=== PATIENT | female | born 1975 | race Caucasian/White ===

== ENCOUNTER 2019-01-27 15:56 | Emergency (ER) | payer OTHER ==
[2019-01-27] MEDS ORDERED: HYDROMORPHONE HCL 1 MG/ML INJ ONE (17:25)
[2019-01-27] MEDS ORDERED: dexAMETHasone 10 MG/ML VIAL ONE (17:25)
[2019-01-27] MEDS ORDERED: DIAZEPAM 5 MG TABLET ONE ×2 (17:25→18:41)
--- NOTE | 2019-01-27 18:38 | ER ---
Nurse's Notes [facility] Name: Sakina Pino Age: 43 yrs Sex: Female : 1975 Arrival Date: 01/27/2019 Time: 16:09 Bed 26 Private MD: Diagnosis: Pain in hip Presentation: 01/27 16:21 Presenting complaint: Patient states: left hip pain, hx of arachnoiditis that affects iw her left side, pain is chronic but got worse around noon today. Transition of care: patient was not received from another setting of care. Onset of symptoms was January 27, 2019. Risk Assessment: Do you want to hurt yourself or someone else? Patient reports no desire to harm self or others. Initial Sepsis Screen: Does the patient meet any 2 criteria? No. Patient's initial sepsis screen is negative. Does the patient have a suspected source of infection? No. Patient's initial sepsis screen is negative. Care prior to arrival: None. 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 - Social history:: Smoking status: Patient/guardian denies using tobacco. - Ebola Screening: : Patient negative for fever greater than or equal to 101.5 degrees Fahrenheit, and additional compatible Ebola Virus Disease symptoms Patient denies exposure to infectious person Patient denies travel to an Ebola-affected area in the 21 days before illness onset No symptoms or risks identified at this time. Screenin:53 Abuse screen: Denies threats or abuse. Denies injuries from another. Nutritional mg2 screening: No deficits noted. Tuberculosis screening: No symptoms or risk factors identified. Fall Risk Ambulatory Aid- None/Bed Rest/Nurse Assist (0 pts). Assessment: 18:52 General: Appears in no apparent distress. comfortable, Behavior is calm, cooperative. mg2 Pain: Complains of pain in left hip Pain does not radiate. Pain currently is 5 out of 10 on a pain scale. Quality of pain is described as aching, Pain began gradually, Is intermittent, chronic. Neuro: Level of Consciousness is awake, alert, obeys commands, Oriented to person, place, time, situation. Cardiovascular: Capillary refill < 3 seconds Patient's skin is warm and dry. Respiratory: Airway is patent Respiratory effort is even, unlabored, Respiratory pattern is regular, symmetrical. GI: No signs and/or symptoms were reported involving the gastrointestinal system. : No signs and/or symptoms were reported regarding the genitourinary system. EENT: No signs and/or symptoms were reported regarding the EENT system. Derm: Skin is intact, is healthy with good turgor, Skin is pink, warm \T\ dry. normal. Musculoskeletal: Circulation, motion, and sensation intact. Capillary refill < 3 seconds, Reports pain in left hip. Vital Signs: 16:24 BP 156 / 101; Pulse 97; Resp 20 S; Temp 97.4; Pulse Ox 100% on R/A; Weight 83.91 kg; iw Height 5 ft. 4 in. (162.56 cm); Pain 10/10; 18:30 BP 140 / 78; Pulse 90; Resp 18; Temp 98; Pulse Ox 100% on R/A; mg2 16:24 Body Mass Index 31.75 (83.91 kg, 162.56 cm) iw ED Course: 16:09 Patient arrived in ED. iw 16:22 Kenn[facility] Ordaz [facility]C [facility]. snw 16:22 Aliyah Campos MD is Attending Physician. snw 16:22 Triage completed. iw 16:24 Arm band placed on. iw 17:21 Yamil Ramirez, CAYLA is Primary Nurse. mg2 18:53 No provider procedures requiring assistance completed. Patient did not have IV access mg2 during this emergency room visit. 18:54 Patient has correct armband on for positive identification. mg2 Administered Medications: 17:31 Drug: Dilaudid 1 mg Route: IM; Site: right gluteus; mg2 18:51 Follow up: Response: No adverse reaction mg2 18:52 Follow up: Response: RASS: Alert and Calm (0) mg2 17:31 Drug: Valium 5 mg Route: PO; mg2 18:51 Follow up: Response: No adverse reaction mg2 17:32 Drug: Decadron 10 mg Route: IM; Site: left gluteus; mg2 18:52 Follow up: Response: No adverse reaction mg2 18:49 Drug: Valium 5 mg Route: PO; mg2 18:51 Follow up: Response: No adverse reaction; Medication administered at discharge. mg2 Outcome: 18:37 Discharge ordered by . snw 18:54 Discharged to home via wheelchair, with family. mg2 18:54 Condition: stable 18:54 Discharge instructions given to patient, family, Instructed on discharge instructions, follow up and referral plans. Demonstrated understanding of instructions, follow-up care. 18:54 Patient left the ED. mg2 Signatures: Kennedi Ordaz, CARDROOM WORKER-C CARDROOM WORKER-Csnw Alma Delia Flores, CAYLA RN iw Yamil Ramirez RN RN mg2
--- NOTE | 2019-01-27 18:39 | EDPHYS ---
Physician Documentation [facility] Name: Sakina Pino Age: 43 yrs Sex: Female : 1975 Arrival Date: 01/27/2019 Time: 16:09 Bed 26 Private MD: ED Physician Aliyah Campos HPI: 01/27 17:31 This 43 yrs old Female presents to ER via Wheelchair with complaints of Hip snw Pain. 17:31 The patient or guardian reports pain. sustained from a chronic condition, There is no snw obvious deformity, The patient is able to ambulate with assistance. There is no radiation of the patient's discomfort. The complaints affect the left hip. Onset: The symptoms/episode began/occurred at 12:00, and became persistent. Associated signs and symptoms: Loss of consciousness: the patient experienced no loss of consciousness. 17:32 Severity of symptoms: At their worst the symptoms were severe, in the emergency snw department the symptoms are unchanged. patient has chronic pain, managed by Dr. Michaels. Called him today and pt was unable to see him. . [facility]. Pt has two pages of medications that she cannot take 2nd to study med treatment for medullary thyroid ca. Pt has pain pump, oral MS for breakthru pain and takes baclofen . 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 - Social history:: Smoking status: Patient/guardian denies using tobacco. - Ebola Screening: : Patient negative for fever greater than or equal to 101.5 degrees Fahrenheit, and additional compatible Ebola Virus Disease symptoms Patient denies exposure to infectious person Patient denies travel to an Ebola-affected area in the 21 days before illness onset No symptoms or risks identified at this time. ROS: 17:30 Constitutional: Negative for fever, chills, and weight loss, Eyes: Negative for injury, snw pain, redness, and discharge, ENT: Negative for injury, pain, and discharge, Neck: Negative for injury, pain, and swelling, Cardiovascular: Negative for chest pain, palpitations, and edema, Respiratory: Negative for shortness of breath, cough, wheezing, and pleuritic chest pain, Abdomen/GI: Negative for abdominal pain, nausea, vomiting, diarrhea, and constipation, Back: Negative for injury and pain, : Negative for injury, bleeding, discharge, and swelling, Skin: Negative for injury, rash, and discoloration, Neuro: Negative for headache, weakness, numbness, tingling, and seizure, Psych: Negative for depression, anxiety, suicide ideation, homicidal ideation, and hallucinations, Allergy/Immunology: Negative for hives, rash, and allergies. 17:30 MS/extremity: Positive for pain, of the left iliac crest and left hip. Exam: 17:28 Head/Face: Normocephalic, atraumatic. Eyes: Pupils equal round and reactive to light, snw extra-ocular motions intact. Lids and lashes normal. Conjunctiva and sclera are non-icteric and not injected. Cornea within normal limits. Periorbital areas with no swelling, redness, or edema. ENT: Nares patent. No nasal discharge, no septal abnormalities noted. Tympanic membranes are normal and external auditory canals are clear. Oropharynx with no redness, swelling, or masses, exudates, or evidence of obstruction, uvula midline. Mucous membranes moist. Neck: Trachea midline, no thyromegaly or masses palpated, and no cervical lymphadenopathy. Supple, full range of motion without nuchal rigidity, or vertebral point tenderness. No Meningismus. Chest/axilla: Normal chest wall appearance and motion. Nontender with no deformity. No lesions are appreciated. Cardiovascular: Regular rate and rhythm with a normal S1 and S2. No gallops, murmurs, or rubs. Normal PMI, no JVD. No pulse deficits. Respiratory: Lungs have equal breath sounds bilaterally, clear to auscultation and percussion. No rales, rhonchi or wheezes noted. No increased work of breathing, no retractions or nasal flaring. Abdomen/GI: Soft, non-tender, with normal bowel sounds. No distension or tympany. No guarding or rebound. No evidence of tenderness throughout. Back: No spinal tenderness. No costovertebral tenderness. Full range of motion. Skin: Warm, dry with normal turgor. Normal color with no rashes, no lesions, and no evidence of cellulitis. Neuro: Awake and alert, GCS 15, oriented to person, place, time, and situation. Cranial nerves II-XII grossly intact. Motor strength 5/5 in all extremities. Sensory grossly intact. Cerebellar exam normal. Normal gait. Psych: Awake, alert, with orientation to person, place and time. Behavior, mood, and affect are within normal limits. 17:28 Constitutional: The patient appears alert, awake, anxious, pale, flushed 17:28 Musculoskeletal/extremity: Extremities: grossly normal except: noted in the shocking, stabbing pain in left lateral and posterior hip: pain, Circulation is intact in all extremities. Severe pain noted. Vital Signs: 16:24 BP 156 / 101; Pulse 97; Resp 20 S; Temp 97.4; Pulse Ox 100% on R/A; Weight 83.91 kg; iw Height 5 ft. 4 in. (162.56 cm); Pain 10/10; 18:30 BP 140 / 78; Pulse 90; Resp 18; Temp 98; Pulse Ox 100% on R/A; mg2 16:24 Body Mass Index 31.75 (83.91 kg, 162.56 cm) iw MDM: 17:10 Patient medically screened. snw 18:38 Data reviewed: vital signs, nurses notes. Data interpreted: Pulse oximetry: on room air snw is 100 %. Interpretation: normal. Counseling: I had a detailed discussion with the patient and/or guardian regarding: the historical points, exam findings, and any diagnostic results supporting the discharge/admit diagnosis, the need for outpatient follow up, to return to the emergency department if symptoms worsen or persist or if there are any questions or concerns that arise at home. Special discussion: I have referred the patient to see his PCP for further evaluation of high blood pressure. Based on the history and exam findings, there is no indication for further emergent testing or inpatient evaluation. I discussed with the patient/guardian the need to see the scene painter for further evaluation of the symptoms. I discussed with the patient/guardian the need to see the primary care provider for further evaluation of the symptoms. Administered Medications: 17:31 Drug: Dilaudid 1 mg Route: IM; Site: right gluteus; mg2 18:51 Follow up: Response: No adverse reaction mg2 18:52 Follow up: Response: RASS: Alert and Calm (0) mg2 17:31 Drug: Valium 5 mg Route: PO; mg2 18:51 Follow up: Response: No adverse reaction mg2 17:32 Drug: Decadron 10 mg Route: IM; Site: left gluteus; mg2 18:52 Follow up: Response: No adverse reaction mg2 18:49 Drug: Valium 5 mg Route: PO; mg2 18:51 Follow up: Response: No adverse reaction; Medication administered at discharge. mg2 Disposition: 19:00 Co-signature as Attending Physician, Aliyah Campos MD. ma2 Disposition: 01/27/19 18:37 Discharged to Home. Impression: Pain in hip. - Condition is Stable. - Discharge Instructions: Joint Pain, Cryotherapy, Heat Therapy. - Medication Reconciliation Form, Thank You Letter, Antibiotic Education, Prescription Opioid Use form. - Follow up: Private Physician; When: Tomorrow; Reason: Recheck today's complaints, Continuance of care, Re-evaluation by your physician. Follow up: Emergency Department; When: As needed; Reason: Fever > 102 F. Signatures: Kennedi Ordaz, MONCHO-C FIBERGLASS FINISHER-Csnw Alma Delia Flores RN RN Aliyah Campos MD MD vt2 Yamil Ramirez RN RN mg2 Corrections: (The following items were deleted from the chart) 18:54 18:37 01/27/2019 18:37 Discharged to Home. Impression: Pain in hip. Condition is mg2 Stable. Forms are Medication Reconciliation Form, Thank You Letter, Antibiotic Education, Prescription Opioid Use. Follow up: Private Physician; When: Tomorrow; Reason: Recheck today's complaints, Continuance of care, Re-evaluation by your physician. Follow up: Emergency Department; When: As needed; Reason: Fever > 102 F. snw
[2019-01-27 20:10] VITALS: BP 156/101; TEMP 97.4; O2SAT 100
== END 2019-01-27 18:54 | disposition home or self-care (01) ==
LOC: ER 15:56
DX: M25.552 Pain in left hip (principal); Z88.0 Allergy status to penicillin; Z88.1 Allergy status to other antibiotic agents
CPT/HCPCS: 96372; 99283; J1100; J1170

== ENCOUNTER 2019-12-09 10:25 | Emergency (ER) | payer OTHER ==
--- OUTSIDE RECORDS SUMMARY | 2019-12-09 10:28 | XMS REPORT | Summary of Care ---
:1975 Author Organization [facility] - Health Address [address] [place] [address] Care Team Providers Name Role Phone Karlene Sanchez Primary Care Provider Encounter Details Date Type Department Care Team Description 10/11/2019 Orders Only [facility] Doctor Unassigned, No [address] [facility] Name [place] [phone] Allergies Active Allergy Reactions Severity Noted Date Comments Ciprofloxacin Nausea and/or Vomiting 09/09/2018 Hzcpmgxl-Mlaxekshaa-Zkbxfuowf Itching 09/09/2018 Penicillins Unknown - See comments 09/09/2018 Prochlorperazine Edisylate Other - See comments 2018 Sumatriptan Swelling 09/09/2018 documented as of this encounter (statuses as of 10/11/2019) Medications Medication Sig Dispensed Refills Start Date End Date Status cholecalciferol, vitamin Take 500 Units 0 Active D3, 25 mcg (1,000 unit) by mouth. tablet levothyroxine 150 mcg Take 150 mcg by 0 07/01/2019 Active tablet mouth. pioglitazone 30 mg Take 30 mg by 0 08/31/2018 Active tablet mouth. empagliflozin Take 25 mg by 0 09/08/2018 A ctive (JARDIANCE) 25 mg Tab mouth. lamoTRIgine 100 mg Take 100 mg by 0 08/24/2018 Active tablet mouth. amitriptyline 100 mg 0 08/04/2019 Active tablet sevelamer 800 mg tablet Take 800 mg by 0 06/02/2019 Active mouth. furosemide 20 mg tablet Take 20 mg by 0 Active mouth. baclofen 10 mg tablet Take 10 mg by 0 08/16/2018 Active mouth. oxyCODONE 5 mg immediate Take 5 mg by 0 08/08/2019 Active release tablet mouth. ondansetron 8 mg tablet Take 8 mg by 0 07/07/2019 Active mouth. QUEtiapine 300 mg tablet Take 300 mg by 0 11/27/2018 Active mouth. documented as of this encounter (statuses as of 10/11/2019) Active Problems Not on filedocumented as of this encounter (statuses as of 10/11/2019) Social History Tobacco Use Types Packs/Day Years Used Date Never Smoker Smokeless Tobacco: Never Used Alcohol Use Drinks/Week oz/Week Comments Never Alcohol Habits Answer Date Recorded How often do you have a drink containing alcohol? Never 09/21/2019 How many drinks containing alcohol do you have on a typical Not asked day when you are drinking? How often do you have six or more drinks on one occasion? No t asked Sex Assigned at Date Recorded Not on file Job Start Date Occupation Industry Not on file Not on file Not on file Travel History Travel Start Travel End No recent travel history available. COVID-19 Exposure Response Date Recorded In the last month, have you been in contact with No / Unsure 09/21/2019 1:10 PM CDT someone who was confirmed or suspected to have Coronavirus / COVID-19? documented as of this encounter Last Filed Vital Signs Not on filedocumented in this encounter Plan of Treatment Date Type Specialty Care Team Description 10/11/2019 Appointment Radiology Tariq Rae, PAC [address] [place] [phone] Health Maintenance Due Date Last Done Comments DTaP,Tdap,and Td Vaccines (1 - 1988 Tdap) PAP SMEAR 1998 Breast Cancer Screening 2017 (MAMMOGRAM) INFLUENZA VACCINE (Season Ended) 2020 PNEUMOCOCCAL 0-64 YEARS COMBINED Aged Out No longer eligible based on SERIES patient's age to complete this topic documented as of this encounter Procedures Procedure Name Priority Date/Time Associated Diagnosis Comme nts ASSIGNMENT OF BENEFITS Routine 10/11/2019 11:07 AM CDT documented in this encounter Results Not on filedocumented in this encounter Insurance Payer Benefit Plan / Subscriber ID Effective Phone Address T ype Group Dates MEDICARE MEDICARE PART xxxxxxxxxxx 2018-[place] [phone] [address] X Medicare A & B nt 82 [id number] [place] [id number] [place] CIGNA II [id number] 2019-[place] HMO /PPO/POS nt documented as of this encounter
--- OUTSIDE RECORDS SUMMARY | 2019-12-09 10:28 | XMS REPORT | Summary of Care ---
:1975 Author Organization [facility] Address [address] [place] [address] Care Team Providers Name Role Phone Pcp, Patient Does Not Have A Primary Care Provider +[id number] 0-0000 Reason for Visit Reason Comments Hip Pain Encounter Details Date Type Department Care Team Description 09/28/2019 Telephone [facility] Orthopaedic Mildred Rae, PAC Hip Pain Surgery- [place] [address] [facility] [address] [facility], [place] [address] [place] [address] [phone] Allergies Active Allergy Reactions Severity Noted Date Comments Ciprofloxacin Nausea and/or Vomiting 09/09/2018 Eyfikkwu-Mfqwcvcgcw-Hsxuxopsm Itching 09/09/2018 Penicillins Unknown - See comments 09/09/2018 Prochlorperazine Edisylate Other - See comments 2018 Sumatriptan Swelling 09/09/2018 documented as of this encounter (statuses as of 09/28/2019) Medications Medication Sig Dispensed Refills Start Date [...] as of this encounter (statuses as of 09/28/2019) Active Problems Not on filedocumented as of this encounter (statuses as of 09/28/2019) Social History Tobacco Use Types Packs/Day Years [...] filedocumented in this encounter Plan of Treatment Name Type Priority Associated Diagnoses Order S chedule XR KUB IMAGING Routine Right hip pain Expected: , Expires: 09/27/2020 Health Maintenance Due Date Last Done Comments DTaP,Tdap,and Td Vaccines (1 - 1988 Tdap) PAP SMEAR 1998 Breast Cancer Screening 2017 (MAMMOGRAM) INFLUENZA VACCINE (Season Ended) 2020 PNEUMOCOCCAL 0-64 YEARS COMBINED Aged Out No longer eligible based on SERIES patient's age to complete this topic documented as of this encounter Results Not on filedocumented in this encounter Visit Diagnoses Diagnosis Right hip pain - Primary Pain in joint, pelvic region and thigh documented in this encounter Insurance Payer Benefit Plan / Subscriber ID Effective Phone Address T ype Group Dates MEDICARE MEDICARE PART xxxxxxxxxxx 2018-[place] [phone] [address] Medicare A & B nt 82 [id number] [place] [id number] CIGNA CIGNA II [id number] 2019-[place] HMO /PPO/POS nt documented as of this encounter
--- OUTSIDE RECORDS SUMMARY | 2019-12-09 10:28 | XMS REPORT | Summary of Care ---
:1975 Author Organization [facility] Address [address] [place] [id number] Care Team Providers Name Role Phone Pcp, Patient Does Not Have A Primary Care Provider +[id number] 0-0000 Encounter Details Date Type Department Care Team Description 09/21/2019 [facility] [place] Rad[facility] [address] [place] [address] [place], [place] [phone] Allergies Active Allergy Reactions Severity Noted Date Comments Ciprofloxacin Nausea and/or Vomiting 09/09/2018 Fsjdvfuk-Pbtnmixdhi-Qunjgjhwp Itching 09/09/2018 Penicillins Unknown - See comments 09/09/2018 Prochlorperazine Edisylate Other - See comments 2018 Sumatriptan Swelling 09/09/2018 documented as of this encounter (statuses as of 09/22/2019) Medications Medication Sig Dispensed Refills Start Date [...] as of this encounter (statuses as of 09/22/2019) Active Problems Not on filedocumented as of this encounter (statuses as of 09/22/2019) Social History Tobacco Use Types Packs/Day Years [...] of Treatment Name Type Priority Associated Diagnoses Date/Ti me XR HIPS 2 VW RIGHT IMAGING Routine Pain 0 1:15 PM CDT Name Type Priority Associated Diagnoses Order S chedule XR HIPS 2 VW RIGHT IMAGING Routine Pain 1 Occurre nces starting 09/21/2019 unti l 09/21/2019 Health Maintenance Due Date Last Done Comments DTaP,Tdap,and Td Vaccines (1 - 1988 Tdap) PAP SMEAR 1998 Breast Cancer Screening 2017 (MAMMOGRAM) INFLUENZA VACCINE (Season Ended) 2020 PNEUMOCOCCAL 0-64 YEARS COMBINED Aged Out No longer eligible based on SERIES patient's age to complete this topic documented as of this encounter Results Not on filedocumented in this encounter Visit Diagnoses Diagnosis Pain Generalized pain documented in this encounter Insurance Payer Benefit Plan / Subscriber ID Effective Phone Address T ype Group Dates MEDICARE MEDICARE PART xxxxxxxxxxx 2018-[place] [phone] [address] Medicare A & B nt 82 [id number] [place] [id number] CIGNA CIGNA II [id number] 2019-[place] HMO /PPO/POS nt [id number] documented as of this encounter
--- OUTSIDE RECORDS SUMMARY | 2019-12-09 10:28 | XMS REPORT | Summary of Care ---
:1975 Author Organization [facility] - Health Address [address] [place] [address] Care Team Providers Name Role Phone Pcp, Patient Does Not Have A Primary Care Provider +1-000-00 0-0000 Encounter Details Date Type Department Care Team Description 09/26/2019 Orders Only [facility] Doctor Unassigned, No 301 [facility] Name [address] [phone] Allergies Active Allergy Reactions Severity Noted Date Comments Ciprofloxacin Nausea and/or Vomiting 09/09/2018 Nxfoyloj-Blpoquaxww-Kejlcipsr Itching 09/09/2018 Penicillins Unknown - See comments 09/09/2018 Prochlorperazine Edisylate Other - See comments 2018 Sumatriptan Swelling 09/09/2018 documented as of this encounter (statuses as of 09/26/2019) Medications Medication Sig Dispensed Refills Start Date [...] as of this encounter (statuses as of 09/26/2019) Active Problems Not on filedocumented as of this encounter (statuses as of 09/26/2019) Social History Tobacco Use Types Packs/Day Years [...] filedocumented in this encounter Plan of Treatment Health Maintenance Due Date Last Done Comments DTaP,Tdap,and Td Vaccines (1 - 1988 Tdap) PAP SMEAR 1998 Breast Cancer Screening 2017 (MAMMOGRAM) INFLUENZA VACCINE (Season Ended) 2020 PNEUMOCOCCAL 0-64 YEARS COMBINED Aged Out No longer eligible based on SERIES patient's age to complete this topic documented as of this encounter Procedures Procedure Name Priority Date/Time Associated Diagnosis Comme nts REFERRAL- Routine 09/26/2019 12:01 AM CDT REQUEST/RESPONSE documented in this encounter Results Not on filedocumented in this encounter Insurance Payer Benefit Plan / Subscriber ID Effective Phone Address T ype Group Dates MEDICARE MEDICARE PART xxxxxxxxxxx 2018-[place] [phone] [address] X Medicare A & B nt 82 [id number] [place] [id number] CIGNA CIGNA II [id number] 2019-[place] HMO /PPO/POS nt documented as of this encounter
--- OUTSIDE RECORDS SUMMARY | 2019-12-09 10:28 | XMS REPORT | Summary of Care ---
:1975 Author Organization [facility] Address [address] [place] [address] Care Team Providers Name Role Phone Pcp, Patient Does Not Have A Primary Care Provider [phone] Reason for Referral MRI/CAT Scan (Routine) Status Reason Specialty Diagnoses / Referred By Referred To Procedures Contact Contact New Request Diagnostic Diagnoses Right hip pain Camacho Burris Radiology Procedures MR HIP RIGHT WO LANEY Torres MD [address] [place] [address] [place] [address] Reason for Visit Reason Comments Orders Right Hip MRI Orders Encounter Details Date Type Department Care Team Description 09/22/2019 Telephone [facility] Orthopaedic Camacho Burris (Right Hip MRI Surgery- Dottie Torres MD Orders) [address] [facility], [address] [facility] [address] [facility] [place] [address] [address] [place], [place] [phone] Allergies Active Allergy Reactions Severity Noted Date Comments Ciprofloxacin Nausea and/or Vomiting 09/09/2018 Gpofgqoi-Xyuntyjrtq-Rpqioixsd Itching 09/09/2018 Penicillins Unknown - See comments [...] Type Priority Associated Diagnoses Order S chedule MR HIP RIGHT WO CONTRAST IMAGING Routine Right hip pain E xpected: 09/22/2019, Expires: 2020 Health Maintenance Due Date Last Done Comments [...] X Medicare A & B nt 82 [id number] [place] [id number] CIGNA CIGNA II [id number] 2019-Prese HMO /PPO/POS nt documented as of this encounter
--- OUTSIDE RECORDS SUMMARY | 2019-12-09 10:29 | XMS REPORT | Summary of Care ---
:1975 Author Organization [facility] - [facility] Address [address] [place] [address] Care Team Providers Name Role Phone Karlene Sanchez Primary Care Provider Reason for Visit Reason Comments Orders Please fax MRI orders to MD Coleman diagnostic [phone]. Also Can her issue be imaged by CT? She d oesn't have nearly as many problems with CT scans Encounter Details Date Type Department Care Team Description 11/08/2019 Telephone [facility] Orthopaedic Camacho Burris (Please fax MRI Surgery- Dottie Torres MD orders to MD Coleman [address], [address] [facility] [address] [phone]. [place] [address] [place], [place] her issue be imaged by [phone] CT? She doesn't have [phone] nearly as many problems [phone] scans ) (Fax) Allergies Active Allergy Reactions Severity Noted Date Comments Ciprofloxacin Nausea and/or Vomiting 09/09/2018 Iikwmyqv-Ktdzofuxce-Bijupwgjy Itching 09/09/2018 Penicillins Unknown - See comments 09/09/2018 Prochlorperazine Edisylate Other - See comments 2018 Sumatriptan Swelling 09/09/2018 documented as of this encounter (statuses as of 11/08/2019) Medications Medication Sig Dispensed Refills Start Date [...] as of this encounter (statuses as of 11/08/2019) Active Problems Not on filedocumented as of this encounter (statuses as of 11/08/2019) Social History Tobacco Use Types Packs/Day Years [...] been in contact with No / Unsure 10/11/2019 11:11 AM CDT someone who was confirmed or suspected to have Coronavirus / COVID-19? documented as of this encounter Last Filed Vital Signs Not on filedocumented in this encounter Plan of Treatment Health Maintenance Due Date Last Done Comments DTaP,Tdap,and Td Vaccines (1 - 1988 Tdap) Depression Screening 1989 PAP SMEAR 1998 Breast Cancer Screening 2017 [...] X Medicare A & B nt 82 [id number] [place] [address] CIGNA CIGNA II [id number] 2019-Prese HMO /PPO/POS nt documented as of this encounter
--- OUTSIDE RECORDS SUMMARY | 2019-12-09 10:29 | XMS REPORT | Summary of Care ---
:1975 Author Organization [facility] Address [address] [place] [address] Care Team Providers Name Role Phone Karlene Sanchez Primary Care Provider Reason for Visit Reason Comments Orders Please fax MRI orders to MD Coleman diagnostic [phone]. Also Can her issue be imaged by CT? She d oesn't have nearly as many problems with CT scans Encounter Details Date Type Department Care Team Description 11/08/2019 Telephone [facility] Orthopaedic Camacho Burris (Please fax MRI Surgery- Dottie Torres MD orders to MD Coleman [address] [place], [address] [facility] [address] [phone]. [place] [address] [address] [place], [place] her issue be imaged by [phone] CT? She doesn't have [phone] nearly as many problems [phone] scans ) (Fax) Allergies Active Allergy Reactions Severity Noted Date Comments Ciprofloxacin Nausea and/or Vomiting 09/09/2018 Hhzdywkf-Abyhyikyoc-Aarrbnvat Itching 09/09/2018 Penicillins Unknown - See comments 09/09/2018 Prochlorperazine Edisylate Other - See comments 2018 Sumatriptan Swelling 09/09/2018 documented as of this encounter (statuses as of 11/09/2019) Medications Medication Sig Dispensed Refills Start Date [...] as of this encounter (statuses as of 11/09/2019) Active Problems Not on filedocumented as of this encounter (statuses as of 11/09/2019) Social History Tobacco Use Types Packs/Day Years [...] X Medicare A & B nt 82 [id number] [place] [id number] CIGNA CIGNA II [id number] 2019-Prese HMO /PPO/POS nt documented as of this encounter
--- OUTSIDE RECORDS SUMMARY | 2019-12-09 10:29 | XMS REPORT | Summary of Care ---
:1975 Author Organization [facility] Address [address] [place] [address] Care Team Providers Name Role Phone Pcp, Patient Does Not Have A Primary Care Provider [phone] [phone] Reason for Referral Radiology Services (Routine) Status Reason Specialty Diagnoses / Referred By Referred To Procedures Contact Contact New Request Diagnostic Diagnoses Pain Camacho Burris Radiology Procedures XR HIPS 2 VW RIGHT MD Brian [address] [place] [address] Reason for Visit Reason Comments Hip Pain right hip pain, no injury, p ain ongoing for years worse the past 6 months. Arrived with crutch assist, no films. Encounter Details Date Type Department Care Team Description 09/21/2019 Office Visit [facility] Orthopaedic Camacho Burris L , Pain (Primary Dx) Surgery- Dottie MC [address] [facility] [address] [place] [address] [address] [place], [place] [phone] [address] Allergies Active Allergy Reactions Severity Noted Date Comments Ciprofloxacin Nausea and/or Vomiting 09/09/2018 Hamxcsyh-Fsfwerytnv-Qfhkuerhy Itching 09/09/2018 Penicillins Unknown - See comments 09/09/2018 Prochlorperazine Edisylate Other - See comments 2018 Sumatriptan Swelling 09/09/2018 documented as of this encounter (statuses as of 10/27/2019) Medications Medication Sig Dispensed Refills Start Date [...] as of this encounter (statuses as of 10/27/2019) Active Problems Not on filedocumented as of this encounter (statuses as of 10/27/2019) Social History Tobacco Use Types Packs/Day Years [...] of this encounter Last Filed Vital Signs Vital Sign Reading Time Taken Comments Blood Pressure 110/74 09/21/2019 1:23 PM CDT Pulse 83 09/21/2019 1:23 PM CDT Temperature - - Respiratory Rate - - Oxygen Saturation - - Inhaled Oxygen Concentration - - Weight 83.9 kg (185 lb) 09/21/2019 1:23 PM CDT Height 163.8 cm (5' 4.5") 09/21/2019 1:23 PM CDT Body Mass Index 31.26 09/21/2019 1:23 PM CDT documented in this encounter Progress Notes Camacho Burris MD - 09/21/2019 1:00 PM CDT Cc: Chief Complaint Patient presents with Hip Pain right hip pain, no injury, pain ongoing for years worse the past 6 months. Arrived with crutch assist, no films. Sakina Pino is a 44 year old female. Hip Pain Incident onset: over 2 years. The incident occurred at home. There was no injury mechanism. The painis present in the right hip. The quality of the pain is described as aching and burning. The pain isat a severity of 7/10. The pain is moderate. The pain has been worsening since onset. Associated symptoms include an inability to bear weight and a loss of motion. The symptoms are aggravated by movement and weight bearing. She has tried NSAIDs, non-weight bearing and acetaminophen for the symptoms. The treatment provided no relief. Allergies Sakina is allergic to ciprofloxacin; fiavaiqk-rtnwkucvwh-uiaengcao; penicillins; prochlorperazine edisylate; and sumatriptan. Medications No outpatient medications prior to visit. No facility-administered medications prior to visit. Histories No past medical history on file. No past surgical history on file. Social History Socioeconomic History Marital status: Single Spouse name: Not on file Number of children: Not on file Years of education: Not on file Highest education level: Not on file Occupational History Not on file Social Needs Financial resource strain: Not on file Food insecurity: Worry: Not on file Inability: Not on file Transportation needs: Medical: Not on file Non-medical: Not on file Tobacco Use Smoking status: Never Smoker Smokeless tobacco: Never Used Substance and Sexual Activity Alcohol use: Never Frequency: Never Drug use: Not on file Sexual activity: Not on file Lifestyle Physical activity: Days per week: Not on file Minutes per session: Not on file Stress: Not on file Relationships Social connections: Talks on phone: Not on file Gets together: Not on file Attends samaritan service: Not on file Active member of club or organization: Not on file Attends meetings of clubs or organizations: Not on file Relationship status: Not on file Intimate partner violence: Fear of current or ex partner: Not on file Emotionally abused: Not on file Physically abused: Not on file Forced sexual activity: Not on file Other Topics Concern Not on file Social History Narrative Not on file No family history on file. Review of Systems Constitutional: Positive for activity change. Respiratory: Negative. Breasts: Negative. Cardiovascular: Negative. Gastrointestinal: Negative. Genitourinary: Negative. Musculoskeletal: Positive for back pain and gait problem. Skin: Negative. Psychiatric/Behavioral: Negative. Endocrine: Endocrine negative Vital Signs There were no vitals taken for this visit. Physical Exam Musculoskeletal: Right hip: She exhibits decreased range of motion and decreased strength. General: Well-developed well-nourished oriented to person place and time HEENT normocephalic atraumatic atraumatic pupils equal round reactive to light extraocular muscles intact Cervical thoracic and lumbar spine without focal deficit normal kyphosis and lordosis Chest clear to auscultation and percussion Cardiovascular regular rate and rhythm without gallop rub or murmur soft without organomegaly Normal bowel sounds Neurologic: Focal myotome or dermatomal deficits Vascular: Intact symmetrical bilateral upper and lower extremities Skin without stasis varicosities or breakdown Extremities without cyanosis clubbing or edema Lymphatics no peripheral lymphedema Psych normal mood and affect. Neurovascular function is intact. To include brisk capillary refill warm pink skin active motor function and sensory function intact. Nursing note and vitals reviewed. Assessment/Plan Right hip pain Will order an MRI of the right hip. Follow up within ten days for results. documented in this encounter Plan of Treatment Health Maintenance Due Date Last Done Comments DTaP,Tdap,and Td Vaccines (1 - 1988 Tdap) Depression Screening 1989 PAP SMEAR 1998 Breast Cancer Screening 2017 (MAMMOGRAM) INFLUENZA VACCINE (Season Ended) 2020 PNEUMOCOCCAL 0-64 YEARS COMBINED Aged Out No longer eligible based on SERIES patient's age to complete this topic documented as of this encounter Results XR HIPS 2 VW RIGHT (09/21/2019 1:15 PM CDT) Specimen Narrative Performed At This result has an attachment that is no t available. Normal study PACS Performing Organization Address City/State/Zipcode Phone Number PACS documented in this encounter Visit Diagnoses Diagnosis Pain - Primary Generalized pain documented in this encounter Insurance Payer Benefit Plan / Subscriber ID Effective Phone Address T ype Group Dates MEDICARE MEDICARE PART xxxxxxxxxxx 2018-[place] [phone] [address] X Medicare A & B nt 82 [id number] [place] [id number] CIGNA CIGNA II [id number] 2019-[place] HMO /PPO/POS nt [id number] 1 documented as of this encounter
--- OUTSIDE RECORDS SUMMARY | 2019-12-09 10:29 | XMS REPORT | Summary of Care ---
:1975 Author Organization [facility] Address [address] [place] [address] Care Team Providers Name Role Phone Jarad Sanchezie Natalya Primary Care Provider Reason for Referral MRI/CAT Scan (Routine) Status Reason Specialty Diagnoses / Referred By Referred To Procedures Contact Contact Pending Review Diagnostic Diagnoses Right hip pain Camacho Burris Radiology Procedures CT HIP RIGHT WO LANEY Torres MD [address] [place] [address] [place] [address] Reason for Visit Reason Comments Orders CT Scan of RT Hip - Shaq son Encounter Details Date Type Department Care Team Description 11/25/2019 Telephone [facility] Orthopaedic Camacho Burris (CT Scan of RT Surgery- Dottie Torres MD Hip - MD Coleman ) [address] [facility] [address] [place] [address] [place], [place] [phone] Allergies Active Allergy Reactions Severity Noted Date Comments Ciprofloxacin Nausea and/or Vomiting 09/09/2018 Mtxjouov-Dgoghsqvsj-Tpexwxxga Itching 09/09/2018 Penicillins Unknown - See comments 09/09/2018 Prochlorperazine Edisylate Other - See comments 2018 Sumatriptan Swelling 09/09/2018 documented as of this encounter (statuses as of 11/25/2019) Medications Medication Sig Dispensed Refills Start Date [...] as of this encounter (statuses as of 11/25/2019) Active Problems Not on filedocumented as of this encounter (statuses as of 11/25/2019) Social History Tobacco Use Types Packs/Day Years [...] Travel End No recent travel history available. documented as of this encounter Last Filed Vital Signs Not on filedocumented in this encounter Plan of Treatment Name Type Priority Associated Diagnoses Order S chedule CT HIP RIGHT WO CONTRAST IMAGING Routine Right hip pain E xpected: 11/25/2019, Expires: 2020 Health Maintenance Due Date Last Done Comments DTaP,Tdap,and Td Vaccines (1 - 1988 Tdap) Depression Screening 1989 PAP SMEAR 1998 Breast Cancer Screening 2017 (MAMMOGRAM) INFLUENZA VACCINE (#1) 2020 PNEUMOCOCCAL 0-64 YEARS COMBINED Aged Out [...] X Medicare A & B nt 82 [id number] [place] [address] CIGNA CIGNA II [id number] 2019-Prese HMO /PPO/POS nt documented as of this encounter
--- OUTSIDE RECORDS SUMMARY | 2019-12-09 10:29 | XMS REPORT | Summary of Care ---
:1975 Author Organization [facility] Address [address] [place] [address] Care Team Providers Name Role Phone Daniel Karlene Natalya Primary Care Provider Encounter Details Date Type Department Care Team Description 10/11/2019 Hospital Encounter [facility] Mildred Celestin, PAC Arrived [facility] [address] [facility] [place] [address] [place] [address] [phone] Allergies Active Allergy Reactions Severity Noted Date Comments Ciprofloxacin Nausea and/or Vomiting 09/09/2018 Jlrwyici-Aieyfwmiiz-Cgyjjpanp Itching 09/09/2018 Penicillins Unknown - See comments 09/09/2018 Prochlorperazine Edisylate Other - See comments 2018 Sumatriptan Swelling 09/09/2018 documented as of this encounter (statuses as of 10/12/2019) Medications Medication Sig Dispensed Refills Start Date [...] as of this encounter (statuses as of 10/12/2019) Active Problems Not on filedocumented as of this encounter (statuses as of 10/12/2019) Social History Tobacco Use Types Packs/Day Years [...] Name Priority Date/Time Associated Diagnosis Comme nts XR KUB Routine 10/11/2019 12:10 PM Right hip pain Result s for this CDT procedure are i n the results section . documented in this encounter Results XR KUB (10/11/2019 12:10 PM CDT) Specimen Narrative Performed At HISTORY: Bone stimulator placement. PACS/VR/DOSE FINDINGS: 2 abdominal radiographs are winston bmitted. A morphine pump is seen implanted over the right abdominal wall with catheter entering the spinal canal at L3-L4 level and the electrode i s visualized projected up to the level of T12. Entire length of the Electrode wire is n ot included in these 2 images. Note made of mild constipation and multi level degenerative disc disease. Procedure Note [facility], Radiant Results Inft User - 2019 12:14 PM CDT HISTORY: Bone stimulator placement. FINDINGS: 2 abdominal radiographs are winston bmitted. A morphine pump is seen implanted over the right abdominal wall with catheter entering the spinal canal at L3-L4 level and the electrode i s visualized projected up to the level of T12. Entire length of the Elect rode wire is not included in these 2 images. Note made of mild constipation and multi level degenerative disc disease. Performing Organization Address City/[facility] Phone Number PACS/VR/DOSE documented in this encounter Visit Diagnoses Diagnosis Right hip pain Pain in joint, pelvic region and thigh documented in this encounter Insurance Payer Benefit Plan / Subscriber ID Effective Phone Address T ype Group Dates MEDICARE MEDICARE PART xxxxxxxxxxx 2018-Prese [phone] [address] X Medicare A & B nt 82 [id number] [place] [id number] CIGNA CIGNA II [id number] 2019-Prese HMO /PPO/POS nt [id number] 1 documented as of this encounter
--- OUTSIDE RECORDS SUMMARY | 2019-12-09 10:29 | XMS REPORT | Summary of Care ---
:1975 Author Organization [facility] Address [address] [place] [address] Care Team Providers Name Role Phone Karlene Sanchez Natalya Primary Care Provider Reason for Visit Reason Comments Orders Encounter Details Date Type Department Care Team Description 10/27/2019 Telephone [facility] Orthopaedic Camacho Burris MD Orders Surgery- Keymar [address] [facility] [address] [facility], [place] [address] [address] [place] [address] [phone] Allergies Active Allergy Reactions Severity Noted Date Comments Ciprofloxacin Nausea and/or Vomiting 09/09/2018 Pyieehun-Shyuukomit-Fdulpoydl Itching 09/09/2018 Penicillins Unknown - See comments 09/09/2018 Prochlorperazine Edisylate Other - See comments 2018 Sumatriptan Swelling 09/09/2018 documented as of this encounter (statuses as of 11/01/2019) Medications Medication Sig Dispensed Refills Start Date [...] as of this encounter (statuses as of 11/01/2019) Active Problems Not on filedocumented as of this encounter (statuses as of 11/01/2019) Social History Tobacco Use Types Packs/Day Years [...] X Medicare A & B nt 82 [id number] [place] [id number] CIGNA CIGNA II [id number] 2019-[place] HMO /PPO/POS nt documented as of this encounter
--- OUTSIDE RECORDS SUMMARY | 2019-12-09 10:29 | XMS REPORT | Summary of Care ---
:1975 Author Organization [facility] Address [address] [place] [address] Care Team Providers Name Role Phone Pcp, Patient Does Not Have A Primary Care Provider [phone] [phone] Reason for Referral Radiology Services (Routine) Status Reason Specialty Diagnoses / Referred By Referred To Procedures Contact Contact New Request Diagnostic Diagnoses Pain Camacho Burris Radiology Procedures XR HIPS 2 VW RIGHT MD Brian [address] [place] [address] Reason for Visit Reason Comments Hip Pain right hip pain, no injury, p ain ongoing for years worse the past 6 months. Arrived with crutch assist, no films. Encounter Details Date Type Department Care Team Description 09/21/2019 Office Visit [facility] Orthopaedic Camacho Burris L , Pain (Primary Dx) Surgery- Dottie MC [address] [facility] [address] [place] [address] [address] [place], [place] [phone] Allergies Active Allergy Reactions Severity Noted Date Comments Ciprofloxacin Nausea and/or Vomiting 09/09/2018 Xthjmdyq-Cfrpqfulkb-Deoxacsoc Itching 09/09/2018 Penicillins Unknown - See comments [...] symptoms. The treatment provided no relief. Allergies aSkina is allergic to ciprofloxacin; yafebmsz-inisodnesz-shzoqztsl; penicillins; prochlorperazine edisylate; and sumatriptan. Medications No [...] file Gets together: Not on file Attends rastafarian service: Not on file Active member of [...] X Medicare A & B nt 82 [id number] [place] [address] CIGNA CIGNA II [id number] 2019-[place] HMO /PPO/POS nt [id number] 1 documented as of this encounter
--- OUTSIDE RECORDS SUMMARY | 2019-12-09 10:30 | XMS REPORT | Summary of Care ---
:1975 Author Organization [facility] Address [address] [place] [address] Care Team Providers Name Role Phone Karlene Sanchez Primary Care Provider Reason for Referral MRI/CAT Scan (Routine) Status Reason Specialty Diagnoses / Referred By Referred To Procedures Contact Contact Authorized Location Diagnostic Diagnoses Right hip pain Eyal Burris Md Preference Radiology Procedures CT HIP RIGHT WO CONTRAST MD Jared Mathis [address] [place] [address] Reason for Visit Reason Comments Orders CT Scan of RT Hip - Shaq son Encounter Details Date Type Department Care Team Description 11/25/2019 Telephone [facility] Orthopaedic Camacho Burris (CT Scan of RT Surgery- Dottie Torres MD Hip - MD Coleman ) [address] [place], [address] [place] [place] [address] [address] [place], [place] [phone] Allergies Active Allergy Reactions Severity Noted Date Comments Ciprofloxacin Nausea and/or Vomiting 09/09/2018 Jceoqubi-Zmnpsccjud-Jzcqwehnb Itching 09/09/2018 Penicillins Unknown - See comments 09/09/2018 Prochlorperazine Edisylate Other - See comments 2018 Sumatriptan Swelling 09/09/2018 documented as of this encounter (statuses as of 11/30/2019) Medications Medication Sig Dispensed Refills Start Date [...] as of this encounter (statuses as of 11/30/2019) Active Problems Not on filedocumented as of this encounter (statuses as of 11/30/2019) Social History Tobacco Use Types Packs/Day Years [...] Date Last Done Comments DTaP,Tdap,and Td Vaccines ( - 1988 Tdap) Depression Screening 1989 PAP [...] X Medicare A & B nt 82 [id number] [place] [id number] CIGNA CIGNA II [id number] 2019-Prese HMO /PPO/POS nt documented as of this encounter
--- OUTSIDE RECORDS SUMMARY | 2019-12-09 10:30 | XMS REPORT | Summary of Care ---
:[address] [facility] - Health Address [address] [place] [address] Care Team Providers Name Role Phone Karlene Sanchez Primary Care Provider Encounter Details Date Type Department Care Team Description 12/05/[address] [facility] Doctor Unassigned, No [address] [facility] Name [place] [phone] Allergies Active Allergy Reactions Severity Noted Date Comments Ciprofloxacin Nausea and/or Vomiting 09/09/2018 Hcpuktws-Xibinowrxa-Mwvriiusn Itching 09/09/2018 Penicillins Unknown - See comments 09/09/2018 Prochlorperazine Edisylate Other - See comments 2018 Sumatriptan Swelling 09/09/2018 documented as of this encounter (statuses as of 12/07/2019) Medications Medication Sig Dispensed Refills Start Date [...] as of this encounter (statuses as of 12/07/2019) Active Problems Not on filedocumented as of this encounter (statuses as of 12/07/2019) Social History Tobacco Use Types Packs/Day Years [...] Date/Time Associated Diagnosis Comme nts REFERRAL- Routine 12/05/2019 12:01 AM CDT REQUEST/RESPONSE documented in this encounter Results Not on filedocumented in this encounter Insurance Payer Benefit Plan / Subscriber ID Effective Phone Address T ype Group Dates MEDICARE MEDICARE PART xxxxxxxxxxx 2018-Prese [phone] [address] X Medicare A & B nt 82 [id number] [place] [id number] CIGNA CIGNA II [id number] 2019-Prese HMO /PPO/POS nt documented as of this encounter
--- OUTSIDE RECORDS SUMMARY | 2019-12-09 10:30 | XMS REPORT | Summary of Care ---
:1975 Author Organization [facility] - Health Address [address] [place] [id number] Care Team Providers Name Role Phone Karlene Sanchez Primary Care Provider Encounter Details Date Type Department Care Team Description 11/25/2019 Orders Only [facility] Doctor Unassigned, No 301 [facility] Name [place] [phone] Allergies Active Allergy Reactions Severity Noted Date Comments Ciprofloxacin Nausea and/or Vomiting 09/09/2018 Xpnmbgvw-Yvsmirnvys-Exukdaafa Itching 09/09/2018 Penicillins Unknown - See comments 09/09/2018 Prochlorperazine Edisylate Other - See comments 2018 Sumatriptan Swelling 09/09/2018 documented as of this encounter (statuses as of 12/06/2019) Medications Medication Sig Dispensed Refills Start Date [...] as of this encounter (statuses as of 12/06/2019) Active Problems Not on filedocumented as of this encounter (statuses as of 12/06/2019) Social History Tobacco Use Types Packs/Day Years [...] Date/Time Associated Diagnosis Comme nts REFERRAL- Routine 11/25/2019 12:01 AM CDT REQUEST/RESPONSE documented in this encounter Results Not on filedocumented in this encounter Insurance Payer Benefit Plan / Subscriber ID Effective Phone Address T ype Group Dates MEDICARE MEDICARE PART xxxxxxxxxxx 2018-Prese [phone] [address] X Medicare A & B nt [id number] [place] [id number] CIGNA CIGNA II [id number] 2019-Prese HMO /PPO/POS nt documented as of this encounter
--- OUTSIDE RECORDS SUMMARY | 2019-12-09 10:31 | XMS REPORT | Continuity of Care Document ---
:1975 Author Organization [facility] Address [address] [place] [address] [address] [place] [address] Care Team Providers Name Role Phone Primary Care Physician Unavailable Mae AIKEN Attending Clinician Unavailable Paula ZAMORA Attending Clinician Unavailable EDOUARD Attending Clinician Unavailable SYSTEM, NOT IN Attending Clinician Unavailable DAPHNIE Attending Clinician Unavailable CARLYN Attending Clinician Unavailable VIRGEN Attending Clinician Unavailable Doctor Unassigned, Name Attending Clinician Unavailable Fatuma MC, L Attending Clinician ASHLEY Attending Clinician Unavailable Payers Payer Name Policy Type Policy Number Effective Date Expiration Date S trey MEDICARE PART A [id number] 2018 AND B 00:00:00 [facility] [id number] 2014 OPEN ACCESS 00:00:00 [place] [id number] 2017 2018 00:00:00 00:00:00 Problems This patient has no known problems. Allergies, Adverse Reactions, Alerts This patient has no known allergies or adverse reactions. Medications This patient has no known medications. Vital Signs Vital Name Observation Time Observation Value Comments Source HEIGHT 2019-11-11 00:00:00 163.8 cm WEIGHT 2019-11-11 00:00:00 90.85 kg Procedures This patient has no known procedures. Encounters Start End Encounter Admission Attending Care Care Encounter Source Date/Time Date/Time Type Type Clinicians Facility Department ID 2019-11-30 Outpatient LOYD AIKEN MDA [id number] 09:01:19 MARTY de [place] 2019-11-25 Outpatient NOAH, MDA MDA [id number] 15:17:20 ONJUANCARLOS Leonel de los [place]antos 2019-11-22 [facility] MDA [id number] 17:22:41 LIONEL Leonel de [place]antos 2019-11-16 Outpatient SYSTEM, MDA MDA [id number] 10:33:19 PROVIDER Sanjeev de los santos 2019-11-11 Outpatient MDA MDA [id number] 11:56:21 Leonel de los santos 2020-01-03 2020-01-03 Outpatient DONAVON ELLER, MDA MDA [id number] 00:00:00 00:00:00 LOVE de [place]antos 2020-01-03 2020-01-03 Outpatient DONAVON ELLER, MDA MDA [id number] 00:00:00 00:00:00 LOVE de [place]antos 2020-01-03 2020-01-03 Outpatient DONAVON ALCOCER, MDA MDA [id number] 00:00:00 00:00:00 CHING de [place]antos 2020-01-03 2020-01-03 Outpatient DONAVON ALCOCER, MDA MDA [id number] 00:00:00 00:00:00 CHING de [place] 2020-01-03 2020-01-03 Outpatient DONAVON ALCOCER, MDA MDA [id number] 00:00:00 00:00:00 CHING de [place] 2020-01-02 2020-01-02 Outpatient DONAVON ALCOCER, MDA MDA [id number] 00:00:00 00:00:00 CHING de [place] 2020-01-02 2020-01-02 Outpatient CARLYN, MDA MDA [id number] 00:00:00 00:00:00 CHING de [place] 2019-12-06 2019-12-06 Outpatient VIRGEN JAGDISH MDA MDA [id number] 00:00:00 00:00:00 Sanjeev de [place] 2019-12-05 2019-12-05 Orders Doctor LEAL [id number] 00:00:00 00:00:00 Only Unassigned, RAEGAN [id number] [place] [facility] [id number] 2019-12-02 2019-12-02 Outpatient MDA MDA [id number] 12:57:28 12:57:28 Sanjeev de [place] 2019-12-02 2019-12-02 Outpatient EL VIRGEN JAGDISH MDA MDA [id number] 00:00:00 00:00:00 Sanjeev de [place] 2019-11-25 2019-11-25 Outpatient DONAVON ELLER, MDA MDA [id number] 11:42:51 12:05:57 LOVE de [place] 2019-11-25 2019-11-25 Telephone Fatuma [facility] [id number] 00:00:00 00:00:00 [facility] [id number] Surgical [id number] Specialti [id number] [place] 2019-11-25 2019-11-25 Orders Doctor MEL [id number] 00:00:00 00:00:00 Only Unassigned, RAEGAN [id number] [place] [facility] [id number] 2019-11-11 2019-11-11 Outpatient EL NANCYLARD, MDA MDA [id number] 11:12:27 23:59:00 CHING [place] 2019-11-11 2019-11-11 Outpatient EL EDOUARD, MDA MDA [id number] 09:47:08 12:08:51 LIONEL de [place] 2019-11-11 2019-11-11 Outpatient EL MDA MDA [id number] MD 09:36:53 09:36:53 Sanjeev de [place] 2019-11-11 2019-11-11 Outpatient EL POULLARD, MDA MDA [id number] 00:00:00 00:00:00 CHING de [place] 2019-11-11 2019-11-11 Outpatient EL POULLARD, MDA MDA [id number] 00:00:00 00:00:00 CHING de [place] 2019-11-11 2019-11-11 Outpatient EL SUBBIAH, MDA MDA [id number] 00:00:00 00:00:00 LIONEL de [place] 2019-11-10 2019-11-10 Outpatient EL POULLARD, MDA MDA [id number] 10:55:08 23:59:00 CHING de [place] 2019-11-10 2019-11-10 Outpatient DONAVON ALCOCER MDA MDA [id number] 07:37:58 10:54:00 CHING de [place] 2019-11-10 2019-11-10 Outpatient DONAVON ALCOCER MDA MDA [id number] 09:00:50 09:00:50 CHING de [place] 2019-11-10 2019-11-10 Outpatient DONAVON RAMIREZ MDA MDA [id number] 07:30:00 07:36:00 BRAD de [place] Results This patient has no known results.
[2019-12-09] MEDS ORDERED: HYDROMORPHONE HCL 2 MG/ML inj ONE (11:15)
[2019-12-09] MEDS ORDERED: NA CHLORIDE 0.9% 500 ML ONE (11:15)
[2019-12-09] MEDS ORDERED: ONDANSETRON 4 MG/2 ML VIAL ONE (11:15)
[2019-12-09 12:00] LABS: Absolute Lymphocytes (CBC) 0.7 K/uL (0.7-4.9); Basophils % 0.3 % (0-1.3); Hematocrit 25.9 % (36.0-45.0); MPV 8.8 fL (7.6-11.3); RBC Red Blood Cell Count 2.66 M/uL (3.86-4.86)
[2019-12-09 12:13] LABS: Potassium 3.7 mmol/L (3.5-5.1)
--- NOTE | 2019-12-09 13:05 | EDPHYS ---
Physician Documentation [facility] Name: Sakina Pino Age: 44 yrs Sex: Female : 1975 Arrival Date: 12/09/2019 Time: 10:29 Bed 18 Private MD: ED Physician Michael Amaro HPI: 12/08 12:08 This 44 yrs old Female presents to ER via EMS with complaints of Pain. jr8 12:08 The patient or guardian reports decreased range of motion, pain. Onset: The jr8 symptoms/episode began/occurred acutely, today. Modifying factors: The symptoms are alleviated by nothing, the symptoms are aggravated by any movement. Associated signs and symptoms: Pertinent positives: None. Severity of symptoms: At their worst the symptoms were moderate, in the emergency department the symptoms are unchanged. The patient has experienced similar episodes in the past, a few times. The patient has not recently seen a physician. Patient stated that she has chronic pain due to arachnoiditis. Stated that occasionally she will get severe hip pain on left side with spasms. Has been compliant with medications given by PCP and pain specialist but that pain is not controlled today . Historical: - Allergies: 10:34 Ciprofloxacin; ah 10:34 Compazine; ah 10:34 Imitrex; ah 10:34 Neosporin ([id number]); ah 10:34 PENICILLINS; ah - PMHx: 10:34 arachnoiditis; Chronic pain; Migraines; Sleep Apnea; TMJ; Diabetes - NIDDM; sarcoidosis;ah - PSHx: 10:34 Thyroidectomy; ah - Immunization history:: Adult Immunizations up to date. - Social history:: Smoking status: Patient denies any tobacco usage or history of. ROS: 12:08 Eyes: Negative for injury, pain, redness, and discharge, ENT: Negative for injury, jr8 pain, and discharge, Neck: Negative for injury, pain, and swelling, Cardiovascular: Negative for chest pain, palpitations, and edema, Respiratory: Negative for shortness of breath, cough, wheezing, and pleuritic chest pain, Abdomen/GI: Negative for abdominal pain, nausea, vomiting, diarrhea, and constipation, Back: Negative for injury and pain, Skin: Negative for injury, rash, and discoloration, Neuro: Negative for headache, weakness, numbness, tingling, and seizure. 12:08 MS/extremity: Positive for decreased range of motion, pain, tenderness, of the left leg. Exam: 12:08 Eyes: Pupils equal round and reactive to light, extra-ocular motions intact. Lids and jr8 lashes normal. Conjunctiva and sclera are non-icteric and not injected. Cornea within normal limits. Periorbital areas with no swelling, redness, or edema. ENT: Nares patent. No nasal discharge, no septal abnormalities noted. Tympanic membranes are normal and external auditory canals are clear. Oropharynx with no redness, swelling, or masses, exudates, or evidence of obstruction, uvula midline. Mucous membranes moist. Neck: Trachea midline, no thyromegaly or masses palpated, and no cervical lymphadenopathy. Supple, full range of motion without nuchal rigidity, or vertebral point tenderness. No Meningismus. Cardiovascular: Regular rate and rhythm with a normal S1 and S2. No gallops, murmurs, or rubs. Normal PMI, no JVD. No pulse deficits. Respiratory: Lungs have equal breath sounds bilaterally, clear to auscultation and percussion. No rales, rhonchi or wheezes noted. No increased work of breathing, no retractions or nasal flaring. Abdomen/GI: Soft, non-tender, with normal bowel sounds. No distension or tympany. No guarding or rebound. No evidence of tenderness throughout. Back: No spinal tenderness. No costovertebral tenderness. Full range of motion. Skin: Warm, dry with normal turgor. Normal color with no rashes, no lesions, and no evidence of cellulitis. MS/ Extremity: Pulses equal, no cyanosis. Neurovascular intact. Full, normal range of motion. Pain to palpation of left hip. Painful ROM noted but with full ROM present Neuro: Awake and alert, GCS 15, oriented to person, place, time, and situation. Cranial nerves II-XII grossly intact. Motor strength 5/5 in all extremities. Sensory grossly intact. Cerebellar exam normal. Normal gait. Vital Signs: 10:18 BP 112 / 93; Pulse 84; Resp 22; Temp 97.7; Pulse Ox 100% ; Weight 89.81 kg; Height 5 ah ft. 4 in. (162.56 cm); Pain 10/10; 10:18 Body Mass Index 33.99 (89.81 kg, 162.56 cm) ah MDM: 10:30 Patient medically screened. jr8 12:08 Data reviewed: vital signs, nurses notes, and as a result, I will discharge patient. jr8 Data interpreted: Pulse oximetry: on room air is 100 %. Interpretation: normal. 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 Response to treatment: the patient's symptoms have markedly improved after treatment. 12/08 10:51 Order name: CBC with Diff; Complete Time: 14:03 [facility] 12/08 10:51 Order name: Basic Metabolic Panel; Complete Time: 12:27 [facility] 12/08 13:55 Order name: CBC Smear Scan; Complete Time: 14:03 [facility] 12/08 10:51 Order name: IV; Complete Time: 11:38 [facility] Administered Medications: 11:34 Drug: Zofran (Ondansetron) 4 mg Route: IVP; Site: right wrist; ss 11:38 Drug: Dilaudid 2 mg Route: IVP; Site: right wrist; ss 11:38 Drug: NS 0.9% 500 ml Route: IV; Rate: bolus; Site: right wrist; ss Disposition: 15:44 Co-signature as Attending Physician, Michael Aamro MD I agree with the assessment and kdr plan of care. Disposition: 12/09/19 13:04 Discharged to Home. Impression: Other chronic pain. - Condition is Stable. - Discharge Instructions: Chronic Pain. - Medication Reconciliation Form, Thank You Letter, Antibiotic Education, Prescription Opioid Use form. - Follow up: Private Physician; When: 5 - 6 days; Reason: Recheck today's complaints, Continuance of care, Re-evaluation by your physician. - Problem is new. - Symptoms have improved. Signatures: Dispatcher [employer] Michael Florian MD MD [facility] Helena Jade RN RN Omer Perez, RAI PA jr8 Michelle Leiva RN RN Corrections: (The following items were deleted from the chart) 14:42 13:04 12/09/2019 13:04 Discharged to Home. Impression: Other chronic pain. Condition is ah Stable. Forms are Medication Reconciliation Form, Thank You Letter, Antibiotic Education, Prescription Opioid Use. Follow up: Private Physician; When: 5 - 6 days; Reason: Recheck today's complaints, Continuance of care, Re-evaluation by your physician. Problem is new. Symptoms have improved. jr8
--- NOTE | 2019-12-09 13:05 | ER ---
Nurse's Notes [facility] Name: Sakina Pino Age: 44 yrs Sex: Female : 1975 Arrival Date: 12/09/2019 Time: 10:29 Bed 18 Private MD: Diagnosis: Other chronic pain Presentation: 12/08 10:18 Chief complaint: Patient states: nerve pain on left side of body, especially left hip. ah Feels like shooting pain, constant. 02/24. 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 Coronavirus screen: Patient denies a cough. Patient denies shortness of breath or difficulty breathing. Patient denies measured and/or subjective temperature greater than 100.4F prior to today's visit. Patient denies travel on a cruise ship or to a country the [facility] currently lists as an affected area. Patient denies contact with known and/or suspected case of COVID-19. Proceed with normal triage. Ebola Screen: No symptoms or risks identified at this time. Initial Sepsis Screen: Does the patient meet any 2 criteria? No. Patient's initial sepsis screen is negative. Does the patient have a suspected source of infection? No. Patient's initial sepsis screen is negative. Risk Assessment: Do you want to hurt yourself or someone else? Patient reports no desire to harm self or others. Onset of symptoms was December 09, 2019. 10:18 Method Of Arrival: EMS: [facility] 10:18 Acuity: SHANON 3 ah Historical: - Allergies: 10:34 Ciprofloxacin; 10:34 Compazine; 10:34 Imitrex; 10:34 Neosporin ([id number]); 10:34 PENICILLINS; - PMHx: 10:34 arachnoiditis; Chronic pain; Migraines; Sleep Apnea; TMJ; Diabetes - NIDDM; sarcoidosis; - PSHx: 10:34 Thyroidectomy; - Immunization history:: Adult Immunizations up to date. - Social history:: Smoking status: Patient denies any tobacco usage or history of. Screenin:34 Abuse screen: Denies threats or abuse. Nutritional screening: No deficits noted. Tuberculosis screening: No symptoms or risk factors identified. Fall Risk None identified. Assessment: 10:30 General: Appears distressed, uncomfortable, Behavior is anxious, restless. Pain: Complains of pain in left sided pain, mostly in hip area. Pain: Pain currently is 10 out of 10 on a pain scale. Quality of pain is described as sharp, shooting, piercing, pulsating, Pain began 2 hours ago. Neuro: Level of Consciousness is awake, alert, obeys commands. Cardiovascular: Heart tones S1 S2 present. Respiratory: Airway is patent Respiratory effort is even, unlabored, Respiratory pattern is regular, symmetrical. GI:. Derm: Skin is intact, is healthy with good turgor, Skin is dry. Musculoskeletal: Circulation, motion, and sensation intact. Capillary refill < 3 seconds, Pt states that she has severe nerve pain. 12:56 Reassessment: Pt states that pain is definitely better at this time. Vital Signs: 10:18 BP 112 / 93; Pulse 84; Resp 22; Temp 97.7; Pulse Ox 100% ; Weight 89.81 kg; Height 5 ah ft. 4 in. (162.56 cm); Pain 10/10; 10:18 Body Mass Index 33.99 (89.81 kg, 162.56 cm) ED Course: 10:29 Patient arrived in ED. 10:30 Omer Perez PA is PHCP. jr8 10:30 Michael Amaro MD is Attending Physician. jr8 10:30 Patient has correct armband on for positive identification. Bed in low position. Call light in reach. Side rails up X2. 10:32 Triage completed. 11:03 Michelle Leiva, RN is Primary Nurse. 11:37 Inserted saline lock: 22 gauge in right wrist, using aseptic technique. Blood collected. 14:41 No provider procedures requiring assistance completed. IV discontinued, intact, bleeding controlled, No redness/swelling at site. Pressure dressing applied. Administered Medications: 11:34 Drug: Zofran (Ondansetron) 4 mg Route: IVP; Site: right wrist; ss 11:38 Drug: Dilaudid 2 mg Route: IVP; Site: right wrist; ss 11:38 Drug: NS 0.9% 500 ml Route: IV; Rate: bolus; Site: right wrist; ss Outcome: 13:04 Discharge ordered by . jr8 13:30 Discharged to home via wheelchair. 13:30 Condition: good 13:30 Discharge instructions given to patient, Instructed on discharge instructions, follow up and referral plans. Demonstrated understanding of instructions, follow-up care. 14:42 Patient left the ED. Signatures: Helena Jade, RN RN Omer Perez PA PA jr8 Michelle Leiva RN RN
[2019-12-09 13:54] LABS: Blood Morphology Comment NOT SEEN (NOT SEEN); Platelet Estimate ADEQ; Urine White Blood Cell Casts OK
== END 2019-12-09 14:42 | disposition home or self-care (01) ==
LOC: ER 10:25
DX: G89.29 Other chronic pain (principal); G03.9 Meningitis, unspecified; Z88.0 Allergy status to penicillin; Z88.1 Allergy status to other antibiotic agents; Z88.3 Allergy status to other anti-infective agents; Z88.8 Allergy status to other drugs, medicaments and biological substances
CPT/HCPCS: 85025; 80048; 36415; 96375; 96374; 99284; J1170; J7040; J2405

== ENCOUNTER 2021-08-07 20:28 | Emergency (ER) | payer OTHER ==
--- OUTSIDE RECORDS SUMMARY | 2021-08-07 20:33 | XMS REPORT | Continuity of Care Document ---
:1975 Author Organization [facility] t Address [address] [place] [address] Care Team Providers Name Role Phone HU Primary Care Physician Unavailable SYSTEM, NOT IN Attending Clinician Unavailable Mae AIKEN Attending Clinician Unavailable Paula ZAMORA Attending Clinician Unavailable EDOUARD Attending Clinician Unavailable EPIFANIO Attending Clinician Unavailable Doctor Unassigned, Name Attending Clinician Unavailable Damari DOWD Attending Clinician Unavailable THOPPIL, P Attending Clinician Unavailable FACUNDO Attending Clinician Unavailable CARLYN Attending Clinician Unavailable YANDEL T Attending Clinician Unavailable Salma SELBY Attending Clinician Unavailable DAYSI Attending Clinician Unavailable Maria E GUTIÉRREZ Attending Clinician Unavailable SHADI Attending Clinician Unavailable Natalya MONTE Attending Clinician Unavailable OUSMANE TIRADO Attending Clinician Unavailable Renetta STEWART Attending Clinician Unavailable SHEEBA Attending Clinician Unavailable ED Attending Clinician Unavailable MAGALY Attending Clinician Unavailable DAPHNIE Attending Clinician Unavailable Maria E KESSLER Attending Clinician Unavailable Brian Duran MD Attending Clinician Brian DURAN Attending Clinician Unavailable VIRGEN Attending Clinician Unavailable ASHLEY Attending Clinician Unavailable Salma BURNHAM Attending Clinician Unavailable Salma Pond Attending Clinician FACUNDO Admitting Clinician Unavailable Salma BURNHAM Admitting Clinician Unavailable Payers Payer Name Policy Type Policy Number Effective Date Expiration Date S trey MEDICARE PART A [id number] 2018 AND B 00:00:00 CIGNA O POS [id number] 2014 OPEN ACCESS 00:00:00 [place] [id number] 2017 2018 00:00:00 00:00:00 [employer] MEDICARE [id number] 2021 PPO 00:00:00 Problems Condition Condition Condition Status Onset Resolution Last Treating Co mments Source Name Details Category Date Date Treatment Clinician Date No known No known Disease Unive rs active active ity of problems problems [facility] Allergies, Adverse Reactions, Alerts Allergy Allergy Status Severity Reaction(s) Onset Inactive Treating Comm ents Source Name Type Date Date Clinician Ciproflo Propensi Active Nausea 2019-0 Univer s xacin ty to and/or 4-25 ity of adverse Vomiting 00:00: [place] reaction 00 Medical s Branch Neomycin Propensi Active Itching 2019-0 Unive rs -Bacitra ty to 4-25 ity of mei-Poly adverse 00:00: [place] myxin reaction 00 Medical s Branch Neomycin Propensi Active Itching 2019-0 Unive rs -Bacitra ty to 4-25 ity of mei-Poly adverse 00:00: [place] myxin reaction 00 Medical Branch CIPROFLO DRUG Active N/V 2019-0 Univers XACIN INGREDI 4-25 ity of 00:00: [place] 00 Medical Branch NEOMYCIN DRUG Active ITCHING 2019-0 Univers -BACITRA 4-25 ity of MEI-POLY 00:00: [place] MYXIN 00 Medical Branch PENICILL Drug Active Unknown-Cmnt 2019-0 Un jeannie INS Class 4-25 ity of 00:00: [place] 00 Medical Branch PROCHLOR DRUG Active Other-Cmnt 2019-0 Univ ers PERAZINE INGREDI 4-25 ity of EDISYLAT 00:00: [place] E 00 Medical Branch SUMATRIP DRUG Active Swelling 2019-0 Univer s HOOK INGREDI 4-25 ity of 00:00: [place] 00 Medical Branch Penicill Propensi Active Unknown - 2019-0 Uni vers ins ty to See comments 4-25 ity of adverse 00:00: [place] reaction 00 Medical s Branch Prochlor Propensi Active Other - See 2019-0 U nivers perazine ty to comments 4-25 ity of Edisylat adverse 00:00: [place] e reaction 00 Medical s Branch Sumatrip Propensi Active Swelling 2019-0 Univ ers hook ty to 4-25 ity of adverse 00:00: [place] reaction 00 [facility] NO KNOWN Drug Active Univers ALLERGIE Class ity of S [place] [facility] Social History Social Habit Start Date Stop Date Quantity Comments Source History SDOH University o f Alcohol Std [place] [facility] Drinks Branch History [facility] University o f Alcohol Binge [place] [facility] Branch Exposure to Not sure University of SARS-CoV-2 [place] [facility] (event) Branch History [facility] o f Alcohol Comment [place] [facility] Alcohol intake 2019-12-28 2019-12-28 Lifetime University of 00:00:00 00:00:00 non-drinker [facility] (finding) Branch Tobacco use and 2019-09-21 2019-09-21 Never used Universit y of exposure 00:00:00 00:00:00 [place] [facility] History SDOH 2019-09-21 2019-09-21 1 University o f Alcohol Frequency 00:00:00 00:00:00 [facility] [place] [facility] edical [place] Sex Ass[birth year] At [birth year] Universit y of 00:00:00 00:00:00 [facility] Smoking Status Start Date Stop Date Source Never smoker [facility] Branch Medications Ordered Filled Start Stop Current Ordering Indication Dosage Frequency Signature Comments Components Source Medication Medication Date Date Medication? Clinician (SIG) Name Name levothyroxi 2021-0 Yes 100ug Take 100 U nivers ne 100 mcg 3-07 mcg by ity of tablet 10:04: mouth [place] 36 every Medical morning. Branch pregabalin Yes 100mg Take 100 Un jeannie 100 mg 3-07 mg by ity of capsule 10:04: mouth 3 [place] 06 (three) Medical times Branch daily. cholecalcif 0 Yes 500U Take 500 Un jeannie kayden, 3-07 Units by ity of vitamin D3, 09:35: [place] 25 [place] 10 Medical (1,000 Branch unit) tablet furosemide 2021-0 Yes 20mg Take 20 mg U nivers 20 mg 3-07 by mouth. ity of tablet 09:35: [address] cholecalcif 2021-0 Yes 500U Take 500 Un jeannie kayden, 3-07 Units by ity of vitamin D3, 09:35: [place] m[place] 10 Medical (1,000 Branch unit) tablet furosemide 2021-0 Yes 20mg Take 20 mg U nivers 20 mg 3-07 by mouth. ity of tablet 09:35: [address] furosemide 2020-0 Yes 20mg Take 20 mg U nivers 20 mg 5-06 by mouth. ity of tablet 18:38: [address] furosemide 2020-0 Yes 20mg Take 20 mg U nivers 20 mg 5-06 by mouth. ity of tablet 18:38: [address] furosemide 2020-0 Yes 20mg Take 20 mg U nivers 20 mg 5-06 by mouth. ity of tablet 18:38: [address] furosemide 2020-0 Yes 20mg Take 20 mg U nivers 20 mg 5-06 by mouth. ity of tablet 18:38: [address] furosemide 2020-0 Yes 20mg Take 20 mg U nivers 20 mg 5-06 by mouth. ity of tablet 18:38: [address] furosemide 2020-0 Yes 20mg Take 20 mg U nivers 20 mg 5-06 by mouth. ity of tablet 18:38: [address] furosemide 2020-0 Yes 20mg Take 20 mg U nivers 20 mg 5-06 by mouth. ity of tablet 18:38: [address] furosemide 2020-0 Yes 20mg Take 20 mg U nivers 20 mg 5-06 by mouth. ity of tablet 18:38: [address] furosemide 2020-0 Yes 20mg Take 20 mg U nivers 20 mg 5-06 by mouth. ity of tablet 18:38: [address] furosemide 2020-0 Yes 20mg Take 20 mg U nivers 20 mg 5-06 by mouth. ity of tablet 18:38: [address] furosemide 2020-0 Yes 20mg Take 20 mg U nivers 20 mg 5-06 by mouth. ity of tablet 18:38: [address] furosemide 2020-0 Yes 20mg Take 20 mg U nivers 20 mg 5-06 by mouth. ity of tablet 18:38: [address] furosemide 2020-0 Yes 20mg Take 20 mg U nivers 20 mg 5-06 by mouth. ity of tablet 18:38: [address] furosemide 2020-0 Yes 20mg Take 20 mg U nivers 20 mg 5-06 by mouth. ity of tablet 18:38: [address] furosemide 2020-0 Yes 20mg Take 20 mg U nivers 20 mg 5-06 by mouth. ity of tablet 18:38: [address] furosemide 2020-0 Yes 20mg Take 20 mg U nivers 20 mg 5-06 by mouth. ity of tablet 18:38: [address] furosemide 2020-0 Yes 20mg Take 20 mg U nivers 20 mg 5-06 by mouth. ity of tablet 18:38: [address] furosemide 2020-0 Yes 20mg Take 20 mg U nivers 20 mg 5-06 by mouth. ity of tablet 18:38: [address] furosemide 2020-0 Yes 20mg Take 20 mg U nivers 20 mg 5-06 by mouth. ity of tablet 18:38: [address] cholecalcif 2020-0 Yes 500U Take 500 Un jeannie kayden, 5-06 Units by ity of vitamin D3, 18:38: [place] 12 Medical (1,000 Branch unit) tablet cholecalcif 2020-0 Yes 500U Take 500 Un jeannie kayden, 5-06 Units by ity of vitamin D3, 18:38: [place] m[place] 12 Medical (1,000 Branch unit) tablet cholecalcif 2020-0 Yes 500U Take 500 Un jeannie kay[place], 5-06 Units by ity of vitamin D3, 18:38: [place] mcg 12 Medical (1,000 Branch unit) tablet cholecalcif 2020-0 Yes 500U Take 500 Un jeannie kay[place], 5-06 Units by ity of vitamin D3, 18:38: [place]. [place] mcg 12 Medical (1,000 Branch unit) tablet cholecalcif 2020-0 Yes 500U Take 500 Un jeannie kayden, 5-06 Units by ity of vitamin D3, 18:38: [place]. [place] mcg 12 Medical (1,000 Branch unit) tablet cholecalcif 2020-0 Yes 500U Take 500 Un jeannie [place], 5-06 Units by ity of vitamin D3, 18:38: [place]. [place] mcg 12 Medical (1,000 Branch unit) tablet cholecalcif 2020-0 Yes 500U Take 500 Un jeannie [place], 5-06 Units by ity of vitamin D3, 18:38: [place]. [place] mcg 12 Medical (1,000 Branch unit) tablet cholecalcif 2020-0 Yes 500U Take 500 Un jeannie [place], 5-06 Units by ity of vitamin D3, 18:38: [place]. [place] mcg 12 Medical (1,000 Branch unit) tablet cholecalcif 2020-0 Yes 500U Take 500 Un jeannie [place], 5-06 Units by ity of vitamin D3, 18:38: [place]. [place] mcg 12 Medical (1,000 Branch unit) tablet cholecalcif 2020-0 Yes 500U Take 500 Un jeannie [place], 5-06 Units by ity of vitamin D3, 18:38: [place]. [place] mcg 12 Medical (1,000 Branch unit) tablet cholecalcif 2020-0 Yes 500U Take 500 Un jeannie kay[place], 5-06 Units by ity of vitamin D3, 18:38: [place]. [place] mcg 12 Medical (1,000 Branch unit) tablet cholecalcif 2020-0 Yes 500U Take 500 Un jeannie kayden, 5-06 Units by ity of vitamin D3, 18:38: [place]. [place] mcg 12 Medical (1,000 Branch unit) tablet cholecalcif 2020-0 Yes 500U Take 500 Un jeannie kayden, 5-06 Units by ity of vitamin D3, 18:38: [place]. [place] mcg 12 Medical (1,000 Branch unit) tablet cholecalcif 2020-0 Yes 500U Take 500 Un jeannie kayden, 5-06 Units by ity of vitamin D3, 18:38: [place]. [place] mcg 12 Medical (1,000 Branch unit) tablet cholecalcif 2020-0 Yes 500U Take 500 Un jeannie kayden, 5-06 Units by ity of vitamin D3, 18:38: [place]. [place] mcg 12 Medical (1,000 Branch unit) tablet cholecalcif 2020-0 Yes 500U Take 500 Un jeannie kayden, 5-06 Units by ity of vitamin D3, 18:38: mouth. [place] mcg 12 Medical (1,000 Branch unit) tablet cholecalcif 2020-0 Yes 500U Take 500 Un jeannie kayden, 5-06 Units by ity of vitamin D3, 18:38: [place]. [place] mcg 12 Medical (1,000 Branch unit) tablet cholecalcif 2020-0 Yes 500U Take 500 Un jeannie kayden, 5-06 Units by ity of vitamin D3, 18:38: mouth. [place] mcg 12 Medical (1,000 Branch unit) tablet cholecalcif 2020-0 Yes 500U Take 500 Un jeannie kayden, 5-06 Units by ity of vitamin D3, 18:38: mouth. [place] 25 mcg 12 Medical (1,000 Branch unit) tablet oxyCODONE 5 2020-0 Yes 5mg Take 5 mg U nivers mg 3-23 by mouth. ity of immediate 00:00: [place] release 00 Medical tablet Branch oxyCODONE 5 2020-0 Yes 5mg Take 5 mg U nivers mg 3-23 by mouth. ity of immediate 00:00: [place] release 00 Medical tablet Branch oxyCODONE 5 2020-0 Yes 5mg Take 5 mg U nivers mg 3-23 by mouth. ity of immediate 00:00: [place] release 00 Medical tablet Branch oxyCODONE 5 2020-0 Yes 5mg Take 5 mg U nivers mg 3-23 by mouth. ity of immediate 00:00: [place] release 00 Medical tablet Branch oxyCODONE 5 2020-0 Yes 5mg Take 5 mg U nivers mg 3-23 by mouth. ity of immediate 00:00: [place] release 00 Medical tablet Branch oxyCODONE 5 2020-0 Yes 5mg Take 5 mg U nivers mg 3-23 by mouth. ity of immediate 00:00: [place] release 00 Medical tablet Branch oxyCODONE 5 2020-0 Yes 5mg Take 5 mg U nivers mg 3-23 by mouth. ity of immediate 00:00: [place] release 00 Medical tablet Branch oxyCODONE 5 2020-0 Yes 5mg Take 5 mg U nivers mg 3-23 by mouth. ity of immediate 00:00: [place] release 00 Medical tablet Branch oxyCODONE 5 2020-0 Yes 5mg Take 5 mg U nivers mg 3-23 by mouth. ity of immediate 00:00: [place] release 00 Medical tablet Branch oxyCODONE 5 2020-0 Yes 5mg Take 5 mg U nivers mg 3-23 by mouth. ity of immediate 00:00: [place] release 00 Medical tablet Branch oxyCODONE 5 2020-0 Yes 5mg Take 5 mg U nivers mg 3-23 by mouth. ity of immediate 00:00: [place] release 00 Medical tablet Branch oxyCODONE 5 2020-0 Yes 5mg Take 5 mg U nivers mg 3-23 by mouth. ity of immediate 00:00: release 00 Medical tablet Branch oxyCODONE 5 2020-0 Yes 5mg Take 5 mg U nivers mg 3-23 by mouth. ity of immediate 00:00: 00 Medical tablet Branch oxyCODONE 5 2020-0 Yes 5mg Take 5 mg U nivers mg 3-23 by mouth. ity of immediate 00:00: 00 Medical tablet Branch oxyCODONE 5 2020-0 Yes 5mg Take 5 mg U nivers mg 3-23 by mouth. ity of immediate 00:00: 00 Medical tablet Branch oxyCODONE 5 2020-0 Yes 5mg Take 5 mg U nivers mg 3-23 by mouth. ity of immediate 00:00: Medical tablet Branch oxyCODONE 5 2020-0 Yes 5mg Take 5 mg U nivers mg 3-23 by mouth. ity of immediate 00:00: Medical tablet Branch oxyCODONE 5 2020-0 Yes 5mg Take 5 mg U nivers mg 3-23 by mouth. ity of immediate 00:00: Medical tablet Branch oxyCODONE 5 2020-0 Yes 5mg Take 5 mg U nivers mg 3-23 by mouth. ity of immediate 00:00: Medical tablet Branch oxyCODONE 5 2020-0 Yes 5mg Take 5 mg U nivers mg 3-23 by mouth. ity of immediate 00:00: Medical tablet Branch oxyCODONE 5 2020-0 Yes 5mg Take 5 mg U nivers mg 3-23 by mouth. ity of immediate 00:00: Medical tablet Branch amitriptyli 2020-0 Yes Univer s ne 100 mg 3-19 ity of tablet 00:00: Medical Branch amitriptyli 2020-0 Yes Univer s ne 100 mg 3-19 ity of tablet 00:00: Medical Branch amitriptyli 2020-0 Yes Univer s ne 100 mg 3-19 ity of tablet 00:00: Medical Branch amitriptyli 2020-0 Yes Univer s ne 100 mg 3-19 ity of tablet 00:00: Medical Branch amitriptyli 2020-0 Yes Univer s ne 100 mg 3-19 ity of tablet 00:00: [place] 00 Medical Branch amitriptyli 2020-0 Yes Univer s ne 100 mg 3-19 ity of tablet 00:00: [place] 00 Medical Branch amitriptyli 2020-0 Yes Univer s ne 100 mg 3-19 ity of tablet 00:00: [place] 00 Medical Branch amitriptyli 2020-0 Yes Univer s ne 100 mg 3-19 ity of tablet 00:00: [place] 00 Medical Branch amitriptyli 2020-0 Yes Univer s ne 100 mg 3-19 ity of tablet 00:00: [place] [address] Medical Branch amitriptyli 2020-0 Yes Univer s ne 100 mg 3-19 ity of tablet 00:00: [place] [address] Medical Branch amitriptyli 2020-0 Yes Univer s ne 100 mg 3-19 ity of tablet 00:00: [place] [address] Medical Branch amitriptyli 2020-0 Yes Univer s ne 100 mg 3-19 ity of tablet 00:00: [place] [address] Medical Branch amitriptyli 2020-0 Yes Univer s ne 100 mg 3-19 ity of tablet 00:00: [place] [address] Medical Branch amitriptyli 2020-0 Yes Univer s ne 100 mg 3-19 ity of tablet 00:00: [place] [address] Medical Branch amitriptyli 2020-0 Yes Univer s ne 100 mg 3-19 ity of tablet 00:00: [place] [address] Medical Branch amitriptyli 2020-0 Yes Univer s ne 100 mg 3-19 ity of tablet 00:00: [place] [address] Medical Branch amitriptyli 2020-0 Yes Univer s ne 100 mg 3-19 ity of tablet 00:00: [place] [address] Medical Branch amitriptyli 2020-0 Yes Univer s ne 100 mg 3-19 ity of tablet 00:00: [place] [address] Medical Branch amitriptyli 2020-0 Yes Univer s ne 100 mg 3-19 ity of tablet 00:00: [place] 00 Medical Branch amitriptyli 2020-0 Yes Univer s ne 100 mg 3-19 ity of tablet 00:00: [place] [address] Medical Branch amitriptyli 2020-0 Yes Univer s ne 100 mg 3-19 ity of tablet 00:00: [place] [address] Medical Branch ondansetron 2020-0 Yes 8mg Take 8 mg U nivers 8 mg tablet 2-20 by mouth. ity of 00:00: Medical Branch ondansetron 2020-0 Yes 8mg Take 8 mg U nivers 8 mg tablet 2-20 by mouth. ity of 00:00: Medical Branch ondansetron 2020-0 Yes 8mg Take 8 mg U nivers 8 mg tablet 2-20 by mouth. ity of 00:00: Medical Branch ondansetron 2020-0 Yes 8mg Take 8 mg U nivers 8 mg tablet 2-20 by mouth. ity of 00:00: Medical Branch ondansetron 2020-0 Yes 8mg Take 8 mg U nivers 8 mg tablet 2-20 by mouth. ity of 00:00: Medical Branch ondansetron 2020-0 Yes 8mg Take 8 mg U nivers 8 mg tablet 2-20 by mouth. ity of 00:00: Medical Branch ondansetron 2020-0 Yes 8mg Take 8 mg U nivers 8 mg tablet 2-20 by mouth. ity of 00:00: Medical Branch ondansetron 2020-0 Yes 8mg Take 8 mg U nivers 8 mg tablet 2-20 by mouth. ity of 00:00: Medical Branch ondansetron 2020-0 Yes 8mg Take 8 mg U nivers 8 mg tablet 2-20 by mouth. ity of 00:00: Medical Branch ondansetron 2020-0 Yes 8mg Take 8 mg U nivers 8 mg tablet 2-20 by mouth. ity of 00:00: Medical Branch ondansetron 2020-0 Yes 8mg Take 8 mg U nivers 8 mg tablet 2-20 by mouth. ity of 00:00: Medical Branch ondansetron 2020-0 Yes 8mg Take 8 mg U nivers 8 mg tablet 2-20 by mouth. ity of 00:00: Medical Branch ondansetron 2020-0 Yes 8mg Take 8 mg U nivers 8 mg tablet 2-20 by mouth. ity of 00:00: Medical Branch ondansetron 2020-0 Yes 8mg Take 8 mg U nivers 8 mg tablet 2-20 by mouth. ity of 00:00: Medical Branch ondansetron 2020-0 Yes 8mg Take 8 mg U nivers 8 mg tablet 2-20 by mouth. ity of 00:00: [place] [facility] ondansetron 2020-0 Yes 8mg Take 8 mg U nivers 8 mg tablet 2-20 by mouth. ity of 00:00: [place] [facility] ondansetron 2020-0 Yes 8mg Take 8 mg U nivers 8 mg tablet 2-20 by mouth. ity of 00:00: [place] [facility] ondansetron 2020-0 Yes 8mg Take 8 mg U nivers 8 mg tablet 2-20 by mouth. ity of 00:00: [place] [facility] ondansetron 2020-0 Yes 8mg Take 8 mg U nivers 8 mg tablet 2-20 by mouth. ity of 00:00: [place] [facility] ondansetron 2020-0 Yes 8mg Take 8 mg U nivers 8 mg tablet 2-20 by mouth. ity of 00:00: [place] [facility] ondansetron 2020-0 Yes 8mg Take 8 mg U nivers 8 mg tablet 2-20 by mouth. ity of 00:00: [place] [address] Medical Branch levothyroxi 2020-0 Yes 150ug Take 150 U nivers ne 150 mcg 2-14 mcg by ity of tablet 00:00: mouth. [place] [address] Medical Branch levothyroxi 2020-0 Yes 150ug Take 150 U nivers ne 150 mcg 2-14 mcg by ity of tablet 00:00: mouth. [address] Branch levothyroxi 2020-0 Yes 150ug Take 150 U nivers ne 150 mcg 2-14 mcg by ity of tablet 00:00: mouth. [place] [address] Medical Branch levothyroxi 2020-0 Yes 150ug Take 150 U nivers ne 150 mcg 2-14 mcg by ity of tablet 00:00: mouth. [place] [address] Medical Branch levothyroxi 2020-0 Yes 150ug Take 150 U nivers ne 150 mcg 2-14 mcg by ity of tablet 00:00: mouth. [address] Branch levothyroxi 2020-0 Yes 150ug Take 150 U nivers ne 150 mcg 2-14 mcg by ity of tablet 00:00: mouth. [address] levothyroxi 2020-0 Yes 150ug Take 150 U nivers ne 150 mcg 2-14 mcg by ity of tablet 00:00: mouth. [place] 00 Medical Branch levothyroxi 2020-0 Yes 150ug Take 150 U nivers ne 150 mcg 2-14 mcg by ity of tablet 00:00: mouth. [place] [facility] levothyroxi 2020-0 Yes 150ug Take 150 U nivers ne 150 mcg 2-14 mcg by ity of tablet 00:00: mouth. [place] [facility] levothyroxi 2020-0 Yes 150ug Take 150 U nivers ne 150 mcg 2-14 mcg by ity of tablet 00:00: mouth. [place] [address] Medical Branch levothyroxi 2020-0 Yes 150ug Take 150 U nivers ne 150 mcg 2-14 mcg by ity of tablet 00:00: mouth. [place] [address] Medical Branch levothyroxi 2020-0 Yes 150ug Take 150 U nivers ne 150 mcg 2-14 mcg by ity of tablet 00:00: mouth. [place] [address] Medical Branch levothyroxi 2020-0 Yes 150ug Take 150 U nivers ne 150 mcg 2-14 mcg by ity of tablet 00:00: mouth. [place] [address] Medical Branch levothyroxi 2020-0 Yes 150ug Take 150 U nivers ne 150 mcg 2-14 mcg by ity of tablet 00:00: mouth. [place] [address] Medical Branch levothyroxi 2020-0 Yes 150ug Take 150 U nivers ne 150 mcg 2-14 mcg by ity of tablet 00:00: mouth. [place] [address] Medical Branch levothyroxi 2020-0 Yes 150ug Take 150 U nivers ne 150 mcg 2-14 mcg by ity of tablet 00:00: mouth. [place] [address] Medical Branch levothyroxi 2020-0 Yes 150ug Take 150 U nivers ne 150 mcg 2-14 mcg by ity of tablet 00:00: mouth. [place] [address] Medical Branch levothyroxi 2020-0 Yes 150ug Take 150 U nivers ne 150 mcg 2-14 mcg by ity of tablet 00:00: mouth. [place] [address] Medical Branch levothyroxi 2020-0 Yes 150ug Take 150 U nivers ne 150 mcg 2-14 mcg by ity of tablet 00:00: mouth. [place] [address] Medical Branch sevelamer 2020-0 Yes 800mg Take 800 Uni vers 800 mg 1-16 mg by ity of tablet 00:00: mouth. [place] [address] Medical Branch sevelamer 2020-0 Yes 800mg Take 800 Uni vers 800 mg 1-16 mg by ity of tablet 00:00: mouth. [place] [facility] sevelamer 2020-0 Yes 800mg Take 800 Uni vers 800 mg 1-16 mg by ity of tablet 00:00: mouth. [place] [facility] sevelamer 2020-0 Yes 800mg Take 800 Uni vers 800 mg 1-16 mg by ity of tablet 00:00: mouth. [place] [facility] sevelamer 2020-0 Yes 800mg Take 800 Uni vers 800 mg 1-16 mg by ity of tablet 00:00: mouth. [place] [facility] sevelamer 2020-0 Yes 800mg Take 800 Uni vers 800 mg 1-16 mg by ity of tablet 00:00: mouth. [place] [facility] sevelamer 2020-0 Yes 800mg Take 800 Uni vers 800 mg 1-16 mg by ity of tablet 00:00: mouth. [place] [facility] sevelamer 2020-0 Yes 800mg Take 800 Uni vers 800 mg 1-16 mg by ity of tablet 00:00: mouth. [place] [facility] sevelamer 2020-0 Yes 800mg Take 800 Uni vers 800 mg 1-16 mg by ity of tablet 00:00: mouth. [place] [facility] sevelamer 2020-0 Yes 800mg Take 800 Uni vers 800 mg 1-16 mg by ity of tablet 00:00: mouth. [place] [facility] sevelamer 2020-0 Yes 800mg Take 800 Uni vers 800 mg 1-16 mg by ity of tablet 00:00: mouth. [place] [facility] sevelamer 2020-0 Yes 800mg Take 800 Uni vers 800 mg 1-16 mg by ity of tablet 00:00: mouth. [place] [facility] sevelamer 2020-0 Yes 800mg Take 800 Uni vers 800 mg 1-16 mg by ity of tablet 00:00: mouth. [place] [facility] sevelamer 2020-0 Yes 800mg Take 800 Uni vers 800 mg 1-16 mg by ity of tablet 00:00: mouth. [place] [facility] sevelamer 2020-0 Yes 800mg Take 800 Uni vers 800 mg 1-16 mg by ity of tablet 00:00: mouth. [place] [facility] sevelamer 2020-0 Yes 800mg Take 800 Uni vers 800 mg 1-16 mg by ity of tablet 00:00: mouth. [place] [facility] sevelamer 2020-0 Yes 800mg Take 800 Uni vers 800 mg 1-16 mg by ity of tablet 00:00: mouth. [address] sevelamer 2020-0 Yes 800mg Take 800 Uni vers 800 mg 1-16 mg by ity of tablet 00:00: mouth. [place] [facility] sevelamer 2020-0 Yes 800mg Take 800 Uni vers 800 mg 1-16 mg by ity of tablet 00:00: mouth. [address] QUEtiapine 2019-0 Yes 300mg Take 300 Un jeannie 300 mg 7-13 mg by ity of tablet 00:00: mouth. [address] QUEtiapine 2019-0 Yes 300mg Take 300 Un jeannie 300 mg 7-13 mg by ity of tablet 00:00: mouth. [address] QUEtiapine 2019-0 Yes 300mg Take 300 Un jeannie 300 mg 7-13 mg by ity of tablet 00:00: mouth. [address] QUEtiapine 2019-0 Yes 300mg Take 300 Un jeannie 300 mg 7-13 mg by ity of tablet 00:00: mouth. [address] QUEtiapine 2019-0 Yes 300mg Take 300 Un jeannie 300 mg 7-13 mg by ity of tablet 00:00: mouth. [address] QUEtiapine 2019-0 Yes 300mg Take 300 Un jeannie 300 mg 7-13 mg by ity of tablet 00:00: mouth. [address] QUEtiapine 2019-0 Yes 300mg Take 300 Un jeannie 300 mg 7-13 mg by ity of tablet 00:00: mouth. [address] QUEtiapine 2019-0 Yes 300mg Take 300 Un jeannie 300 mg 7-13 mg by ity of tablet 00:00: mouth. [address] QUEtiapine 2019-0 Yes 300mg Take 300 Un jeannie 300 mg 7-13 mg by ity of tablet 00:00: mouth. [address] QUEtiapine 2019-0 Yes 300mg Take 300 Un jeannie 300 mg 7-13 mg by ity of tablet 00:00: mouth. [address] QUEtiapine 2019-0 Yes 300mg Take 300 Un jeannie 300 mg 7-13 mg by ity of tablet 00:00: mouth. [address] QUEtiapine 2019-0 Yes 300mg Take 300 Un jeannie 300 mg 7-13 mg by ity of tablet 00:00: mouth. [address] QUEtiapine 2019-0 Yes 300mg Take 300 Un jeannie 300 mg 7-13 mg by ity of tablet 00:00: mouth. [address] QUEtiapine 2019-0 Yes 300mg Take 300 Un jeannie 300 mg 7-13 mg by ity of tablet 00:00: mouth. [address] QUEtiapine 2019-0 Yes 300mg Take 300 Un jeannie 300 mg 7-13 mg by ity of tablet 00:00: mouth. [address] QUEtiapine 2019-0 Yes 300mg Take 300 Un jeannie 300 mg 7-13 mg by ity of tablet 00:00: mouth. [address] QUEtiapine 2019-0 Yes 300mg Take 300 Un jeannie 300 mg 7-13 mg by ity of tablet 00:00: mouth. [address] QUEtiapine 2019-0 Yes 300mg Take 300 Un jeannie 300 mg 7-13 mg by ity of tablet 00:00: mouth. [address] QUEtiapine 2019-0 Yes 300mg Take 300 Un jeannie 300 mg 7-13 mg by ity of tablet 00:00: mouth. [address] QUEtiapine 2019-0 Yes 300mg Take 300 Un jeannie 300 mg 7-13 mg by ity of tablet 00:00: mouth. [address] QUEtiapine 2019-0 Yes 300mg Take 300 Un jeannie 300 mg 7-13 mg by ity of tablet 00:00: mouth. [address] empaglifloz 2019-0 Yes 25mg Take 25 mg Univers in 4-24 by mouth. ity of ([place]) 00:00: [place] 25 mg Tab 00 [facility] empaglifloz 2019-0 Yes 25mg Take 25 mg Univers in 4-24 by mouth. ity of ([place]) 00:00: [place] 25 mg Tab 00 [facility] empaglifloz 2019-0 Yes 25mg Take 25 mg Univers in 4-24 by mouth. ity of ([place]) 00:00: [place] 25 mg Tab 00 [facility] empaglifloz 2019-0 Yes 25mg Take 25 mg Univers in 4-24 by mouth. ity of ([place]) 00:00: [place] 25 mg Tab 00 [facility] empaglifloz 2019-0 Yes 25mg Take 25 mg Univers in 4-24 by mouth. ity of ([place]) 00:00: [place] 25 mg Tab 00 [facility] empaglifloz 2019-0 Yes 25mg Take 25 mg Univers in 4-24 by mouth. ity of ([place]) 00:00: [place] 25 mg Tab 00 [facility] empaglifloz 2019-0 Yes 25mg Take 25 mg Univers in 4-24 by mouth. ity of ([place]) 00:00: [place] 25 mg Tab 00 [facility] empaglifloz 2019-0 Yes 25mg Take 25 mg Univers in 4-24 by mouth. ity of ([place]) 00:00: [place] 25 mg Tab 00 [facility] empaglifloz 2019-0 Yes 25mg Take 25 mg Univers in 4-24 by mouth. ity of ([place]) 00:00: [place] 25 mg Tab 00 [facility] empaglifloz 2019-0 Yes 25mg Take 25 mg Univers in 4-24 by mouth. ity of ([place]) 00:00: [place] 25 mg Tab 00 [facility] empaglifloz 2019-0 Yes 25mg Take 25 mg Univers in 4-24 by mouth. ity of ([place]) 00:00: [place] 25 mg Tab 00 [facility] empaglifloz 2019-0 Yes 25mg Take 25 mg Univers in 4-24 by mouth. ity of ([place]) 00:00: [place] 25 mg Tab 00 [facility] empaglifloz 2019-0 Yes 25mg Take 25 mg Univers in 4-24 by mouth. ity of ([place]) 00:00: [place] 25 mg Tab 00 [facility] empaglifloz 2019-0 Yes 25mg Take 25 mg Univers in 4-24 by mouth. ity of ([place]) 00:00: [place] 25 mg Tab 00 [facility] empaglifloz 2019-0 Yes 25mg Take 25 mg Univers in 4-24 by mouth. ity of ([place]) 00:00: [place] 25 mg Tab 00 [facility] empaglifloz 2019-0 Yes 25mg Take 25 mg Univers in 4-24 by mouth. ity of ([place]) 00:00: [place] 25 mg Tab 00 [facility] empaglifloz 2019-0 Yes 25mg Take 25 mg Univers in 4-24 by mouth. ity of ([place]) 00:00: [place] 25 mg Tab 00 Medical [facility] empaglifloz 2019-0 Yes 25mg Take 25 mg Univers in 4-24 by mouth. ity of ([place]) 00:00: [place] 25 mg Tab 00 [facility] empaglifloz 2019-0 Yes 25mg Take 25 mg Univers in 4-24 by mouth. ity of ([place]) 00:00: [place] 25 mg Tab 00 [facility] pioglmarcelazon 2019-0 Yes 30mg Take 30 mg Univers e 30 mg 4-16 by mouth. ity of tablet 00:00: [place] [facility] pioglmarcelazon 2019-0 Yes 30mg Take 30 mg Univers e 30 mg 4-16 by mouth. ity of tablet 00:00: [place] [facility] pioglmarcelazon 2019-0 Yes 30mg Take 30 mg Univers e 30 mg 4-16 by mouth. ity of tablet 00:00: [place] [facility] pioglmarcelazon 2019-0 Yes 30mg Take 30 mg Univers e 30 mg 4-16 by mouth. ity of tablet 00:00: [place] [facility] pioglmarcelazon 2019-0 Yes 30mg Take 30 mg Univers e 30 mg 4-16 by mouth. ity of tablet 00:00: [place] [facility] pioglitazon 2019-0 Yes 30mg Take 30 mg Univers e 30 mg 4-16 by mouth. ity of tablet 00:00: [place] [facility] pioglitazon 2019-0 Yes 30mg Take 30 mg Univers e 30 mg 4-16 by mouth. ity of tablet 00:00: [place] [facility] pioglmarcelazon 2019-0 Yes 30mg Take 30 mg Univers e 30 mg 4-16 by mouth. ity of tablet 00:00: [place] [facility] pioglitazon 2019-0 Yes 30mg Take 30 mg Univers e 30 mg 4-16 by mouth. ity of tablet 00:00: [place] [facility] pioglitazon 2019-0 Yes 30mg Take 30 mg Univers e 30 mg 4-16 by mouth. ity of tablet 00:00: [place] [facility] pioglitazon 2019-0 Yes 30mg Take 30 mg Univers e 30 mg 4-16 by mouth. ity of tablet 00:00: [place] [facility] pioglitazon 2019-0 Yes 30mg Take 30 mg Univers e 30 mg 4-16 by mouth. ity of tablet 00:00: [place] [facility] pioglitazon 2019-0 Yes 30mg Take 30 mg Univers e 30 mg 4-16 by mouth. ity of tablet 00:00: [place] [facility] pioglitazon 2019-0 Yes 30mg Take 30 mg Univers e 30 mg 4-16 by mouth. ity of tablet 00:00: [place] [facility] pioglitazon 2019-0 Yes 30mg Take 30 mg Univers e 30 mg 4-16 by mouth. ity of tablet 00:00: [place] [facility] pioglitazon 2019-0 Yes 30mg Take 30 mg Univers e 30 mg 4-16 by mouth. ity of tablet 00:00: [place] [facility] pioglitazon 2019-0 Yes 30mg Take 30 mg Univers e 30 mg 4-16 by mouth. ity of tablet 00:00: [place] [facility] pioglitazon 2019-0 Yes 30mg Take 30 mg Univers e 30 mg 4-16 by mouth. ity of tablet 00:00: [address] pioglitazon 2019-0 Yes 30mg Take 30 mg Univers e 30 mg 4-16 by mouth. ity of tablet 00:00: [address] lamoTRIgine 2019-0 Yes 100mg Take 100 U nivers 100 mg 4-09 mg by ity of tablet 00:00: mouth. [address] lamoTRIgine 2019-0 Yes 100mg Take 100 U nivers 100 mg 4-09 mg by ity of tablet 00:00: mouth. [address] lamoTRIgine 2019-0 Yes 100mg Take 100 U nivers 100 mg 4-09 mg by ity of tablet 00:00: mouth. [address] lamoTRIgine 2019-0 Yes 100mg Take 100 U nivers 100 mg 4-09 mg by ity of tablet 00:00: mouth. [address] lamoTRIgine 2019-0 Yes 100mg Take 100 U nivers 100 mg 4-09 mg by ity of tablet 00:00: mouth. [address] lamoTRIgine 2019-0 Yes 100mg Take 100 U nivers 100 mg 4-09 mg by ity of tablet 00:00: mouth. [address] lamoTRIgine 2019-0 Yes 100mg Take 100 U nivers 100 mg 4-09 mg by ity of tablet 00:00: mouth. [place] [facility] lamoTRIgine 2019-0 Yes 100mg Take 100 U nivers 100 mg 4-09 mg by ity of tablet 00:00: mouth. [place] [facility] lamoTRIgine 2019-0 Yes 100mg Take 100 U nivers 100 mg 4-09 mg by ity of tablet 00:00: mouth. [place] [facility] lamoTRIgine 2019-0 Yes 100mg Take 100 U nivers 100 mg 4-09 mg by ity of tablet 00:00: mouth. [place] [facility] lamoTRIgine 2019-0 Yes 100mg Take 100 U nivers 100 mg 4-09 mg by ity of tablet 00:00: mouth. [place] [facility] lamoTRIgine 2019-0 Yes 100mg Take 100 U nivers 100 mg 4-09 mg by ity of tablet 00:00: mouth. [place] [facility] lamoTRIgine 2019-0 Yes 100mg Take 100 U nivers 100 mg 4-09 mg by ity of tablet 00:00: mouth. [place] [facility] lamoTRIgine 2019-0 Yes 100mg Take 100 U nivers 100 mg 4-09 mg by ity of tablet 00:00: mouth. [place] [facility] lamoTRIgine 2019-0 Yes 100mg Take 100 U nivers 100 mg 4-09 mg by ity of tablet 00:00: mouth. [place] [facility] lamoTRIgine 2019-0 Yes 100mg Take 100 U nivers 100 mg 4-09 mg by ity of tablet 00:00: mouth. [place] [facility] lamoTRIgine 2019-0 Yes 100mg Take 100 U nivers 100 mg 4-09 mg by ity of tablet 00:00: mouth. [place] [facility] lamoTRIgine 2019-0 Yes 100mg Take 100 U nivers 100 mg 4-09 mg by ity of tablet 00:00: mouth. [place] [facility] lamoTRIgine 2019-0 Yes 100mg Take 100 U nivers 100 mg 4-09 mg by ity of tablet 00:00: mouth. [address] Branch lamoTRIgine 2019-0 Yes 100mg Take 100 U nivers 100 mg 4-09 mg by ity of tablet 00:00: mouth. [address] Branch lamoTRIgine 2019-0 Yes 100mg Take 100 U nivers 100 mg 4-09 mg by ity of tablet 00:00: mouth. [facility] baclofen 10 Yes 10mg Take 10 mg Univers mg tablet 4-01 by mouth. ity o f 00:00: [facility] baclofen 10 Yes 10mg Take 10 mg Univers mg tablet 4-01 by mouth. ity o f 00:00: [facility] baclofen 10 Yes 10mg Take 10 mg Univers mg tablet 4-01 by mouth. ity o f 00:00: [facility] baclofen 10 Yes 10mg Take 10 mg Univers mg tablet 4-01 by mouth. ity o f 00:00: [facility] baclofen 10 Yes 10mg Take 10 mg Univers mg tablet 4-01 by mouth. ity o f 00:00: [facility] baclofen 10 Yes 10mg Take 10 mg Univers mg tablet 4-01 by mouth. ity o f 00:00: [facility] baclofen 10 Yes 10mg Take 10 mg Univers mg tablet 4-01 by mouth. ity o f 00:00: [facility] baclofen 10 Yes 10mg Take 10 mg Univers mg tablet 4-01 by mouth. ity o f 00:00: [facility] baclofen 10 Yes 10mg Take 10 mg Univers mg tablet 4-01 by mouth. ity o f 00:00: [facility] baclofen 10 Yes 10mg Take 10 mg Univers mg tablet 4-01 by mouth. ity o f 00:00: [facility] baclofen 10 Yes 10mg Take 10 mg Univers mg tablet 4-01 by mouth. ity o f 00:00: [facility] baclofen 10 Yes 10mg Take 10 mg Univers mg tablet 4-01 by mouth. ity o f 00:00: [facility] baclofen 10 Yes 10mg Take 10 mg Univers mg tablet 4-01 by mouth. ity o f 00:00: [facility] baclofen 10 Yes 10mg Take 10 mg Univers mg tablet 4-01 by mouth. ity o f 00:00: [facility] baclofen 10 Yes 10mg Take 10 mg Univers mg tablet 4-01 by mouth. ity o f 00:00: [facility] baclofen 10 Yes 10mg Take 10 mg Univers mg tablet 4- by mouth. ity o f 00:00: [facility] baclofen 10 Yes 10mg Take 10 mg Univers mg tablet 4- by mouth. ity o f 00:00: [facility] baclofen 10 Yes 10mg Take 10 mg Univers mg tablet 4- by mouth. ity o f 00:00: [facility] baclofen 10 Yes 10mg Take 10 mg Univers mg tablet 4- by mouth. ity o f 00:00: [facility] baclofen 10 Yes 10mg Take 10 mg Univers mg tablet 4- by mouth. ity o f 00:00: [facility] baclofen 10 Yes 10mg Take 10 mg Univers mg tablet 4- by mouth. ity o f 00:00: [facility] Vital Signs Vital Name Observation Time Observation Value Comments Source HEIGHT 2020-10-05 12:12:55 163.8 cm WEIGHT 2020-10-05 12:12:55 88.3 kg WEIGHT 2020-09-18 08:40:38 87.9 kg HEIGHT 2020-09-04 10:47:16 163.8 cm WEIGHT 2020-09-04 10:47:16 88 kg HEIGHT 2020-05-15 10:52:00 163.8 cm WEIGHT 2020-05-15 10:52:00 90.9 kg WEIGHT 2020-03-13 13:22:13 90.6 kg HEIGHT 2020-01-17 10:08:04 163.8 cm WEIGHT 2020-01-17 10:08:04 86.3 kg WEIGHT 2020-01-03 16:00:50 89.1 kg HEIGHT 2020-01-03 11:28:40 163.8 cm WEIGHT 2020-01-03 11:28:40 89.1 kg Systolic blood 2019-12-28 20:45:00 121 mm[Hg] Univer [facility] pressure Medical Branch Diastolic blood 2019-12-28 20:45:00 74 mm[Hg] [facility] Heart rate 2019-12-28 20:45:00 93 /min [facility] Body height 2019-12-28 20:45:00 162.6 cm [facility] [place] [facility] Body weight 2019-12-28 20:45:00 86.183 kg stated [facility] [place] [facility] BMI 2019-12-28 20:45:00 32.61 kg/m2 [facility] [place] [facility] HEIGHT 2019-11-11 00:00:00 163.8 cm WEIGHT 2019-11-11 00:00:00 90.85 kg Systolic blood 2019-09-21 18:23:00 110 mm[Hg] [facility] [place] pressure [facility] Diastolic blood 2019-09-21 18:23:00 74 mm[Hg] [facility] [place] pressure Medical [facility] Heart rate 2019-09-21 18:23:00 83 /min Universi ty of [facility] Body height 2019-09-21 18:23:00 163.8 cm [facility] [place] [facility] Body weight 2019-09-21 18:23:00 83.915 kg [facility] [place] [facility] BMI 2019-09-21 18:23:00 31.26 kg/m2 Universi ty of [facility] Branch Procedures Procedure Date / Time Performed Performing Clinician Sourc e EXTERNAL PROVIDER 2021-08-01 05:01:00 Doctor Unassigned, No [facility] [place] RECORDS Name Medical Branch REFERRAL- 2021-06-27 06:01:00 Doctor Unassigned, No [facility] [place] REQUEST/RESPONSE Name Medical Branch REFERRAL- 2020-01-18 05:01:00 Doctor Unassigned, No [facility] [place] REQUEST/RESPONSE Name Medical Branch EXTERNAL PROVIDER 2020-01-05 05:01:00 Doctor Unassigned, No [facility] [place] RECORDS Name Medical Branch REFERRAL- 2019-12-05 05:01:00 Doctor Unassigned, No [facility] [place] REQUEST/RESPONSE Name Medical Branch REFERRAL- 2019-11-25 05:01:00 Doctor Unassigned, No [facility] [place] REQUEST/RESPONSE Name Medical Branch XR KUB 2019-10-11 17:10:03 Luz Burnham [facility] [place] [facility] o f [facility] Branch ASSIGNMENT OF BENEFITS 2019-10-11 16:07:26 Doctor Unassigned, No [facility] [place] Name [facility] REFERRAL- 2019-09-26 05:01:00 Doctor Unassigned, No [facility] [place] REQUEST/RESPONSE Name [facility] Encounters Start End Encounter Admission Attending Care Care Encounter Source Date/Time Date/Time Type Type Clinicians Facility Department ID 2021-07-19 Outpatient SYSTEM, MDA MDA [id number] 13:53:04 PROVIDER Sanjeev o n 2021-05-15 Outpatient SYSTEM, MDA MDA [id number] MD 11:48:46 PROVIDER Sanjeev o n 2021-03-26 Outpatient SYSTEM, MDA MDA [id number] MD 11:47:42 PROVIDER Sanjeev o n 2020-08-08 Outpatient SYSTEM, MDA MDA [id number] 15:06:40 PROVIDER Sanjeev o n 2020-05-18 Outpatient SYSTEM, MDA MDA [id number] MD 08:24:36 PROVIDER Sanjeev o n 2020-04-11 Outpatient SYSTEM, MDA MDA [id number] MD 16:24:24 PROVIDER Sanjeev o n 2020-02-24 Outpatient SYSTEM, MDA MDA [id number] 12:05:44 PROVIDER Sanjeev o n 2019-12-22 Outpatient SYSTEM, MDA MDA [id number] 08:16:25 PROVIDER Sanjeev o n 2019-11-30 Outpatient AIKEN, MDA MDA [id number] 09:01:19 MARTY Anderso n 2019-11-25 Outpatient ESHARETURI, MDA MDA [id number] 15:17:20 ERA Anderso n 2019-11-22 Outpatient SUBBIAH, MDA MDA [id number] MD 17:22:41 LIONEL Anderso n 2019-11-16 Outpatient SYSTEM, MDA MDA [id number] 10:33:19 PROVIDER Sanjeev o n 2019-11-11 Outpatient MDA MDA [id number] 11:56:21 Anderso n 2021-10-28 2021-10-28 Outpatient Anai GODFREY, [facility] [id number] Univers 09:00:00 09:00:00 ROSA ELENA [id number] ity of [facility] 2021-08-01 2021-08-01 Orders Doctor LEAL [id number] Univers 00:00:00 00:00:00 Only Unassigned, RAEGAN [id number] ity of [place] [facility] [id number] Nahid as [phone] [address] 2021-07-22 2021-07-22 Outpatient R EPIFANIO, [facility] [id number] Univers 09:00:00 10:12:34 ROSA ELENA ity [facility] 2021-07-22 2021-07-22 Outpatient R EPIFANIO, [facility] [id number] Univers 09:00:00 09:00:00 ROSA ELENA [id number] ity [facility] 2021-07-16 2021-07-16 Outpatient R [facility] [id number] Univers 11:15:00 11:15:00 [id number] ity [facility] 2021-06-26 2021-06-27 Outpatient UR DOWD, [facility] [id number] 07:31:00 16:58:00 BRIGHT [place] 2021-06-27 2021-06-27 Orders Doctor MEL [id number] Univers 00:00:00 00:00:00 Only Unassigned, RAEGAN [id number] [facility] [id number] Nahid as [phone] [address] 2021-06-26 2021-06-26 Outpatient EL SRINIVASL, MDA MDA [id number] 15:43:41 16:03:28 DORIS [place] 2021-06-26 2021-06-26 Emergency EL FACUNDO, MDA MDA [id number] 11:12:46 11:31:34 SETH [place] 2021-06-18 2021-06-18 Outpatient EL ANNALEEBIAH, MDA MDA [id number] 12:46:20 23:59:00 LIONEL [place] 2021-06-18 2021-06-18 Outpatient EL ANNALEEBIAH, MDA MDA [id number] 11:12:22 13:25:39 LIONEL [place] 2021-06-18 2021-06-18 Outpatient EL CARLYN, MDA MDA [id number] 10:39:49 12:45:00 CHING [place] 2021-06-18 2021-06-18 Outpatient EL MDA MDA [id number] 10:14:34 10:14:34 Sanjeev [place] 2021-06-17 2021-06-17 Outpatient POULLA, MDA MDA [id number] 07:39:00 23:59:00 CHING [place] 2021-06-17 2021-06-17 Outpatient [facility] [place] MDA MDA [id number] 07:08:42 07:38:00 aSnjeev [place] 2021-06-17 2021-06-17 Outpatient POULLA, MDA MDA [id number] 06:37:35 07:07:00 CHING [place] 2021-05-31 2021-05-31 Outpatient [facility], MDA MDA [id number] 11:19:54 13:16:23 LIONEL [place] 2021-05-24 2021-05-24 Outpatient [facility], MDA MDA [id number] 00:00:00 00:00:00 LIONEL [place] 2021-04-19 2021-04-19 Outpatient [facility], MDA MDA [id number] 13:05:15 13:05:15 LIONEL [place] 2021-04-16 2021-04-16 Outpatient [facility], MDA MDA [id number] 00:00:00 00:00:00 LIONEL [place] 2021-02-26 2021-02-26 Outpatient [facility], MDA MDA [id number] 10:15:35 12:00:00 LIONEL [place] 2021-02-26 2021-02-26 Outpatient EL MDA MDA [id number] 10:00:13 10:00:13 Sanjeev [place] 2021-02-25 2021-02-25 [facility] MDA MDA [id number] 07:28:41 23:59:00 CAMACHO 2021-02-25 2021-02-25 Outpatient POULLA, MDA MDA [id number] 08:26:05 08:26:05 CHING [place] 2021-02-25 2021-02-25 Outpatient POULLA, MDA MDA [id number] 06:51:11 07:27:00 CHING [place] 2020-12-25 2020-12-25 Outpatient [facility], MDA MDA [id number] 09:55:39 23:59:00 RISHI [place] 2020-12-25 2020-12-25 Outpatient [facility], MDA MDA [id number] 08:51:21 09:49:13 LIONEL [place] 2020-12-25 2020-12-25 Outpatient MDA MDA [id number] 08:34:49 08:34:49 Sanjeev de [place] 2020-12-24 2020-12-24 [facility] MDA MDA [id number] 12:19:03 23:59:00 WANDA [place] 2020-12-24 2020-12-24 Outpatient [facility], MDA MDA [id number] 11:57:47 12:18:00 CHING [place] 2020-11-22 2020-11-22 Outpatient [facility], MDA MDA [id number] 14:29:44 14:29:44 LIONEL [place] 2020-11-09 2020-11-09 Outpatient [facility], MDA MDA [id number] 10:53:12 23:59:00 DARIUS de [place] 2020-11-09 2020-11-09 Outpatient [facility], MDA MDA [id number] 12:52:36 14:13:21 LIONEL [place] 2020-11-08 2020-11-08 Outpatient [facility], MDA MDA [id number] 09:30:00 23:59:00 DESIREE [place] 2020-11-08 2020-11-08 Outpatient [facility], MDA MDA [id number] 08:43:54 09:29:00 DARIUS [place] 2020-11-07 2020-11-07 Outpatient [facility], MDA MDA [id number] 08:59:54 09:11:15 DARIUS de los [place]nt[place] 2020-10-05 2020-10-05 Outpatient [facility], MDA MDA [id number] 13:32:02 23:59:00 DARIUS [place] 2020-10-05 2020-10-05 Outpatient [facility], MDA MDA [id number] 11:59:39 13:32:53 LIONEL [place] 2020-10-05 2020-10-05 Outpatient [facility], MDA MDA [id number] 09:30:54 13:31:00 CHING [place] 2020-09-18 2020-09-18 Outpatient [facility] MDA MDA [id number] 08:23:51 23:59:00 Sanjeev [place] 2020-09-18 2020-09-18 Outpatient [facility], MDA MDA [id number] 11:45:58 11:45:58 LIONEL [place] 2020-09-18 2020-09-18 Outpatient [facility], MDA MDA [id number] 07:54:18 08:22:00 CHING [place] 2020-09-05 2020-09-05 Outpatient [facility] MDA MDA [id number] 09:12:00 23:59:00 Sanjeev NGUYỄN 2020-09-04 2020-09-04 Outpatient [facility], MDA MDA [id number] 08:11:45 23:59:00 CHING [place] 2020-09-04 2020-09-04 Outpatient [facility], MDA MDA [id number] 10:31:00 12:35:09 LIONEL [place] 2020-09-04 2020-09-04 [facility] MDA MDA [id number] 09:26:29 09:26:29 Sanjeev de [place] 2020-09-03 2020-09-03 Outpatient [facility], MDA MDA [id number] 06:00:00 23:59:00 CHING [place] 2020-08-28 2020-08-28 Outpatient [facility], MDA MDA [id number] 11:30:27 11:30:27 LIONEL de [place] 2020-08-21 2020-08-21 Outpatient [facility], MDA MDA [id number] 13:53:13 13:53:13 LIONEL [place] 2020-08-14 2020-08-14 Outpatient [facility], MDA MDA [id number] 11:49:45 11:49:45 LIONEL Delucaers o filiberto 2020-08-12 2020-08-12 Outpatient EL SHEEBA, MDA MDA [id number] 10:49:50 10:49:50 XIOMY Delucaers o filiberto 2020-07-21 2020-07-21 Outpatient SHEEBA, MDA MDA [id number] 10:33:16 10:33:16 XIOMY Delucaers o filiberto 2020-05-15 2020-05-15 Outpatient EL ED, MDA MDA [id number] 08:43:44 23:59:00 MARIAMA Pace o filiberto 2020-05-15 2020-05-15 Outpatient LARON MCKENZIE MDA MDA [id number] 10:44:09 12:14:45 Sanjeev o filiberto 2020-05-15 2020-05-15 Outpatient MDA MDA [id number] MD 09:43:21 09:43:21 Sanjeev o filiberto 2020-05-14 2020-05-14 Outpatient CARLYN, MDA MDA [id number] MD 07:54:53 07:54:53 CHING Pace o filiberto 2020-03-14 2020-03-14 Outpatient DAPHNIE, MDA MDA [id number] 15:26:44 15:27:09 LOVE de [place] 2020-03-13 2020-03-13 Outpatient DAPHNIE, MDA MDA [id number] 12:13:03 23:59:00 LOVE Pace o filiberto 2020-03-13 2020-03-13 Outpatient CARLYN, MDA MDA [id number] 08:47:28 12:12:00 CHING Delucaers o filiberto 2020-03-13 2020-03-13 Outpatient QAMAR, MDA MDA [id number] 11:01:40 11:01:40 LIONEL Pace o filiberto 2020-03-13 2020-03-13 Outpatient EL MDA MDA [id number] 09:23:14 09:23:14 Sanjeev o filiberto 2020-03-13 2020-03-13 Outpatient DAPHNIE, MDA MDA [id number] 08:45:56 08:46:00 LOVE Pace o filiberto 2020-03-12 2020-03-12 Outpatient EL POULLARD, MDA MDA [id number] 06:33:54 06:33:54 CIHNG Pace o filiberto 2020-02-03 2020-02-03 Outpatient DONAVON ELLER MDA MDA [id number] 12:55:32 12:55:56 LOVE de [place] 2020-01-18 2020-01-18 Orders Doctor MEL [id number] Univers 00:00:00 00:00:00 Only Unassigned, RAEGAN 350.1.13.10 ity of [place] [facility] [id number] Nahid as [id number] [facility] marleni 009 Branch 2020-01-17 2020-01-17 Outpatient DONAVON ALCOCER MDA MDA [id number] 06:15:00 23:59:00 CHING [place] 2020-01-17 2020-01-17 Outpatient LARON FARLEY MDA MDA [id number] 08:35:53 11:38:45 Sanjeev de [place] 2020-01-05 2020-01-05 Orders Doctor LEAL [id number] Univers 00:00:00 00:00:00 Only Unassigned, RAEGAN 350.1.13.10 ity of [place] [facility] [id number] Nahid as [id number] [facility] marleni 009 Branch 2020-01-03 2020-01-03 Outpatient DONAVON KESSLER, MDA MDA [id number] 13:57:50 23:59:00 ANGELA de [place] 2020-01-03 2020-01-03 Outpatient DONAVON ALCOCER, MDA MDA [id number] 10:06:33 13:56:00 CHING de [place] 2020-01-03 2020-01-03 Outpatient DONAVON ELLER, MDA MDA [id number] 12:52:06 13:32:34 LOVE de [place] 2020-01-03 2020-01-03 Outpatient DONAVON NUNN, MDA MDA [id number] 10:55:37 12:33:31 LIONEL de [place] 2020-01-03 2020-01-03 Outpatient DONAVON ELLER, MDA MDA [id number] 08:00:59 10:05:00 LOVE de [place] 2020-01-03 2020-01-03 Outpatient EL MDA MDA [id number] 09:04:58 09:04:58 Sanjeev de [place] 2020-01-03 2020-01-03 Outpatient DONAVON ELLER, MDA MDA [id number] 00:00:00 00:00:00 LOVE de [place] 2020-01-03 2020-01-03 Outpatient DONAVON ALCOCER, MDA MDA [id number] 00:00:00 00:00:00 CHING de [place] 2020-01-03 2020-01-03 Outpatient DONAVON ALCOCER, MDA MDA [id number] 00:00:00 00:00:00 CHING de [place] 2020-01-03 2020-01-03 Outpatient DONAVON ALCOCER, MDA MDA [id number] 00:00:00 00:00:00 CHING de [place] 2020-01-02 2020-01-02 Outpatient DONAVON ALCOCER, MDA MDA [id number] 06:08:17 06:08:17 [facility] [place] [facility] 2020-01-02 2020-01-02 Outpatient DONAVON ALCOCER MDA MDA [id number] 00:00:00 00:00:00 [facility] [place] [facility] 2019-12-28 2019-12-28 Office Renee [facility] [id number] Univers 15:41:08 16:09:30 Visit Camacho [facility] [id number] it y of Surgical [id number] Nahid as Specialti [id number] Ne [address] 2019-12-28 2019-12-28 [facility] [id number] Univers 15:45:00 15:45:00 [facility] [id number] [facility] 2019-12-28 Outpatient [facility] [id number] Univers 15:45:00 15:45:00 [facility]-12-06 2019-12-06 Outpatient JAGDISH COY MDA MDA [id number] 00:00:00 00:00:00 Sanjeev [facility] 2019-12-05 2019-12-05 Orders Doctor LEAL 1.2.840.114 [id number] 00:00:00 00:00:00 Only Unassigned, RAEGAN 350.1.13.10 [facility] 4.2.7.2.686 [id number] 2019-12-05 2019-12-05 Orders Doctor MEL 1.2.840.114 [id number] Univers 00:00:00 00:00:00 Only Unassigned, RAEGAN 350.1.13.10 ity of [facility] 4.2.7.2.686 Nahid as [id number] [address] 2019-12-02 2019-12-02 Outpatient MDA MDA [id number] 12:57:28 12:57:28 Sanjeevscott de los [place] 2019-12-02 2019-12-02 Outpatient DONAVON NEW JAGDISH MDA MDA [id number] 00:00:00 00:00:00 Sanjeev de [place] 2019-11-25 2019-11-25 Outpatient DONAVON ELLER, MDA MDA [id number] 11:42:51 12:05:57 LOVE Sanjeev de los [place]antos 2019-11-25 2019-11-25 Telephone Renee [facility] 1.2.840.114 [id number] 00:00:00 00:00:00 [facility] 350.1.13.10 Surgical 4.2.7.2.686 Specialti [id number] es [address] [place] [address] 2019-11-25 2019-11-25 Orders Doctor LEAL 1.2.840.114 [id number] 00:00:00 00:00:00 Only Unassigned, RAEGAN 350.1.13.10 [facility] 4.2.7.2.686 [id number] 2019-11-25 2019-11-25 Telephone Renee [facility] 1.2.840.114 [id number] [facility] 00:00:00 00:00:00 [facility] 350.1.13.10 it y of Surgical 4.2.7.2.686 Nahid as Specialti [id number] Ne dical es 198 [facility] 2019-11-25 2019-11-25 Orders Doctor MEL 1.2.840.114 [id number] [facility] 00:00:00 00:00:00 Only Unassigned, RAEGAN 350.1.13.10 ity of [facility] 4.2.7.2.686 Nahid as [phone] [place] [address] [place] 2019-11-11 2019-11-11 Outpatient EL POULLARD, MDA MDA [id number] 11:12:27 23:59:00 CHING de los [place] 2019-11-11 2019-11-11 Outpatient EL SUBBIAH, MDA MDA [id number] 09:47:08 12:08:51 LIONEL de [place] 2019-11-11 2019-11-11 Outpatient EL MDA MDA [id number] MD 09:36:53 09:36:53 Sanjeev de [place] 2019-11-11 2019-11-11 Outpatient EL POULLARD, MDA MDA [id number] 00:00:00 00:00:00 CHING de [place] 2019-11-11 2019-11-11 Outpatient EL POULLARD, MDA MDA [id number] 00:00:00 00:00:00 CHING [facility] [place] 2019-11-11 2019-11-11 Outpatient EL SUBBIARachel, MDA MDA [id number] 00:00:00 00:00:00 LIONEL de los [place] 2019-11-10 2019-11-10 Outpatient EL POULLARD, MDA MDA [id number] 10:55:08 23:59:00 CHING de [place] 2019-11-10 2019-11-10 Outpatient EL POULLARD, MDA MDA [id number] 07:37:58 10:54:00 CHING de [place] 2019-11-10 2019-11-10 Outpatient EL POULLARD, MDA MDA [id number] 09:00:50 09:00:50 CHING de [place]antos 2019-11-10 2019-11-10 Outpatient [facility], MDA MDA [id number] 07:30:00 07:36:00 BRAD de los [place]antos 2019-11-08 2019-11-08 Telephone JOSSE Duran 1.2.840.114 [id number] Univers 00:00:00 00:00:00 [facility] [id number] y of Surgical 4.2.7.2.686 Nahid as Specialti [phone] Ne dical 198 [facility] 2019-10-27 2019-10-27 Telephone JOSSE Duran 1.2.840.114 [id number] Univers 00:00:00 00:00:00 [facility] 350.1.13.10 it y of Surgical 4.2.7.2.686 Nahid as Specialti [id number] Ne dicwa es 198 [facility] 2019-10-11 2019-10-11 [facility]patient [facility] [id number] Univers 11:11:55 23:59:00 LUZ ity of [facility] 2019-10-11 2019-10-11 [facility] 1.2.840.114 [id number] Univers 11:11:00 23:59:00 Encounter Luz [place] 350.1.13.10 ity of [place] 4.2.7.2.686 [place] [facility] [id number] [facility] [address] [place] 2019-10-11 2019-10-11 [facility]patient [facility] [id number] Univers 11:15:00 11:15:00 LUZ [id number] ity of [facility] 2019-10-11 2019-10-11 Orders Doctor MEL 1.2.840.114 [id number] Univers 00:00:00 00:00:00 Only Unassigned, RAEGAN 350.1.13.10 ity of [facility] 4.2.7.2.686 Nahid as [id number] [address] 2019-09-28 2019-09-28 [facility] [id number] Univers 00:00:00 00:00:00 Luz [facility] 350.1.13.10 it y of Surgical 4.2.7.2.686 Nahid as Specialti [id number] Ne dical es 198 [facility] 2019-09-26 2019-09-26 Orders Doctor MEL 1.2.840.114 [id number] Univers 00:00:00 00:00:00 Only Unassigned, AREGAN 350.1.13.10 ity of [facility] 4.2.7.2.686 Nahid as [id number] [address] 2019-09-22 2019-09-22 Telephone [facility] 1.2.840.114 [id number] Univers 00:00:00 00:00:00 [facility] 350.1.13.10 it y of Surgical 4.2.7.2.686 Nahid as Specialti [phone] Ne dical es 198 [facility] 2019-09-21 2019-09-21 Outpatient R RENEE [facility] [id number] [facility] 13:15:15 23:59:00 [facility]-09-21 2019-09-21 Hospital Renee [facility] 1.2.840.114 [id number] [facility] 13:15:00 23:59:00 Encounter Camacho Rolon 350.1.13.10 ity of Surgical 4.2.7.2.686 Nahid as Specialti [id number] Ne dical es 809 [facility] 2019-09-21 2019-09-21 Office Renee [facility] [id number] [facility] 13:01:55 13:49:44 Visit Camacho Rolon 350.1.13.10 it y of Surgical 4.2.7.2.686 Nahid as Specialti [id number] Ne dical es 198 [facility] Results Test Description Test Time Test Comments Results Result Sour e Comments XR KUB 2019-09-17 HISTORY: Bone [facility] 6 stimulator [facility] 17:13:08 placement. Branch FINDINGS: 2 abdominal radiographs are submitted. A morphine pump is seenimplanted over the right abdominal wall with catheter entering the spinalcanal at L3-L4 level and the electrode is visualized projected up to thelevel of T12. Entire length of the Electrode wire is not included in these2 images. Note made of mild constipation and multilevel degenerative disc disease. [facility], Radiant Results Inft User - 10/11/2019 12:14 PM CDTHISTORY: Bone stimulator placement.FINDINGS : 2 abdominal radiographs are submitted. A morphine pump is seenimplanted over the right abdominal wall with catheter entering the spinalcanal at L3-L4 level and the electrode is visualized projected up to thelevel of T12. Entire length of the Electrode wire is not included in these2 images.Note made of mild constipation and multilevel degenerative disc disease.
[2021-08-07 21:07] LABS: Urine Blood 2+ (Negative); Urine Glucose Negative (Negative); Urine Protein Trace (Negative); Urine Specific Gravity 1.015 (1.005-1.030)
[2021-08-07] MEDS ORDERED: HYDROMORPHONE HCL 0.5 MG/0.5 ML INJ ONE (21:44)
[2021-08-07] MEDS ORDERED: ONDANSETRON 4 MG/2 ML VIAL ONE (21:44)
[2021-08-07 22:30] LABS: Urine Bacteria <20 /HPF (<20); Urine Urothelial Cells <5 /HPF (NONE SEEN)
[2021-08-07 23:51] LABS: Urine Specific Gravity/Preg 1.015 (1.005-1.030)
--- NOTE | 2021-08-07 23:55 | EDPHYS ---
Physician Documentation [facility] Name: Sakina Pino Age: 46 yrs Sex: Female : 1975 Arrival Date: 08/07/2021 Time: 20:30 Bed 27 Private MD: KAYLA Physician Wilfred Coleman HPI: 08/07 21:52 This 46 yrs old Female presents to ER via EMS with complaints of back pain. jr8 21:52 The patient presents with pain that is acute. The symptoms are located in the low back. jr8 Onset: The symptoms/episode began/occurred acutely, today. The pain radiates to the abdomen. Associated signs and symptoms: The patient has no apparent associated signs or symptoms. Modifying factors: The patient symptoms are alleviated by nothing, the patient symptoms are aggravated by any movement. Severity of symptoms: At their worst the symptoms were moderate, in the emergency department the symptoms are unchanged. The patient has experienced similar episodes in the past, a few times. The patient has not recently seen a physician. This is a 46-year-old female patient with a history of arachnoiditis that presented to the emergency room with complaints of left back pain radiating to the left abdomen. Patient stated that she gets flareups from time to time. Stated that she is currently on gabapentin but that the pain has become too severe. When this happens she usually comes to the ER for pain medicine and feels better for several months. Denies any other symptoms at this time and denies trauma.. 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 - Social history:: Smoking status: Patient denies any tobacco usage or history of. ROS: 21:52 Eyes: Negative for injury, pain, redness, and discharge, ENT: Negative for injury, jr8 pain, and discharge, Neck: Negative for injury, pain, and swelling, Cardiovascular: Negative for chest pain, palpitations, and edema, Respiratory: Negative for shortness of breath, cough, wheezing, and pleuritic chest pain, Abdomen/GI: Negative for abdominal pain, nausea, vomiting, diarrhea, and constipation, MS/Extremity: Negative for injury and deformity, Skin: Negative for injury, rash, and discoloration, Neuro: Negative for headache, weakness, numbness, tingling, and seizure. 21:52 Back: Positive for pain at rest, pain with movement, radiated pain. Exam: 21:52 Cardiovascular: Regular rate and rhythm with a normal S1 and S2. No gallops, murmurs, jr8 or rubs. Normal PMI, no JVD. No pulse deficits. Respiratory: Lungs have equal breath sounds bilaterally, clear to auscultation and percussion. No rales, rhonchi or wheezes noted. No increased work of breathing, no retractions or nasal flaring. Abdomen/GI: Soft, non-tender, with normal bowel sounds. No distension or tympany. No guarding or rebound. No evidence of tenderness throughout. Back: No spinal tenderness. No costovertebral tenderness. Full range of motion but with pain upon flexion and lateral extension Skin: Warm, dry with normal turgor. Normal color with no rashes, no lesions, and no evidence of cellulitis. MS/ Extremity: Pulses equal, no cyanosis. Neurovascular intact. Full, normal range of motion. Neuro: Awake and alert, GCS 15, oriented to person, place, time, and situation. Cranial nerves II-XII grossly intact. Motor strength 5/5 in all extremities. Sensory grossly intact. Cerebellar exam normal. Normal gait. 21:52 Constitutional: The patient appears alert, awake, in obvious pain. Vital Signs: 20:53 BP 123 / 53; Pulse 86; Resp 20; Temp 98.6; Pulse Ox 96% on R/A; Weight 90.72 kg; Height lr4 5 ft. 3 in. (160.02 cm); Pain 10/10; 22:05 BP 99 / 84; Pulse 74; Resp 18; Pulse Ox 96% ; Pain 8/10; lr4 22:17 Pain 8/10; lr4 20:53 Body Mass Index 35.43 (90.72 kg, 160.02 cm) lr4 MDM: 21:09 Patient medically screened. linda 23:53 Data reviewed: vital signs, nurses notes, lab test result(s), and as a result, I will jr8 discharge patient. Data interpreted: Pulse oximetry: on room air is 96 %. Interpretation: normal. Counseling: I had a detailed discussion with the patient and/or guardian regarding: the historical points, exam findings, and any diagnostic results supporting the discharge/admit diagnosis, lab results, the need for outpatient follow up, a family practitioner, to return to the emergency department if symptoms worsen or persist or if there are any questions or concerns that arise at home. Response to treatment: the patient's symptoms have markedly improved after treatment. ED course: Resting comfortably in exam room at this time. No further pain. Hemodynamically stable will send home to follow-up with pain management.. 08/07 21:07 Order name: Urine Dipstick-Ancillary; Complete Time: 21:30 EDMS 08/07 21:09 Order name: Urine --Ancillary (enter results); Complete Time: 23:52 mw2 08/07 21:09 Order name: Urine Microscopic Only; Complete Time: 22:38 mw2 08/07 21:09 Order name: Urine Culture mw2 08/07 21:09 Order name: Urine Test (obtain specimen); Complete Time: 21:09 mw2 08/07 21:09 Order name: Urine Dipstick-Ancillary (obtain specimen); Complete Time: 21:09 mw2 Administered Medications: 21:47 Drug: Dilaudid (HYDROmorphone) 0.5 mg Route: IVP; Site: left hand; lr4 22:17 Follow up: Pain 8/10 Adult; Response: Pain is decreased lr4 21:47 Drug: Zofran (Ondansetron) 4 mg Route: IVP; Site: left hand; lr4 21:47 Follow up: Response: No adverse reaction; Nausea is decreased lr4 Disposition Summary: 08/07/21 23:54 Discharge Ordered Location: Home [facility] Problem: new jr8 Symptoms: have improved jr8 Condition: Stable jr8 Diagnosis - Other chronic pain jr8 Followup: jr8 - With: Private Physician - When: 2 - 3 days - Reason: Recheck today's complaints, Continuance of care, Re-evaluation by your physician Discharge Instructions: - Discharge Summary Sheet jr8 - Chronic Pain, Adult jr8 Forms: - Medication Reconciliation Form jr8 - Thank You Letter jr8 - Antibiotic Education jr8 - Prescription Opioid Use jr8 Addendum: 08/09/2021 05:31 Co-signature as Attending Physician, Wilfred Coleman MD I agree with the assessment and c ceja plan of care. Signatures: Dispatcher [employer] EDNE Wilfred Coleman MD MD cha Roszak, Josh, PA PA jr8 Trey Pope mw2 Germaine Carrillo RN RN lr4 Corrections: (The following items were deleted from the chart) 08/07 21:10 21:07 PSHx: Unable to Obtain; lr4 lr4
--- NOTE | 2021-08-07 23:55 | ER ---
Nurse's Notes [facility] Name: Sakina Pino Age: 46 yrs Sex: Female : 1975 Arrival Date: 08/07/2021 Time: 20:30 Bed 27 Private MD: Diagnosis: Other chronic pain Presentation: 08/07 20:53 Chief complaint: Patient states: Pt bib EMS for lower back pain that radiates to LLQ lr4 abdomen since this AM. Pt reports hx of "arachnoiditis" which effects her spine, and she states this feels similar. 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 Coronavirus screen: Vaccine status: Patient reports receiving the 2nd dose of the covid vaccine. Date 2020. Ebola Screen: Patient negative for fever greater than or equal to 101.5 degrees Fahrenheit, and additional compatible Ebola Virus Disease symptoms. Initial Sepsis Screen: Does the patient meet any 2 criteria? No. Patient's initial sepsis screen is negative. Does the patient have a suspected source of infection? No. Patient's initial sepsis screen is negative. Risk Assessment: Do you want to hurt yourself or someone else? Patient reports no desire to harm self or others. Onset of symptoms was August 07, 2021. 20:53 Method Of Arrival: EMS lr4 20:53 Acuity: SHANON 3 lr4 Triage Assessment: 21:07 General: Appears in no apparent distress. uncomfortable, Behavior is calm, anxious, lr4 restless. Pain: Complains of pain in back and abdomen Pain currently is 10 out of 10 on a pain scale. Quality of pain is described as sharp, stabbing, Pain began this AM. Neuro: No deficits noted. Cardiovascular: No deficits noted. Respiratory: No deficits noted. GI: Reports lower abdominal pain. : No signs and/or symptoms were reported regarding the genitourinary system. Reports. Musculoskeletal: Reports pain in back. 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 - Social history:: Smoking status: Patient denies any tobacco usage or history of. Screenin:13 Abuse screen: Denies threats or abuse. Nutritional screening: No deficits noted. lr4 Tuberculosis screening: No symptoms or risk factors identified. Fall Risk Secondary diagnosis (15 points) IV access (20 points). Ambulatory Aid- Crutches/Cane/Walker (15 pts). Gait- Weak (10 pts.). Mental Status- Overestimates/Forgets Limitations (15 pts.). Total Neal Fall Scale indicates High Risk Score (45 or more points). Fall prevention measures have been instituted. Placed Close to Nursing Station Frequent Obs/Assessments Occuring. Vital Signs: 20:53 BP 123 / 53; Pulse 86; Resp 20; Temp 98.6; Pulse Ox 96% on R/A; Weight 90.72 kg; Height lr4 5 ft. 3 in. (160.02 cm); Pain 10/10; 22:05 BP 99 / 84; Pulse 74; Resp 18; Pulse Ox 96% ; Pain 8/10; lr4 22:17 Pain 8/10; lr4 20:53 Body Mass Index 35.43 (90.72 kg, 160.02 cm) lr4 ED Course: 20:30 Patient arrived in ED. mw2 20:53 Germaine Carrillo, RN is Primary Nurse. lr4 21:07 Triage completed. lr4 21:09 Wilfred Coleman MD is Attending Physician. linda 21:09 Omer Perez PA is PHCP. jr8 21:09 Wilfred Coleman MD is Attending Physician. jr8 21:14 Arm band placed on right wrist. lr4 22:05 No provider procedures requiring assistance completed. lr4 22:06 Patient has correct armband on for positive identification. Bed in low position. Call lr4 light in reach. Side rails up X 1. Door closed. Noise minimized. 23:54 Report given to MORALES. lr4 Administered Medications: 21:47 Drug: Dilaudid (HYDROmorphone) 0.5 mg Route: IVP; Site: left hand; lr4 22:17 Follow up: Pain 8/10 Adult; Response: Pain is decreased lr4 21:47 Drug: Zofran (Ondansetron) 4 mg Route: IVP; Site: left hand; lr4 21:47 Follow up: Response: No adverse reaction; Nausea is decreased lr4 Outcome: 22:06 Condition: stable lr4 23:54 Discharge ordered by MD. kerns 23:58 Patient left the ED. lr4 Signatures: Wilfred Coleman MD MD cha Roszak, Josh, PA PA jr8 Trey Pope 2 Germaine Carrillo RN RN lr4 Corrections: (The following items were deleted from the chart) 21:10 21:07 PSHx: Unable to Obtain; lr4 lr4
[2021-08-08 01:23] VITALS: TEMP 98.6; O2SAT 96
[2021-08-08 01:24] VITALS: BP 99/84
== END 2021-08-07 23:58 | disposition home or self-care (01) ==
LOC: ER 20:28
DX: G89.29 Other chronic pain (principal); E11.9 Type 2 diabetes mellitus without complications; Z85.850 Personal history of malignant neoplasm of thyroid; Z88.0 Allergy status to penicillin; Z88.1 Allergy status to other antibiotic agents; Z88.3 Allergy status to other anti-infective agents; Z88.6 Allergy status to analgesic agent
CPT/HCPCS: 87088; 87086; 81025; 96375; 96374; 99283; J1170; J2405; 81003; 81015

== ENCOUNTER 2023-12-16 23:32 | Inpatient (IN) | payer OTHER ==
[2023-12-17] MEDS ORDERED: DIPHENHYDRAMINE 50 MG/ML VIAL ONE (00:38)
[2023-12-17] MEDS ORDERED: KETOROLAC 30 MG/ML INJ ONE (00:38)
[2023-12-17] MEDS ORDERED: ONDANSETRON 4 MG/2 ML VIAL ONE (00:38)
[2023-12-17] MEDS ORDERED: MORPHINE 2 MG/ML SYR ONE (00:39)
[2023-12-17] MEDS ORDERED: NA CHLORIDE 0.9% 1,000 ML ONE ×3 (00:39→10:56)
[2023-12-17 03:03] LABS: Specific Gravity 1.009 (1.005-1.030); Sqamous Epithelial None Seen /HPF (None Seen); Urine Bacteria None Seen /HPF (<20); Urine Bilirubin NEGATIVE (Negative); Urine Blood Negative (Negative); Urine Clarity Clear (Clear); Urine Color Colorless (Yellow); Urine Culture Reflex Order NOT NEEDED; Urine Glucose 4+ (Over) (Negative); Urine Ketones NEGATIVE (Negative); Urine Micro Reflex YN NO BILL MICROSCOPIC; Urine Mucus Slight /HPF (None Seen); Urine Nitrite NEGATIVE (Negative); Urine Protein NEGATIVE (Negative); Urine RBC None Seen /HPF (None Seen); Urine Urobilinogen Normal (Normal); Urine WBC None Seen /HPF (<5); Urine pH 6.5 (5.0-7.0)
[2023-12-17] MEDS ORDERED: CEFTRIAXONE 1000 MG/VIAL ONE (03:05)
[2023-12-17 03:26] LABS: Absolute Lymphocytes (CBC) 0.2 K/uL (0.7-4.9); Absolute Monocytes 0.1 K/uL (0.1-1.3); Absolute Neutrophil 1.5 K/uL (1.8-8.0); Basophils % 0.1 % (0-1.3); Eosinophils % 0.5 % (0-4.4); Hematocrit 20.5 % (36.0-45.0); Hemoglobin 6.9 g/dL (12.0-15.0); Lymphocytes % 10.9 % (15.3-44.8); MCH 34.9 pg (27.0-35.0); MCHC 33.8 g/dL (32.0-36.0); MCV 103.4 fL (80-100); MPV 8.3 fL (7.6-11.3); Monocytes % 4.8 % (3.3-12.3); Neutrophils % 83.7 % (41.7-73.7); Platelets 125 thou/uL (152-406); RBC Red Blood Cell Count 1.99 M/uL (3.86-4.86); Red Cell Distribution Width 14.9 % (12.1-15.2)
[2023-12-17 03:30] LABS: PT Prothrombin Time 11.3 SECONDS (9.4-12.5); Protime INR 1.01
[2023-12-17 04:08] LABS: Albumin 3.7 g/dL (3.4-5.0); Albumin/Globulin Ratio 1.5 (1.1-1.8); Anion Gap 7.3 mEq/L (5.0-15.0); Bilirubin Total 0.2 mg/dL (0.2-1.0); Globulin 2.5 g/dL (2.3-3.5); Potassium 3.3 mEq/L (3.5-5.1); Protein, Total 6.2 g/dL (6.4-8.2); Thyroid Stimulating Hormone 0.04 uIU/mL (0.358-3.740)
[2023-12-17 04:16] LABS: Blood Morphology Comment NOT SEEN (NOT SEEN); Platelet Estimate ADEQ; White Blood Cell Scan OK (OK)
--- NOTE | 2023-12-17 04:32 | EDPHYS ---
Physician Documentation [facility] Name: Sakina Pino Age: 48 yrs Sex: Female : 1975 Arrival Date: 12/16/2023 Time: 23:32 Bed 4 Private MD: ED Physician Jonathan Santos HPI: 12/15 23:42 This 48 yrs old Female presents to ER via Unassigned with complaints of migraine. 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 States she has a history of migraines and this one is similar to previous. Denies fever. STates she has been doing a colon prep for a colonoscopy in the morning. Also reports she has a morphine pain pump and believes it is not working because she cannot sit still so she is concerned that she is going through withdrawals. . Historical: - Allergies: 12/16 01:00 Ciprofloxacin; ha1 01:00 Compazine; ha1 01:00 Imitrex; ha1 01:00 Neosporin ([id number]); ha1 01:00 PENICILLINS; ha1 - PMHx: 01:00 arachnoiditis; Chronic pain; Diabetes - NIDDM; Migraines; sarcoidosis; Sleep Apnea; ha1 thryoid CA; TMJ; - PSHx: 01:00 Thyroidectomy; ha1 - Immunization history:: Adult Immunizations unknown. - Infectious Disease History:: Denies. - Social history:: Smoking status: Patient denies any tobacco usage or history of. ROS: 00:50 Constitutional: As per HPI kb Exam: 00:50 Head/Face: Normocephalic, atraumatic. ENT: Moist Mucous membranes Cardiovascular: kb Regular rate Respiratory: Respirations even and unlabored. No increased work of breathing. Talking in full sentences Abdomen/GI: Soft, non-tender. No distention Skin: Warm, dry with normal turgor. Normal color. MS/ Extremity: Pulses equal, no cyanosis. Neurovascular intact. Full, normal range of motion. Neuro: Awake and alert, GCS 15, oriented to person, place, time, and situation. Moves all extremities. Normal gait. 00:50 Constitutional: The patient appears alert, awake, pale, Vital Signs: 12/15 23:45 Weight 63.5 kg; Height 4 ft. 10 in. ; vc1 23:55 Resp 19 S; Temp 93.1(R); ha1 12/16 00:30 BP 98 / 50; Pulse 64; Resp 17 S; Pulse Ox 97% on R/A; ha1 01:08 BP 98 / 50; Pulse 63; Pulse Ox 100% ; ec2 01:20 BP 103 / 60; Pulse 58; Resp 17 S; Temp 91.9(Ca); Pulse Ox 94% on R/A; ha1 01:45 BP 114 / 57; Pulse 60; Resp 18 S; Pulse Ox 97% on R/A; ha1 02:00 BP 130 / 67; Pulse 56; Resp 17 S; Temp 92.1; Pulse Ox 96% on R/A; ha1 02:15 BP 95 / 56; Pulse 55; Resp 17 S; Pulse Ox 88% on R/A; ha1 03:00 BP 92 / 59; Pulse 57; Resp 16 S; Pulse Ox 100% on 3 lpm NC; ha1 03:30 BP 98 / 59; Pulse 68; Resp 17 S; Pulse Ox 100% on 3 lpm NC; ha1 04:00 BP 100 / 61; Pulse 74; Resp 15 S; Pulse Ox 100% on 3 lpm NC; ha1 04:09 BP 100 / 61; Pulse 71; Temp 93.9; Pulse Ox 100% ; ec2 04:30 BP 87 / 49; Pulse 63; Resp 16 S; Pulse Ox 98% on 3 lpm NC; ha1 04:50 BP 89 / 51; Pulse 62; Resp 15 S; Temp 95.0(Ca); Pulse Ox 99% on 3 lpm NC; ha1 05:00 BP 84 / 47; Pulse 63; Resp 17 S; Pulse Ox 98% on 3 lpm NC; ha1 05:30 BP 91 / 52; Pulse 68; Resp 17 S; Pulse Ox 100% on 3 lpm NC; ha1 06:05 BP 95 / 54; Pulse 72; Resp 18 S; Temp 96.4(Ca); Pulse Ox 99% on 3 lpm NC; ha1 06:15 BP 97 / 59; Pulse 72; Resp 17 S; Pulse Ox 98% on 3 lpm NC; ha1 16:32 BP 116 / 61; Pulse 73; Resp 16; Temp 97.7; Pulse Ox 99% on NC; Pain 0/10; ar6 12/15 23:45 Body Mass Index 29.26 (63.50 kg, 147.32 cm) vc1 16:32 Pain Scale: Adult ar6 Procedures: 04:05 Central Line: the site was prepped with Betadine, in sterile fashion, a triple lumen ec2 catheter was inserted, in the left internal jugular vein, in 1 attempts. placement was verified, by blood return, the site was dressed with Tegaderm, the patient tolerated the procedure, well. MDM: 12/15 23:37 Patient medically screened. kb 12/16 00:51 Data reviewed: vital signs, nurses notes. Transition of care: After a detail discussion kb of the patient's case, care is transferred to Jonathan Santos MD. 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 intake. Patient is undergoing colonoscopy prep. Plan is follow-up lab work, CT abdomen pelvis and reassess. . 02:26 ED course: CTAP shows no acute process. . ec2 02:46 ED course: EKG independently reviewed and interpreted by me, shows normal sinus rhythm, ec2 rate of 56, no acute ST segment elevations, QTc prolongation at 524 noted.. 04:05 ED course: We had issues with hemolyzed labs as well as IV placement, I placed a ec2 central line in the left neck without issue.. 04:17 ED course: Chest x-ray independently reviewed and interpreted by me, shows left IJ ec2 central line with appropriate termination. Will use.. 04:23 ED course: Metabolic profile shows slight hypokalemia with potassium of 3.3. Free T4 ec2 within normal ranges. Will admit the patient for hypothermia, anemia. . 12/16 03:34 Order name: ABO/RH typing [facility] 12/16 03:34 Order name: Antibody Screen [facility] 12/16 00:44 Order name: Blood Culture Adult (2) 12/16 00:44 Order name: CBC with Diff; Complete Time: 04:22 kb 12/16 00:44 Order name: CMP; Complete Time: 04:22 kb 12/16 00:44 Order name: Lactate w/ 2H reflex if indic.; Complete Time: 04:05 12/16 00:44 Order name: Protime (+inr); Complete Time: 03:38 kb 12/16 00:44 Order name: Ptt, Activated; Complete Time: 03:38 kb 12/16 01:57 Order name: UAM; Complete Time: 03:03 ec2 12/16 03:30 Order name: T4 Free; Complete Time: 04:22 EDMS 12/16 03:30 Order name: Thyroid Stimulating Hormone; Complete Time: 04:22 EDMS 12/16 03:31 Order name: CBC Smear Scan; Complete Time: 04:22 EDMS 12/16 03:31 Order name: Packed Rbc Leukored ec2 12/16 05:01 Order name: Fibrinogen; Complete Time: 11:54 ec2 12/16 05:01 Order name: D-Dimer; Complete Time: 11:54 ec2 12/16 05:38 Order name: ABO/RH no charge; Complete Time: 10:26 EDMS 12/16 05:45 Order name: Hemoglobin A1c; Complete Time: 10:26 EDMS 12/16 05:45 Order name: Gastric Occult Blood EDMS 12/16 13:43 Order name: Glucose, Ancillary Testing; Complete Time: 14:13 EDMS 12/16 16:34 Order name: Glucose, Ancillary Testing; Complete Time: 16:38 EDMS 12/16 01:24 Order name: CT Abd/Pelvis - Without Contrast ec2 12/16 04:05 Order name: CXR XRAY vc1 12/16 00:44 Order name: EKG; Complete Time: 00:45 kb 12/15 23:46 Order name: IV Start; Complete Time: 02:41 kb 12/16 00:44 Order name: Accucheck; Complete Time: 02:18 kb 12/16 00:44 Order name: Cardiac monitoring; Complete Time: 02:18 kb 12/16 00:44 Order name: EKG - Nurse/Tech; Complete Time: 02:40 kb 12/16 00:44 Order name: IV Saline Lock - Large Bore; Complete Time: 02:18 kb 12/16 00:44 Order name: Labs collected and sent; Complete Time: 02:18 kb 12/16 00:44 Order name: O2 Per Protocol; Complete Time: 02:18 kb 12/16 00:44 Order name: O2 Sat Monitoring; Complete Time: 02:18 kb 12/16 00:44 Order name: Vital Signs; Complete Time: 02:19 kb 12/16 02:10 Order name: Uriah Reyes; Complete Time: 02:18 ec2 12/16 02:10 Order name: Abad. Order: redraw labs ( hemolyzed); Complete Time: 02:40 vk 12/16 03:31 Order name: Consent for Blood Transfusion; Complete Time: 04:37 ec2 12/16 03:31 Order name: IV Saline Lock; Complete Time: 04:37 ec2 12/16 04:37 Order name: Central Line Kit; Complete Time: 04:39 ha1 12/16 04:39 Order name: Wood-Two way; Complete Time: 04:39 ha1 Administered Medications: 01:00 Drug: NS 0.9% IV 1000 ml IV at 1000 ml once Route: IV; Rate: 1000 ml; Site: left hand; ha1 02:15 Follow up: Response: No adverse reaction; IV Status: Completed infusion; IV Intake: ha1 1000ml 01:00 Drug: diphenhydrAMINE IVP 12.5 mg IVP once Route: IVP; Site: left hand; ha1 01:30 Follow up: Response: No adverse reaction; Marked relief of symptoms ha1 01:00 Drug: Ondansetron IVP 4 mg IVP once; over 2 minutes Route: IVP; Site: left hand; ha1 01:30 Follow up: Response: No adverse reaction; Marked relief of symptoms ha1 01:02 Drug: Ketorolac IVP 15 mg IVP once Route: IVP; Site: left antecubital; ha1 01:30 Follow up: Response: No adverse reaction; Marked relief of symptoms ha1 02:19 Not Given (Physician Discretion): morphineor iv 2 mg IVP once over 4 mins ha1 03:00 Drug: Rocephin IV 1 grams IV at calculated rate once; Given slow IV push per pharmacy ha1 instructions Route: IV; Rate: calculated rate; Site: left hand; 03:20 Follow up: Response: No adverse reaction; IV Status: Completed infusion; IV Intake: [id number] 03:00 Drug: NS 0.9% IV 1000 ml IV at 1 bolus Per protocol; 1000 mL bolus Route: IV; Rate: 1 ha1 bolus; Site: left hand; 04:20 Follow up: Response: No adverse reaction; IV Status: Completed infusion; IV Intake: ha1 1000ml 05:00 Drug: Potassium Chloride IV 20 mEq IV at calculated rate once; administer over 1-2 ha1 hours Route: IV; Rate: calculated rate; Site: left jugular; Disposition: 02:27 I reviewed the patient's care provided by Advanced Practice Provider \T\ agree w/ the ec2 diagnosis \T\ care plan. I personally saw the pt \T\ performed a substantive portion of the visit, incldng all aspects of the (History/Exam/Medical Decision Making). 16:26 Chart complete. kb Disposition Summary: 12/17/23 04:31 Hospitalization Ordered Notes: Hospitalization Status: Inpatient Admission ec2 Provider: Nilam Luciano ec2 Condition: Stable ec2 Problem: new ec2 Symptoms: have improved ec2 Bed/Room Type: Standard ec2 Location: Intensive Care Unit(12/17/23 19:46) cg Room Assignment: 1-(12/17/23 19:46) cg Diagnosis - Hypothermia, initial encounter ec2 - Anemia, unspecified ec2 - Hypokalemia ec2 Discharge Instructions: - Discharge Summary Sheet ec2 - Opioid Withdrawal ec2 Forms: - Medication Reconciliation Form ec2 - SBAR form ec2 - Leadership Thank You Letter ec2 Critical care time excluding procedures: 04:06 Critical care time: Bedside Care: 30 minutes, Consultation: 5 minutes. Total time: 35 ec2 minutes Signatures: Dispatcher [employer] EDSD Ny Kumar FNP-C BOOK SOLICITOR-Ckb Kennedi Lord FNP-C BOOK SOLICITOR-Csnw Kim Figueroa RN RN Rubi Ferrer RN RN 1 Sully Lundberg RN RN 1 Jonathan Santos MD MD ec2 Zulema Barraza Corrections: (The following items were deleted from the chart) 00:45 00:45 BLOOD CULTURE*+BA.LAB.BRZ ordered. EDSD EDSD 00:45 00:45 CBC+H.LAB.BRZ ordered. EDSD EDSD 00:45 00:45 COMPREHENSIVE METABOLIC PANEL+C.LAB.BRZ ordered. EDSD EDSD 00:45 00:45 LACTATE+C.LAB.BRZ ordered. EDSD EDSD 00:45 00:45 PROTIME (+INR)+COAG.LAB.BRZ ordered. EDMS EDMS 00:45 00:45 PTT, ACTIVATED+COAG.LAB.BRZ ordered. EDMS EDMS 01:25 01:25 Abdomen Pelvis Wo Con+CT.RAD.BRZ ordered. EDMS EDMS 01:34 00:45 Abdomen Pelvis W Con+CT.RAD.BRZ ordered. EDMS EDMS 02:34 00:45 Urinalysis+U.LAB.BRZ ordered. EDMS EDMS 03:29 03:18 THYROID STIMULAT HORMONE+C.LAB.BRZ ordered. EDMS EDMS 03:29 03:18 T4 FREE+C.LAB.BRZ ordered. EDMS EDMS 03:32 03:32 PACKED RBC LEUKORED+BB.LAB.BRZ ordered. EDMS EDMS 04:06 04:06 Chest Single View+RAD.RAD.BRZ ordered. EDMS EDMS 04:41 03:32 TYPE AND SCREEN+BB.LAB.BRZ ordered. EDMS EDMS 05:05 04:31 Telemetry/MedSurg (Inpatient) ec2 ec2 05:05 04:31 ec2 ec2 05:05 05:05 Intensive Care Unit ec2 vc1 05:05 05:05 ec2 vc1 19:46 05:05 [facility] ER HOLD vc1 cg 19:46 05:05 ERHOLD- vc1 cg
--- NOTE | 2023-12-17 04:32 | ER ---
Nurse's Notes [facility] Name: Sakina Pino Age: 48 yrs Sex: Female : 1975 Arrival Date: 12/16/2023 Time: 23:32 Bed 4 Private MD: Diagnosis: Hypothermia, initial encounter;Anemia, unspecified;Hypokalemia Presentation: 12/15 23:45 Chief complaint: EMS states: She feels like her pain pump isn't working right, she vc1 still has a bad headache. 23:45 Coronavirus screen: Client denies travel out of the [place] in the last 14 days. At this vc1 time, the client does not indicate any symptoms associated with coronavirus-19. Ebola Screen: Patient negative for fever greater than or equal to 101.5 degrees Fahrenheit, and additional compatible Ebola Virus Disease symptoms Patient denies exposure to infectious person. Patient denies travel to an Ebola-affected area in the 21 days before illness onset. No symptoms or risks identified at this time. Initial Sepsis Screen: Does the patient meet any 2 criteria? No. Patient's initial sepsis screen is negative. Does the patient have a suspected source of infection? No. Patient's initial sepsis screen is negative. Risk Assessment: Do you want to hurt yourself or someone else? Patient reports no desire to harm self or others. Onset of symptoms was December 17, 2023. 23:45 Method Of Arrival: EMS: [facility] vc1 23:45 Acuity: SHANON 3 vc1 Triage Assessment: 23:43 General: Appears uncomfortable, Behavior is calm, cooperative. Neuro: Level of ha1 Consciousness is awake, alert, obeys commands, Oriented to person, place, time, situation, Reports weakness. Cardiovascular: Capillary refill < 3 seconds Patient's skin is warm and dry. Respiratory: Airway is patent Respiratory effort is even, unlabored, Respiratory pattern is regular, symmetrical. GI: Abdomen is round non-distended, obese. : No signs and/or symptoms were reported regarding the genitourinary system. Derm: Skin is pale. Musculoskeletal: Circulation, motion, and sensation intact. Historical: - Allergies: 12/16 01:00 Ciprofloxacin; ha1 01:00 Compazine; ha1 01:00 Imitrex; ha1 01:00 Neosporin ([id number]); ha1 01:00 PENICILLINS; ha1 - PMHx: 01:00 arachnoiditis; Chronic pain; Diabetes - NIDDM; Migraines; sarcoidosis; Sleep Apnea; ha1 thryoid CA; TMJ; - PSHx: 01:00 Thyroidectomy; ha1 - Immunization history:: Adult Immunizations unknown. - Infectious Disease History:: Denies. - Social history:: Smoking status: Patient denies any tobacco usage or history of. Screenin:00 [facility] ED Fall Risk Assessment (Adult) History of falling in the last 3 months, vc1 including since admission No falls in past 3 months (0 pts) Confusion or Disorientation No (0 pts) Intoxicated or Sedated No (0 pts) Impaired Gait No (0 pts) Mobility Assist Device Used No (0 pt) Altered Elimination No (0 pt) Score/Fall Risk Level 0 - 2 = Low Risk Oriented to surroundings, Maintained a safe environment, Educated pt \T\ family on fall prevention, incl call for assistance when getting out of bed. Abuse screen: Denies threats or abuse. Nutritional screening: No deficits noted. Tuberculosis screening: No symptoms or risk factors identified. Assessment: 12/15 23:55 Reassessment: notified care provider of temperature. ha1 23:55 Pain: Complains of pain in headache Pain does not radiate. Pain currently is 8 out of ha1 10 on a pain scale. Quality of pain is described as heavy, pressure, Pain began gradually. 12/16 01:00 Reassessment: Patient and/or family updated on plan of care and expected duration. Pain ha1 level reassessed. 02:00 Reassessment: Dr. Santos notified on new temperature levels. ha1 02:00 Reassessment: Patient and/or family updated on plan of care and expected duration. Pain ha1 level reassessed. Respiratory: Airway is patent Respiratory effort is even, unlabored, Respiratory pattern is regular, symmetrical. 03:00 Reassessment: Notified Dr. Santos of low BP. ha1 03:00 Reassessment: Patient and/or family updated on plan of care and expected duration. Pain ha1 level reassessed. Respiratory: Airway is patent Respiratory effort is even, unlabored, Respiratory pattern is regular, symmetrical. 04:00 Reassessment: Patient and/or family updated on plan of care and expected duration. Pain ha1 level reassessed. 04:00 Respiratory: Airway is patent Respiratory effort is even, unlabored, Respiratory ha1 pattern is regular, symmetrical. 05:00 Reassessment: Patient and/or family updated on plan of care and expected duration. Pain ha1 level reassessed. Patient is alert, oriented x 3, equal unlabored respirations, skin warm/dry/pink. Notified Dr. Santos of low BP. Patient placed on Trendelenburg's position. 06:00 Reassessment: Patient and/or family updated on plan of care and expected duration. Pain ha1 level reassessed. Respiratory: Airway is patent Respiratory effort is even, unlabored, Respiratory pattern is regular, symmetrical. 17:12 Reassessment: Patient appears in no apparent distress at this time. Patient states ld1 feeling better. Vital Signs: 12/15 23:45 Weight 63.5 kg; Height 4 ft. 10 in. ; vc1 23:55 Resp 19 S; Temp 93.1(R); ha1 12/16 00:30 BP 98 / 50; Pulse 64; Resp 17 S; Pulse Ox 97% on R/A; ha1 01:08 BP 98 / 50; Pulse 63; Pulse Ox 100% ; ec2 01:20 BP 103 / 60; Pulse 58; Resp 17 S; Temp 91.9(Ca); Pulse Ox 94% on R/A; ha1 01:45 BP 114 / 57; Pulse 60; Resp 18 S; Pulse Ox 97% on R/A; ha1 02:00 BP 130 / 67; Pulse 56; Resp 17 S; Temp 92.1; Pulse Ox 96% on R/A; ha1 02:15 BP 95 / 56; Pulse 55; Resp 17 S; Pulse Ox 88% on R/A; ha1 03:00 BP 92 / 59; Pulse 57; Resp 16 S; Pulse Ox 100% on 3 lpm NC; ha1 03:30 BP 98 / 59; Pulse 68; Resp 17 S; Pulse Ox 100% on 3 lpm NC; ha1 04:00 BP 100 / 61; Pulse 74; Resp 15 S; Pulse Ox 100% on 3 lpm NC; ha1 04:09 BP 100 / 61; Pulse 71; Temp 93.9; Pulse Ox 100% ; ec2 04:30 BP 87 / 49; Pulse 63; Resp 16 S; Pulse Ox 98% on 3 lpm NC; ha1 04:50 BP 89 / 51; Pulse 62; Resp 15 S; Temp 95.0(Ca); Pulse Ox 99% on 3 lpm NC; ha1 05:00 BP 84 / 47; Pulse 63; Resp 17 S; Pulse Ox 98% on 3 lpm NC; ha1 05:30 BP 91 / 52; Pulse 68; Resp 17 S; Pulse Ox 100% on 3 lpm NC; ha1 06:05 BP 95 / 54; Pulse 72; Resp 18 S; Temp 96.4(Ca); Pulse Ox 99% on 3 lpm NC; ha1 06:15 BP 97 / 59; Pulse 72; Resp 17 S; Pulse Ox 98% on 3 lpm NC; ha1 16:32 BP 116 / 61; Pulse 73; Resp 16; Temp 97.7; Pulse Ox 99% on NC; Pain 0/10; ar6 12/15 23:45 Body Mass Index 29.26 (63.50 kg, 147.32 cm) vc1 16:32 Pain Scale: Adult ar6 ED Course: 12/15 23:36 Patient arrived in ED. ec2 23:37 Ny [facility]NP-C [facility]. kb 23:37 Jonathan Santos MD is Attending Physician. kb 23:55 Door closed. Warm blanket given. Pillow given. ha1 12/16 00:00 Patient has correct armband on for positive identification. Placed in gown. Bed in low vc1 position. campus monitor on. Pulse ox on. NIBP on. 00:00 Arm band placed on right wrist. vc1 00:15 Missed attempt(s): 20 gauge in right antecubital area. Bleeding controlled, band aid ha1 applied, catheter tip intact. 00:20 Cleaned of incontinence. ha1 00:20 Warm blanket given. ha1 00:20 EKG done, by ED staff, reviewed by Jonathan Santos MD. ha1 00:30 Missed attempt(s): 20 gauge in left forearm. Bleeding controlled, band aid applied, ha1 catheter tip intact. 00:35 Initial lab(s) drawn, by me, by ED staff, sent to lab. ha1 00:45 Inserted saline lock: 22 gauge in left hand, using aseptic technique. Blood collected. ha1 Flushed with 10 mL NS. 01:00 Wood cath inserted, using sterile technique, [address], balloon inflated, to ha1 gravity drainage, urine specimen collected. returned clear yellow urine. Patient tolerated well. 01:49 CT Abd/Pelvis - Without Contrast In Process Unspecified. EDMS 02:00 Provided Education on: need for central line and central line procedure . ha1 02:22 Triage completed. vc1 04:00 Assisted provider with central line placement. Set up central line tray. Triple lumen ha1 line placed in left internal jugular. Line placed by Jonathan Santos MD Placement verified by CXR, blood return, Dressed with Tape, Tegaderm, Blood was collected. Patient tolerated well. Before procedure, did Practitioner(s) obtain informed consent? Yes. Patient \T\ family education about procedure, CLABSI prevention and S/S of infection? Yes. Time-out/Briefing performed prior to start of procedure? Yes. Was handwashing/sanitizing done immediately prior to procedure? Yes. Was patient positioned to in a way to prevent air embolism? Yes. Was procedure site sterilized? Yes, with chlorhexidine. Was the site allowed to dry? Yes. Was local anesthetic and/or sedation utilized? Yes. During the procedure, did the Practitioner(s) maintain a sterile field? Yes. Were unused ports clamped during insertion? Yes. Was blood aspirated from each lumen? Yes. 04:18 CXR XRAY In Process Unspecified. EDMS 04:31 Nilam Luciano MD is Hospitalizing Provider. ec2 21:07 Patient admitted, IV remains in place. ha1 Administered Medications: 01:00 Drug: NS 0.9% IV 1000 ml IV at 1000 ml once Route: IV; Rate: 1000 ml; Site: left hand; ha1 02:15 Follow up: Response: No adverse reaction; IV Status: Completed infusion; IV Intake: ha1 1000ml 01:00 Drug: diphenhydrAMINE IVP 12.5 mg IVP once Route: IVP; Site: left hand; ha1 01:30 Follow up: Response: No adverse reaction; Marked relief of symptoms ha1 01:00 Drug: Ondansetron IVP 4 mg IVP once; over 2 minutes Route: IVP; Site: left hand; ha1 01:30 Follow up: Response: No adverse reaction; Marked relief of symptoms ha1 01:02 Drug: Ketorolac IVP 15 mg IVP once Route: IVP; Site: left antecubital; ha1 01:30 Follow up: Response: No adverse reaction; Marked relief of symptoms ha1 02:19 Not Given (Physician Discretion): morphineor iv 2 mg IVP once over 4 mins ha1 03:00 Drug: Rocephin IV 1 grams IV at calculated rate once; Given slow IV push per pharmacy ha1 instructions Route: IV; Rate: calculated rate; Site: left hand; 03:20 Follow up: Response: No adverse reaction; IV Status: Completed infusion; IV Intake: [id number] 03:00 Drug: NS 0.9% IV 1000 ml IV at 1 bolus Per protocol; 1000 mL bolus Route: IV; Rate: 1 ha1 bolus; Site: left hand; 04:20 Follow up: Response: No adverse reaction; IV Status: Completed infusion; IV Intake: ha1 1000ml 05:00 Drug: Potassium Chloride IV 20 mEq IV at calculated rate once; administer over 1-2 ha1 hours Route: IV; Rate: calculated rate; Site: left jugular; Medication: 02:24 VIS not applicable for this client. vc1 Intake: 02:15 IV: 1000ml; Total: 1000ml. ha1 03:20 IV: 50ml; Total: 1050ml. ha1 04:20 IV: 1000ml; Total: 2050ml. ha1 Output: 01:00 Urine: 1000ml (Wood); Total: 1000ml. 1 Outcome: 04:31 Decision to Hospitalize by Provider. ec2 21:04 Admitted to ICU accompanied by nurse, via stretcher, on monitor, Report called to mike Anaya RN 21:04 Condition: stable 21:04 Instructed on the need for admit, Demonstrated understanding of instructions, 21:07 Patient left the ED. [facility] Signatures: Dispatcher [employer] Ny Myers, JEEVAN IVAN-Diann Petty RN RN ld1 Rubi Ferrer RN RN 1 Sully Lundberg RN RN Jonathan Grace MD MD ec2 Tami Ayon RN RN ar6 Corrections: (The following items were deleted from the chart) 04:57 12/15 23:55 Resp 19bpm; Spontaneous; Temp 93.1F; ha1 ha1 12/16 05:01 01:20 BP 103 / 60; Pulse 58bpm; Resp 17bpm; Spontaneous; Pulse Ox 94% RA; ha1 ha 05:02 01:30 Wood cath inserted, using sterile technique, [address], balloon inflated, to ha1 gravity drainage, urine specimen collected. returned clear yellow urine. Patient tolerated well. 05:37 04:57 Reassessment: Patient and/or family updated on plan of care and expected ha1 duration. Pain level reassessed. Patient is alert, oriented x 3, equal unlabored respirations, skin warm/dry/pink. ha1
[2023-12-17] MEDS ORDERED: KCL 20 MEQ/100 mL IVPB 100 ML IV ONE (04:51)
[2023-12-17] MEDS ORDERED: NA CHLORIDE 0.9% 0 ML ONE (04:51)
--- NOTE | 2023-12-17 05:23 | P.HP ---
Certification for Inpatient With expected LOS: >2 Midnights Practitioner: I am a practitioner with admitting privileges, knowledge of patient current condition, hospital course, and medical plan of care. Services: Services provided to patient in accordance with Admission requirements found in Title 42 Section 412.3 of the Code of Federal Regulations Patient History Date of Service: 12/17/23 Reason for admission: hypotension, anemia History of Present Illness: 48-year-old female presented with complaints of headache. She also reported that she had migraines as well as nausea that started 12 hours before arriving. The patient also states that she has a pain pump and ran out of morphine. She has a complicated medical history including history of chronic pain, diabetes as well as thyroid cancer. She has history of thyroidectomy. she is currently taking Pralsetinib 100mg History was limited due to patient very lethargic after receiving IV Benadryl She was noted to be hypotensive in the ER as well as hypothermic. A Uriah hugger was placed. ED treatments include Zofran 4 mg, diphenhydramine 12.5 mg, normal saline 1000 mL, ketorolac 15 mg IV, Rocephin 1 g, additional sodium chloride bolus 1000 cc, potassium Imaging was also done CT scan chest abdomen pelvis. Allergies Penicillins Allergy (Unverified 11/13/14 12:26) Unknown prochlorperazine edisylate [From Compazine] Allergy (Unverified 11/13/14 12:26) Unknown prochlorperazine maleate [From Compazine] Allergy (Unverified 11/13/14 12:26) Unknown sumatriptan [From Imitrex] Allergy (Unverified 11/13/14 12:26) Unknown sumatriptan succinate [From Imitrex] Allergy (Unverified 11/13/14 12:26) Unknown Review of Systems 10-point ROS is otherwise unremarkable Gastrointestinal: Nausea Physical Examination - Physical Exam General: Obese, Other (lethargic) HEENT: Atraumatic Neck: Other (left IJ) Respiratory: Clear to auscultation bilaterally, Normal air movement Cardiovascular: Regular rate/rhythm Gastrointestinal: Normal bowel sounds, Soft and benign Musculoskeletal: Other (edema) Integumentary: No rashes - Studies Laboratory Data (last 24 hrs) 12/17/23 12/17/23 12/17/23 02:39 02:37 02:31 WBC 1.80 L Hgb 6.9 L Hct 20.5 L Plt Count 125 L PT 11.3 INR 1.01 APTT 38.0 H Sodium 136 Potassium 3.3 L BUN 12 Creatinine 0.75 Glucose 114 H Total Bilirubin 0.2 AST 59 H ALT 31 Alkaline Phosphatase 75 Assessment and Plan - Problems (Diagnosis) (1) Pancytopenia Current Visit: Yes Status: Acute Plan: Likely secondary to chemotherapy Order fibrinogen, D-dimer 2 units PRBC ordered Serial CBC She denies melena or dark stools Will consider hematology consultation pending clinical course (2) Hypotension Current Visit: Yes Status: Acute Plan: Continue IV fluids She may require pressors Blood has been ordered (3) Thyroid cancer Current Visit: Yes Status: Acute Plan: History of thyroidectomy, on treatment thyroid studies ordered (4) Hypothyroidism Current Visit: Yes Status: Acute Plan: Thyroid studies stable Continue replacement (5) Migraine Current Visit: Yes Status: Acute Plan: Appears to be chronic issue no acute focal symptoms seen may consider CT head at this time not indicated (6) Chronic pain Current Visit: Yes Status: Acute Plan: Reports having pain pump Will order as needed morphine and Tylenol (7) Diabetes Current Visit: Yes Status: Acute Plan: Will check a hemoglobin A1c Fingerstick blood sugars ACHS Sliding scale insulin (8) Hypokalemia Current Visit: Yes Status: Acute Plan: replaced in ed recheck (9) Hypothermia Current Visit: Yes Status: Acute Plan: unclear etiology thyroid studies wnl, hx of thyroidectomy has anemia uriah hugger placed ivf given - Advance Directives Does patient have a Living Will: No Does patient have a Durable POA for Healthcare: No
[2023-12-17] MEDS ORDERED: MORPHINE 2 MG/ML SYR IV PRN (05:41)
[2023-12-17] MEDS ORDERED: NA CHLORIDE 0.9% 250 ML ONE (05:47)
[2023-12-17] MEDS: NA CHLORIDE 0.9% 1,000 ML IV SCH (06:00)
[2023-12-17] MEDS: INSULIN REGULAR (HUMAN) 100 UNIT/ML SQ SCH (07:30)
[2023-12-17] MEDS: HYDROCORTISONE SUC 100 MG INJ IV SCH (11:00)
[2023-12-17 11:43] LABS: D-Dimer 0.461 FEUug/mL (0-0.50)
[2023-12-17] MEDS ORDERED: HYDROCORTISONE SUC 100 MG INJ ONE (11:43)
--- NOTE | 2023-12-17 12:08 | P.PN ---
Date of Service: 12/17/23 Pt holding in ED for ICU bed. Hx of thyroid ca, under treatment. Noted to have pancytopenia. Hgb 6.9 in ED. Will receive 3 units PRBCs. One infused so far. Pt states she is feeling better. Remains hypothermic with soft blood pressure. Solu cortef 100mg IV BID ordered. <Kennedi Lord - Last Filed: 12/17/23 12:06> Pt seen and examined. I agree with the note by the DINING MANAGER. She has anemia. Will give a total of 3 units of blood and continue steroid. <Nilam Luciano - Last Filed: 12/17/23 15:47>
--- NOTE | 2023-12-17 13:52 | RAD REPORT ---
EXAM DESCRIPTION: CT - Abdomen Pelvis Wo Contrast - 12/17/2023 6:55 am CLINICAL HISTORY: The patient is 48 years old and is Female; Abdomen pain. TECHNIQUE: Axial computed tomography images of the abdomen and pelvis without intravenous contrast. Sagittal and coronal reformatted images were created and reviewed. This CT exam was performed usi ng one or more of the following dose reduction techniques: automated exposure control, adjustment o f the mA and/or kV according to patient size, and/or use of iterative reconstruction technique. DLP: 1370 mGy*cm COMPARISON: CT Abdomen pelvis W contrast 09/05/2019. FINDINGS: LUNG BASES: Bibasilar chronic lung changes and atelectasis. ABDOMEN: LIVER: Unremarkable. GALLBLADDER AND BILE DUCTS: Unremarkable. No calcified stones. No ductal dilation. PANCREAS: Unremarkable. No ductal dilation. SPLEEN: Unremarkable. No splenomegaly. ADRENALS: Unremarkable. No mass. KIDNEYS AND URETERS: Unremarkable. No obstructing stones. No hydronephrosis. STOMACH AND BOWEL: Scattered colonic diverticulosis. No acute diverticulitis. No obstruction. PELVIS: APPENDIX: No findings to suggest acute appendicitis. BLADDER: Unremarkable. No stones. REPRODUCTIVE: Unremarkable as visualized. ABDOMEN and PELVIS: INTRAPERITONEAL SPACE: Unremarkable. No free air. No significant fluid collection. BONES/JOINTS: Advanced multilevel multifactorial degenerative changes of the lumbar spine. No acute fracture. No dislocation. SOFT TISSUES: Unremarkable. VASCULATURE: Unremarkable. No abdominal aortic aneurysm. LYMPH NODES: Unremarkable. No enlarged lymph nodes. IMPRESSION: 1. No acute abdominal or pelvic abnormality. 2. Scattered colonic diverticulosis. No acute diverticulitis. 3. Prior granulomatous disease. 4. Advanced multilevel multifactorial degenerative changes of the lumbar spine. Atherosclerotic v ascular calcifications. 5. Bibasilar chronic lung changes and atelectasis. Electronically signed by: Frank Lilly DO 12/17/2023 02:22 AM CDT 9 Due to temporary technical issues with the PACS/Fluency reporting system, reports are being signed by the in house radiologists without review as a courtesy to insure prompt reporting. The interpreting radiologist is fully responsible for the content of the report.
[2023-12-17] MEDS ORDERED: NA CHLORIDE 0.9% 500 ML ONE (13:54)
--- NOTE | 2023-12-17 14:25 | RAD REPORT ---
EXAM DESCRIPTION: RAD - Chest Single View - 12/17/2023 4:16 am CLINICAL HISTORY: Central line placement COMPARISON: None TECHNIQUE: Chest 1 View AP FINDINGS: Trachea midline. Heart size and pulmonary vessels within normal limits. Lungs clear without evidence of consolidation, mass, or significant pulmonary edema. No significant pleural effusion or pneumothorax. Bones unremarkable. Left internal jugular CVC tip overlies SVC. Neurostimulator lead tip overlies mid thoracic spinal canal. Superior chest surgical clips. IMPRESSION: 1. No radiographic evidence of acute chest disease. 2. Left internal jugular CVC tip overlies SVC. Electronically signed by: Kael Barber MD 12/17/2023 04:55 AM CDT RP Due to temporary technical issues with the PACS/Fluency reporting system, reports are being signed by the in house radiologists without review as a courtesy to insure prompt reporting. The interpreting radiologist is fully responsible for the content of the report.
[2023-12-17 22:48] LABS: Hematocrit 34.8 % (36.0-45.0); Hemoglobin 11.8 g/dL (12.0-15.0)
[2023-12-17 23:56] VITALS: BMI 41.9
[2023-12-18 05:33] LABS: Absolute Lymphocytes (CBC) 0.1 K/uL (0.7-4.9); Absolute Monocytes 0.1 K/uL (0.1-1.3); Absolute Neutrophil 2.3 K/uL (1.8-8.0); Eosinophils % 0.1 % (0-4.4); Hematocrit 34.8 % (36.0-45.0); Hemoglobin 12.2 g/dL (12.0-15.0); Lymphocytes % 5.2 % (15.3-44.8); MCH 32.7 pg (27.0-35.0); MCHC 34.9 g/dL (32.0-36.0); MCV 93.4 fL (80-100); MPV 7.9 fL (7.6-11.3); Monocytes % 4.7 % (3.3-12.3); Nucleated Red Blood Cells % 0.2 % (0-0); Platelets 138 thou/uL (152-406); RBC Red Blood Cell Count 3.73 M/uL (3.86-4.86); Red Cell Distribution Width 22.7 % (12.1-15.2)
[2023-12-18 05:50] LABS: Anion Gap 4.8 mEq/L (5.0-15.0); Potassium 3.8 mEq/L (3.5-5.1)
--- NOTE | 2023-12-18 09:25 | P.PN ---
Subjective Date of Service: 12/18/23 Chief Complaint: hypotension, anemia Subjective: Improving (will downgrade from ICU today) <Mari Lordpaulino Vazquez - Last Filed: 12/18/23 09:38> Date of Service: 12/18/23 <Nilam Luciano Natalya - Last Filed: 12/18/23 10:08> Review of Systems 10-point ROS is otherwise unremarkable General: Other (states she feels hot and tired) Gastrointestinal: Nausea, Vomiting, Other (resolved) Neurological: Weakness <LordKennedi Vazquez - Last Filed: 12/18/23 09:38> Physical Examination - Vital Signs Temperature: 98 F Blood Pressure: 140/74 Pulse: 57 Respirations: 12 Pulse Ox (%): 98 - Physical Exam General: Alert, In no apparent distress, Oriented x3, Obese, Other (much imp roved over yesterday) HEENT: Atraumatic, Normocephalic, PERRLA Respiratory: Normal air movement Cardiovascular: No edema, Normal pulses, Regular rate/rhythm, Other (mild bradycardia) Capillary refill: <2 Seconds Gastrointestinal: Soft and benign Musculoskeletal: No clubbing Integumentary: Other (improved coloration) Neurological: Normal speech, Normal tone, Normal affect Lymphatics: No axilla or inguinal lymphadenopathy External genitalia: Deferred Rectal: Deferred <Mari Lordpaulino Vazquez - Last Filed: 12/18/23 09:38> Assessment And Plan - Plan - Problems (Diagnosis) (1) Pancytopenia Current Visit: Yes Status: Acute Plan: Likely secondary to chemotherapy Order fibrinogen, D-dimer 2 units PRBC ordered Serial CBC She denies melena or dark stools Will consider hematology consultation pending clinical course (2) Hypotension Current Visit: Yes Status: Acute Plan: Continue IV fluids She may require pressors Blood has been ordered Resolved po IV steroids (3) Thyroid cancer Current Visit: Yes Status: Acute Plan: History of thyroidectomy, on treatment thyroid studies ordered (4) Hypothyroidism Current Visit: Yes Status: Acute Plan: Thyroid studies stable Hold replacement - TSH low 0.040 (5) Migraine Current Visit: Yes Status: Acute Plan: Appears to be chronic issue no acute focal symptoms seen may consider CT head at this time not indicated (6) Chronic pain Current Visit: Yes Status: Acute Plan: Reports having pain pump Will order as needed morphine and Tylenol (7) Diabetes Current Visit: Yes Status: Acute Plan: Will check a hemoglobin A1c Fingerstick blood sugars ACHS Sliding scale insulin - has not required insulin 12/18/23 Glucose 114 (8) Hypokalemia Current Visit: Yes Status: Acute Plan: replaced in ed recheck 12/18/23 potassium = 3.8 (9) Hypothermia Current Visit: Yes Status: Acute Plan: unclear etiology thyroid studies wnl, hx of thyroidectomy has anemia 6.9/20.5 - three units PRBC - post H/H 12.2/34.8 (12/17) tavo karson placed- Hydrocortisone given IV - temp normalized ivf given Adrenal insufficiency as s/s responded to Hydrocortisone <Kennedi Lord - Last Filed: 12/18/23 09:38> - Plan Pt seen and examined. I agree with the note by the JUNIOR COPYWRITER. She is feeling better after 3 units of blood. Hgb is 12.2. Monitor H/H. Pt denies any headache. as anemia. Hypotension and hypothermia resolved. Continue home meds for other chronic medical problems. <Nilam Luciano - Last Filed: 12/18/23 10:08>
[2023-12-18] MEDS: HYDROCORTISONE 10 MG TAB PO SCH (11:57)
--- NOTE | 2023-12-18 13:33 | EKG ---
Test Date: 2023-12-17 Test Time: 02:44:01 Information Systems Coordinator: DYAN MEASUREMENT RESULTS: Intervals: Rate: 56 OR: 204 QRSD: 102 QT: 542 QTc: 523 Goodman: P: 91 OR: 204 QRS: 94 T: 77 INTERPRETIVE STATEMENTS: Suspect arm lead reversal, interpretation assumes no reversal Sinus bradycardia Nonspecific T wave abnormality Prolonged QT Abnormal ECG Compared to ECG 11/13/2014 09:14:25 Sinus rhythm no longer present T-wave abnormality still present Electronically Signed On 12-18-23 13:30:01 CDT by Gee Hyman
--- NOTE | 2023-12-18 13:33 | EKG ---
Test Date: 2023-12-17 Test Time: 02:44:25 Computer Game Programmer: DYAN MEASUREMENT RESULTS: Intervals: Rate: 56 CA: 218 QRSD: 102 QT: 544 QTc: 524 Phil Campbell: P: 84 CA: 218 QRS: 92 T: 79 INTERPRETIVE STATEMENTS: Sinus bradycardia with 1st degree AV block Nonspecific T wave abnormality Prolonged QT Abnormal ECG Compared to ECG 12/17/2023 02:44:01 First degree AV block now present T-wave abnormality still present Electronically Signed On 12-18-23 13:29:58 CDT by Gee Hyman
[2023-12-19] MEDS: ACETAMINOPHEN 500 MG TAB PO PRN (04:05)
[2023-12-19 05:07] LABS: Absolute Lymphocytes (CBC) 0.3 K/uL (0.7-4.9); Absolute Monocytes 0.1 K/uL (0.1-1.3); Absolute Neutrophil 1.6 K/uL (1.8-8.0); Basophils % 0.2 % (0-1.3); Hematocrit 34.2 % (36.0-45.0); Hemoglobin 11.5 g/dL (12.0-15.0); Lymphocytes % 13.6 % (15.3-44.8); MCH 31.5 pg (27.0-35.0); MCHC 33.7 g/dL (32.0-36.0); MCV 93.4 fL (80-100); MPV 7.7 fL (7.6-11.3); Neutrophils % 79.2 % (41.7-73.7); Nucleated Red Blood Cells % 0.2 % (0-0); Platelets 137 thou/uL (152-406); RBC Red Blood Cell Count 3.66 M/uL (3.86-4.86); Red Cell Distribution Width 22.7 % (12.1-15.2)
[2023-12-19 05:45] LABS: Albumin 2.9 g/dL (3.4-5.0); Albumin/Globulin Ratio 1.2 (1.1-1.8); Anion Gap 4.4 mEq/L (5.0-15.0); Bilirubin Total 0.2 mg/dL (0.2-1.0); Globulin 2.5 g/dL (2.3-3.5); Magnesium 2.1 mg/dL (1.6-2.4); Phosphorus 2.3 mg/dL (2.5-4.9); Potassium 3.4 mEq/L (3.5-5.1); Protein, Total 5.4 g/dL (6.4-8.2)
[2023-12-19] MEDS: ONDANSETRON 4 MG/2 ML VIAL IV PRN (09:19)
[2023-12-19] MEDS: POTASSIUM CL SA 10 MEQ TAB PO ONE (10:39)
--- NOTE | 2023-12-19 11:30 | P.PN ---
Subjective Date of Service: 12/19/23 Chief Complaint: hypotension, anemia Subjective: Improving (feeling much better, sitting up in bed. alert) <Kennedi Lord - Last Filed: 12/19/23 11:56> Date of Service: 12/19/23 <Nilam Luciano Natalya - Last Filed: 12/19/23 14:43> Review of Systems 10-point ROS is otherwise unremarkable Gastrointestinal: Nausea Neurological: Other (YOU) <Kennedi Lordlen - Last Filed: 12/19/23 11:56> Physical Examination - Vital Signs Temperature: 96.9 F Blood Pressure: 145/74 Pulse: 57 Respirations: 16 Pulse Ox (%): 96 - Physical Exam General: Alert, In no apparent distress, Oriented x3 HEENT: Atraumatic, Normocephalic Neck: Supple Respiratory: Normal air movement Cardiovascular: Regular rate/rhythm, Normal S1 S2, Edema (mild to bilateral lower ext) Capillary refill: <2 Seconds Gastrointestinal: Normal bowel sounds, Soft and benign Musculoskeletal: No clubbing Integumentary: Other (pallor but improved) Neurological: Normal speech, Normal tone, Normal affect Lymphatics: No axilla or inguinal lymphadenopathy External genitalia: Deferred Rectal: Deferred <Kennedi Lord - Last Filed: 12/19/23 11:56> Assessment And Plan - Plan - Problems (Diagnosis) (1) Pancytopenia Current Visit: Yes Status: Acute Plan: Likely secondary to chemotherapy Order fibrinogen, D-dimer 2 units PRBC ordered Serial CBC She denies melena or dark stools Will consider hematology consultation pending clinical course 12/20/23 Repeat white count 2.0, H/H 11.5/34.2 platelets 137 (2) Hypotension Current Visit: Yes Status: Acute Plan: Continue IV fluids She may require pressors Blood has been ordered Resolved po IV steroids 12/19/23 resolved, current pressure 145/74 (3) Thyroid cancer Current Visit: Yes Status: Acute Plan: History of thyroidectomy, on treatment thyroid studies ordered TSH 0.04 (4) Hypothyroidism Current Visit: Yes Status: Acute Plan: Thyroid studies stable Hold replacement - TSH low 0.040 Reinitiate replacement on 12/20/2023 (5) Migraine Current Visit: Yes Status: Acute Plan: Appears to be chronic issue no acute focal symptoms seen may consider CT head at this time not indicated (6) Chronic pain Current Visit: Yes Status: Acute Plan: Reports having pain pump Will order as needed morphine and Tylenol (7) Diabetes Current Visit: Yes Status: Acute Plan: Will check a hemoglobin A1c Fingerstick blood sugars ACHS Sliding scale insulin - has not required insulin this admission 12/18/23 Glucose 114 12/19/23 glucose 78, continue to hold insulin (use short acting with sliding scale as needed) (8) Hypokalemia Current Visit: Yes Status: Acute Plan: replaced in ed recheck 12/18/23 potassium = 3.8 12/19/23 potassium = 3.4 (patient on replacement protocol) (9) Hypothermia Current Visit: Yes Status: Acute Plan: unclear etiology thyroid studies wnl, hx of thyroidectomy has anemia 6.9/20.5 - three units PRBC - post H/H 12.2/34.8 (12/17) tavo hugger placed- Hydrocortisone given IV - temp normalized ivf given Wood core temp removed 12/18/23, oral temp 97, increase hydrocortisone (10) Adrenal insufficiency as s/s responded to Hydrocortisone pt has not needed insulin during admission may need stress doses of hydrocortisone increase to twice daily hydrocortisone and pt will need to see her spooler rubber strand harsha <Kennedi Lord - Last Filed: 12/19/23 11:56> - Plan Pt seen and examined. I agree with the note by the SCRAPER HAND. She is feeling better after 3 units of blood. Hgb is 11.5 <- 12.2. Monitor H/H. Will replace potassium. Continue hydrocortisone for adrenal insufficiency. Pt denies any headache. as anemia. Hypotension and hypothermia resolved. Continue home meds for other chronic medical problems. <Nilam Luciano - Last Filed: 12/19/23 14:43>
[2023-12-19] MEDS: HYDROCORTISONE 10 MG TAB PO ONE (11:51)
[2023-12-19] MEDS: HYDROCORTISONE 10 MG TAB PO SCH (16:50)
[2023-12-20 05:01] LABS: Absolute Lymphocytes (CBC) 0.2 K/uL (0.7-4.9); Absolute Monocytes 0.2 K/uL (0.1-1.3); Absolute Neutrophil 1.8 K/uL (1.8-8.0); Basophils % 0.1 % (0-1.3); Eosinophils % 1.3 % (0-4.4); Hematocrit 33.4 % (36.0-45.0); Hemoglobin 11.1 g/dL (12.0-15.0); Lymphocytes % 10.7 % (15.3-44.8); MCH 31.3 pg (27.0-35.0); MCHC 33.2 g/dL (32.0-36.0); MCV 94.1 fL (80-100); MPV 7.6 fL (7.6-11.3); Monocytes % 8.4 % (3.3-12.3); Neutrophils % 79.5 % (41.7-73.7); Nucleated Red Blood Cells % 0.4 % (0-0); Platelets 129 thou/uL (152-406); RBC Red Blood Cell Count 3.55 M/uL (3.86-4.86); Red Cell Distribution Width 22.3 % (12.1-15.2)
[2023-12-20 05:20] LABS: Albumin 2.8 g/dL (3.4-5.0); Albumin/Globulin Ratio 1.1 (1.1-1.8); Anion Gap 2.9 mEq/L (5.0-15.0); Bilirubin Total 0.3 mg/dL (0.2-1.0); Globulin 2.5 g/dL (2.3-3.5); Magnesium 1.9 mg/dL (1.6-2.4); Phosphorus 2.1 mg/dL (2.5-4.9); Potassium 3.9 mEq/L (3.5-5.1); Protein, Total 5.3 g/dL (6.4-8.2)
[2023-12-20 06:11] VITALS: TEMP 97
[2023-12-20] MEDS: HYDROCORTISONE 10 MG TAB PO SCH (07:54)
[2023-12-20] MEDS: POTASS/SODIUM PHOSPHATE 1 PKT POWD.PACK PO SCH (08:10)
--- NOTE | 2023-12-20 09:40 | P.DS ---
Admission Date: 12/17/23 Discharge Date: 12/20/23 Reason for Admission: hypotension, anemia Brief History of Present Illness: 48-year-old female presented with complaints of headache. She also reported that she had migraines as well as nausea that started 12 hours before arriving. The patient also states that she has a pain pump and ran out of morphine. She has a complicated medical history including history of chronic pain, diabetes, and thyroid cancer. She has history of thyroidectomy. She is currently taking Pralsetinib 100mg. History was limited due to patient being very lethargic after receiving IV Benadryl. She was noted to be hypotensive in the ER as well as hypothermic. A Uriah hugger was placed. ED treatments include Zofran 4 mg, diphenhydramine 12.5 mg, normal saline 1000 mL, ketorolac 15 mg IV, Rocephin 1 g, additional sodium chloride bolus 1000 cc, potassium Imaging was also done CT scan chest abdomen pelvis. Hospital Course: Ms. Massey arrived for nausea, vomiting, lethargy and hypothermia status post prep for colonoscopy. She has a history of thyroid cancer under treatment and was noted to have pancytopenia upon admission. She was quite anemic, hypotensive, hypoglycemic, hypothermic. She was given 3 units of blood and her hemoglobin improved dramatically. Her other symptoms did not improved substantially until beginning hydrocortisone 100 mg IV twice daily. Her vital signs stabilized, her lab values started returning to normal, and she has not required insulin over the course of her hospitalization. She is felt to have some adrenal insufficiency and will be discharged home with 20 mg hydrocodone p.o. every morning and 10 mg hydrocortisone p.o. q. 1700 with encouragement to follow-up with Dr. Mcconnell (E hematology) and keep a blood sugar log. New prescriptions: Hydrocortisone 20mg po q am and 10mg po q 1700 Continue home medicines as previously prescribed resume levothyroxine but stop insulin and oral diabetic agents for now and keep a blood sugar log GOAL: Clear understanding of disease process Diet: ADA, low sodium Activity: Fall precautions INSTRUCTIONS: Physician Discharge Instructions: Okay to DC IV and DC home Follow-up with primary care provider in 1 to 2 weeks Follow-up with Dr. Mcconnell in 1 to 2-weeks Please call the inpatient unit for any questions or concerns regarding hospital stay Return to the ER for worsening symptoms <Kennedi Lord George - Last Filed: 12/20/23 09:42> Admission Date: 12/17/23 Discharge Date: 12/20/23 Hospital Course: Pt seen and examined. I agree with the note by the FUR TINTER. Pt is feeling better. Hgb is 11.1. Continue hydrocortisone as prescribed. Ok to discharge pt. <AnkitaPietrostanley Hoang - Last Filed: 12/20/23 11:19> Disposition: ROUTINE DISCHARGE Discharge Condition: GOOD Vital Signs/Physical Exam: Temp Pulse Resp BP Pulse Ox 97.0 F 71 16 135/68 95 12/20/23 04:00 12/20/23 04:00 12/20/23 04:00 12/20/23 04:00 12/20/23 04:00 General: Alert, In no apparent distress, Oriented x3 HEENT: Atraumatic, Normocephalic Neck: Supple Respiratory: Normal air movement Cardiovascular: Normal pulses, Regular rate/rhythm Capillary refill: <2 Seconds Gastrointestinal: Normal bowel sounds Musculoskeletal: No clubbing Integumentary: No rashes Neurological: Normal speech, Normal tone, Normal affect Lymphatics: No axilla or inguinal lymphadenopathy External genitalia: Deferred Rectal: Deferred Laboratory Data at Discharge: WBC 2.20 thou/uL (4.3-10.9) L 12/20/23 04:30 Hgb 11.1 g/dL (12.0-15.0) L 12/20/23 04:30 Hct 33.4 % (36.0-45.0) L 12/20/23 04:30 Plt Count 129 thou/uL (152-406) L 12/20/23 04:30 PT 11.3 SECONDS (9.4-12.5) 12/17/23 02:37 INR 1.01 12/17/23 02:37 APTT 38.0 SECONDS (24.3-36.9) H 12/17/23 02:37 Sodium 139 mEq/L (136-145) 12/20/23 04:30 Potassium 3.9 mEq/L (3.5-5.1) D 12/20/23 04:30 BUN 10 mg/dL (7-18) 12/20/23 04:30 Creatinine 0.46 mg/dL (0.55-1.02) L 12/20/23 04:30 Glucose 89 mg/dL (74-106) 12/20/23 04:30 Phosphorus 2.1 mg/dL (2.5-4.9) L 12/20/23 04:30 Magnesium 1.9 mg/dL (1.6-2.4) 12/20/23 04:30 Total Bilirubin 0.3 mg/dL (0.2-1.0) 12/20/23 04:30 AST 72 U/L (15-37) H 12/20/23 04:30 ALT 38 U/L (13-56) 12/20/23 04:30 Alkaline Phosphatase 73 U/L (45-117) 12/20/23 04:30 <Lord,Kennedi George - Last Filed: 12/20/23 09:42> Vital Signs/Physical Exam: Temp Pulse Resp BP Pulse Ox 97.0 F 65 16 174/74 H 92 12/20/23 08:00 12/20/23 08:00 12/20/23 08:00 12/20/23 08:00 12/20/23 08:00 Laboratory Data at Discharge: WBC 2.20 thou/uL (4.3-10.9) L 12/20/23 04:30 Hgb 11.1 g/dL (12.0-15.0) L 12/20/23 04:30 Hct 33.4 % (36.0-45.0) L 12/20/23 04:30 Plt Count 129 thou/uL (152-406) L 12/20/23 04:30 PT 11.3 SECONDS (9.4-12.5) 12/17/23 02:37 INR 1.01 12/17/23 02:37 APTT 38.0 SECONDS (24.3-36.9) H 12/17/23 02:37 Sodium 139 mEq/L (136-145) 12/20/23 04:30 Potassium 3.9 mEq/L (3.5-5.1) D 12/20/23 04:30 BUN 10 mg/dL (7-18) 12/20/23 04:30 Creatinine 0.46 mg/dL (0.55-1.02) L 12/20/23 04:30 Glucose 89 mg/dL (74-106) 12/20/23 04:30 Phosphorus 2.1 mg/dL (2.5-4.9) L 12/20/23 04:30 Magnesium 1.9 mg/dL (1.6-2.4) 12/20/23 04:30 Total Bilirubin 0.3 mg/dL (0.2-1.0) 12/20/23 04:30 AST 72 U/L (15-37) H 12/20/23 04:30 ALT 38 U/L (13-56) 12/20/23 04:30 Alkaline Phosphatase 73 U/L (45-117) 12/20/23 04:30 <Nilam Luciano - Last Filed: 12/20/23 11:19> Diet: ADA Activity: Ad jl <PopKennedi George - Last Filed: 12/20/23 09:42> <Nilam Luciano - Last Filed: 12/20/23 11:19> Home Medications: Baclofen 10 m PO BID 12/18/23 Furosemide [Lasix*] 20 mg PO BIDL 12/18/23 Lamotrigine [Lamictal] 100 mg PO DAILY 12/18/23 Levothyroxine [Synthroid*] 75 mcg PO [id number] 12/18/23 Pralsetinib [Gavreto] 100 mg PO DAILY 12/18/23 Quetiapine [Seroquel*] 100 mg PO BEDTIME 12/18/23 Hydrocortisone [Cortef*] 10 mg PO DAILY 5 PM #60 tab 12/20/23 Hydrocortisone [Cortef*] 20 mg PO PCB #60 tab 12/20/23 New Medications: Hydrocortisone [Cortef*] 20 mg PO PCB #60 tab Hydrocortisone [Cortef*] 10 mg PO DAILY 5 PM #60 tab Physician Discharge Instructions: 48-year-old female presented with complaints of headache. She also reported that she had migraines as well as nausea that started 12 hours before arriving. The patient also states that she has a pain pump and ran out of morphine. She has a complicated medical history including history of chronic pain, diabetes, and thyroid cancer. She has history of thyroidectomy. She is currently taking Pralsetinib 100mg. History was limited due to patient being very lethargic after receiving IV Benadryl. She was noted to be hypotensive in the ER as well as hypothermic. A Uriah hugger was placed. Followup: Malika Mcconnell MD [ACTIVE - CAN ADMIT] - NONE,NONE [UNKNOWN] - ROSI ESTRADA [Primary Care Provider] -
[2023-12-20 10:39] VITALS: BP 174/74
[2023-12-20 10:53] VITALS: O2SAT 92
== END 2023-12-20 12:12 | disposition home or self-care (01) | DRG 809 ==
LOC: ER 23:32 → ERHOLD 12-17 05:26 → 3RD-ICU 12-17 20:20 → 2ND 12-18 14:33
PROVIDERS: ADMIT Internal Medicine; ATTEND Hospitalist
PROC: 02HV33Z Insertion of Infusion Device into Superior Vena Cava, Percutaneous Approach (ICD-10-PCS; 2023-12-17)
PROC: 30233N1 Transfusion of Nonautologous Red Blood Cells into Peripheral Vein, Percutaneous Approach (ICD-10-PCS; principal; 2023-12-18)
PROC: 0T9B70Z Drainage of Bladder with Drainage Device, Via Natural or Artificial Opening (ICD-10-PCS; 2023-12-18)
DX: D61.810 Antineoplastic chemotherapy induced pancytopenia (principal); E27.40 Unspecified adrenocortical insufficiency; F11.23 Opioid dependence with withdrawal; E87.6 Hypokalemia; D64.9 Anemia, unspecified; I95.9 Hypotension, unspecified; C73 Malignant neoplasm of thyroid gland; G89.29 Other chronic pain; E03.9 Hypothyroidism, unspecified; E11.649 Type 2 diabetes mellitus with hypoglycemia without coma; G43.909 Migraine, unspecified, not intractable, without status migrainosus; T45.1X5A Adverse effect of antineoplastic and immunosuppressive drugs, initial encounter; R68.0 Hypothermia, not associated with low environmental temperature; Z88.0 Allergy status to penicillin; Z88.1 Allergy status to other antibiotic agents; Z88.8 Allergy status to other drugs, medicaments and biological substances
CPT/HCPCS: 36415; 51702; 71045; 74176; 80048; 80053; 81001; 82533; 82947; 83036; 83605; 83735; 84100; 84439; 84443; 85014; 85018; 85025; 85379; 85384; 85610; 85730; 86850; 86900; 86901; 86920; 87040; 93005; 99285; J0696; J1200; J1720; J2270; J2405; J3480; J7030; J7040; J7050; P9016